=== PATIENT | female | born 1940 | race Caucasian/White ===

== ENCOUNTER 2018-02-20 08:17 | Inpatient (IN) ==
[~2018-02-20 08:17] MED LIST: Metoprolol Tartrate 25 MG Tablet PO SCH
[2018-02-20] MEDS ORDERED: Iohexol 350 MG/ML 50 ML Vial (for Cath Lab) IVCONTRAST ONE (08:18)
[2018-02-20 10:05] LABS: Baso % (Auto) 0.5 % (0.0-2.0); Eos # (Auto) 0.1 th/mm3 (0.0-0.4); Eos % (Auto) 1.3 % (0.0-4.0); Hematocrit 26.9 % (35.0-46.0); Hemoglobin 8.9 gm/dL (11.6-15.3); Lymph # (Auto) 1.5 th/mm3 (1.0-4.8); Mean Corpuscular HGB Conc 33.1 % (32.0-36.0); Mean Corpuscular Hemoglobin 28.2 pg (27.0-34.0); Mean Corpuscular Volume 85.2 fL (80.0-100.0); Mean Platelet Volume 9.1 fL (7.0-11.0); Mono # (Auto) 0.6 th/mm3 (0.0-0.9); Mono % (Auto) 8.7 % (0.0-8.0); Neut # (Auto) 4.8 th/mm3 (1.8-7.7); Neut % (Auto) 68.5 % (16.0-70.0); Platelet Count 243 th/mm3 (150-450); Red Blood Count 3.16 mil/mm3 (4.00-5.30); Red Cell Distribution Width 14.9 % (11.6-17.2)
[2018-02-20 10:15] LABS: Activated Partial Thrombo Time 23.9 sec (23.4-31.7); Prothrombin Time 10.3 sec (9.8-11.6)
[2018-02-20 10:20] LABS: Calcium 8.6 mg/dL (8.5-10.1); Carbon Dioxide 26.9 meq/L (21.0-32.0); Potassium 4.3 meq/L (3.5-5.1)
[2018-02-20] MEDS ORDERED: Heparin/NS PF Inj 1,000 ML ONE (10:42)
[2018-02-20] MEDS ORDERED: Lidocaine PF 1% Inj 30 ML Vial ONE (10:42)
[2018-02-20] MEDS ORDERED: fentaNYL Citrate Inj 100 MCG/2 ML Ampul ONE (10:43)
[2018-02-20] MEDS ORDERED: Sodium Chlor 0.9% Inj 250 ML IV.SIG ONE (11:21)
[2018-02-20] MEDS ORDERED: Atropine Inj 1 MG/ML Vial IV.PUSH PRN (11:21)
[2018-02-20] MEDS ORDERED: Lidocaine 1% Inj 50 ML Vial INFILTRATN PRN (11:21)
[2018-02-20] MEDS ORDERED: Bacitracin Oint 0.9 GM Packet TOPICAL ONE (11:21)
--- NOTE | 2018-02-20 11:35 | P.PCN ---
Date of procedure: 02/20/18 Pre-op diagnosis: Unstable angina Procedure: audograph operator: Baldomero Robert MD Procedures performed: 1. Fluoroscopy with interpretation 2. Left heart catheterization 3. Left ventriculography 4. Coronary angiography Methods: Risks, benefits, and alternatives were discussed with the patient. Patient understood and consented to the procedure. Patient was brought into the cardiac catheterization lab and placed on the catheterization table. Right groin was prepped and draped in sterile fashion. Right groin was anesthetized with 2% lidocaine. Right common femoral artery was cannulated and a 5 Pakistani 11 cm sheath was placed without difficulty. Left heart catheterization: A 5 Pakistani angled pigtail catheter was advanced across the aortic valve without difficulty. Intra-ventricular hemodynamics pressure 106/20 mmHg with a left ventricular end-diastolic pressure of 20 mmHg. Left ventriculography: Left ventriculography was performed in a right anterior oblique view using a 30 cc contrast injection and good opacification. Left ventricular ejection fraction visually estimated at 50%. There appeared to be anterior, anterolateral, apical, and distal inferoapical hypokinesis. No significant mitral regurgitation noted. Coronary angiography: 1. The left main coronary artery has a stent present. The stent has severe in- stent restenosis present. Estimated severity stenosis 90%. 2. The left anterior descending coronary artery has a stent present in the proximal extending into the mid segment which has severe in-stent restenosis of 90%. There is a diagonal branch which is moderate caliber size and has a stenosis of 90% in-stent. The remainder left anterior descending coronary artery and diagonal branches have minor luminal irregularities. 3. The left circumflex coronary artery gives rise a moderate sized ramus intermedius branch with a 60% stenosis proximally. The left circumflex coronary artery is a codominant vessel giving rise to a moderate-sized posterior descending branch which has only minor luminal irregularities. 4. The right coronary artery is also a codominant vessel giving rise to a posterior descending branch. The mid right coronary artery has a 90-95% calcific stenosis. The remainder the vessel has mild luminal irregularities. Conclusions: Severe left main and three-vessel [place] coronary artery disease with severe in- stent restenosis. Low normal left ventricular systolic function with regional LAD territory mild hypokinesis Normal to mildly elevated left-sided filling pressures Plan: At this point we will stop the diagnostic portion of the procedure. We will need to have a lengthy discussion with the patient and family. There is severe in-stent restenosis for the prior bare-metal stents placed in the left main, left anterior descending, and diagonal branches. A percutaneous revascularization again would be complex requiring left ventricular assist device support and multiple stents. 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 Had like to reexamine the case here with our cardiothoracic surgeons and review the CAT scan results. If there is a possibility for surgical revascularization off-pump, that may be in her best interest. If that is not a possibility, we will have to have a discussion of medical therapy/ hospice versus high risk percutaneous coronary intervention. At this point is going to reinitiate a heparin drip. I am going to discontinue her Brilinta. She would need a P2Y12 assay prior to proceeding with cardiothoracic surgery, if she was a candidate. During that time will hopefully protect her from stent thrombosis with the heparin drip.
--- NOTE | 2018-02-20 11:36 | CATHPROC ---
[facility] HIS Report Study Information Study Number Admission Scheduled Start Study Start [id number] Feb 20 2018 8:17AM 02/20/2018 Feb 20 2018 10:38AM [facility] Cardiac Catheterization Admit Source Facility Department Other [facility] Operator Physician and Clinical Staff Initial Baldomero Medina Concrete Smoother Joseph Ricardo,MEMO Recorder Angelica Donaldson,DESKTOP SUPPORT TECHNICIAN Scrub [place], Megan,DESKTOP SUPPORT TECHNICIAN TECH2 Procedures Performed Procedure Location (Site) Vessel Name Angiogram LV LV Ventricle Coronary Angiograms LCA Left Coronary Coronary Angiograms RCA Right Coronary L Heart Cath Wire insertion Fem Art (right) Femoral Art Equipment Time Insurance Office Manager Description Size Mfg Part Number Used/Scraped TRANSDUCER, TRUWAVE [id number] 10:50 [employer] * Used W/STOCKCOCK *[id number] *[id number] *[id number] 10:50 [employer] BLANKET,WARM AIR CCL * Used *[id number] 10:50 [employer] PACK, CCL CUSTOM * Used *[id number] 10:50 [employer] PACER PEN, SKIN DUAL W/ RULER * Used *[id number] PIG STRAIGHT DXTERITY 11:13 [employer] FR 5 [id number] Used CATHETER [id number] 10:50 [employer] WIRE, 3MMJ .035 180CM 180CM Used *[id number] 10:50 [employer] MANIFOLD, 4 PORT * Used *[id number] 10:50 [employer] OMNIPAQUE, 350 MG, 150ML 150ML [id number] Used [id number] 10:50 [employer] MEDICAL SHEATH, FR5 TERUMO (10CM) FR 5 Used *[id number] History: Allergies Allergy Reaction No Known Allergies History: Risk Factors Family History of Hypertension Dyslipidemia Previous OH Previous Heart Failure Premature CAD Yes Yes Yes No No Prior Valve Prior PCI Prior PCIDate Prior CABG Surgery No Yes 04/07/2017 No Cerebrovascular Peripheral Artery Chronic Lung On Dialysis Diabetes Diabetes Therapy Disease Disease Disease No Yes Yes No Yes Oral History: Stress Tests Stress or Imaging Studies Performed No History: OH/CV Data Previous Cath Date 11/05/2017 History: Other Current Smoker Method Quit No Cigarettes 27 Years Ago Comment 1/2 PACK PER DAY FOR 38 YEARS Labs Hgb (g/dl) Hct (%) WBC (l/cumm) Platelets (thousands) 11.60-17.00 35.00-51.00 4.00-11.00 150.00-450.00 8.9 26.9 7 243 Glucose (mg/dl) BUN (mg/dl) Creatinine (mg/dl) BUN:Creatinine (1:x) 74.00-106.00 7.00-18.00 0.50-1.30 10.00-20.00 118 16 0.9 17.8 Na (meq/l) K (meq/l) 136.00-145.00 3.50-5.10 142 4.3 CPK-MB (ng/ML) 0.50-3.60 Not Drawn Medication Medication Total Dose (Bolus/Oral) Medication Total Dosage/Unit 1% XYLOCAINE 20 mL FENTANYL 50 mcg VERSED 1 mg Medications (Bolus/Oral) Medication Time Given Dosage/Unit Administered By Reason 02/20/2018 10:57:17 VERSED 1 mg Joseph Ricardo AM 1 mg VERSED given in lab by Joseph Ricardo RN in Right Antecubital via Peripheral IV. Ordered by Baldomero Glaser. 02/20/2018 10:58:18 FENTANYL 50 mcg Joseph Ricardo AM 50 mcg FENTANYL given in lab by Joseph Ricardo RN in Right Antecubital via Peripheral IV. Ordered by Baldomero Robert. 02/20/2018 10:59:51 1% XYLOCAINE 20 mL Baldomero Robert AM 20 mL 1% XYLOCAINE given in lab by Baldomero Robert via Subcutaneous. Ordered by Baldomero Robert. Medication (Drip) Medication Time Given Dosage/Unit Concentration/Unit Diluent (ml) Solution 02/20/2018 10:46:01 IV Solutions 0 mL (IV) 500 NaCl .9 AM IV Solutions given in lab by Joseph Ricardo RN in Right Antecubital via Peripheral IV. Pump/Drip Ramon w = 20 ml/hr using NaCl .9. Ordered by Baldomero Robert. Initial Case Assessment Cardiovascular HR NIBP 79 146/73 Edema Present Skin color Skin None Normal Warm Dry Circulatory - Right Pulses Dorsalis Pedis Femoral d 3 Scale (0,1,2,3,4,d) Circulatory - Left Pulses Dorsalis Pedis Femoral d 2 Scale (0,1,2,3,4,d) Neurological State Oriented to time-place- Alert Moves all extremities person Respiration - General Respiration Rate SpO2 (%) (B/min) 12 99 Chronological Log Time Study Chronological Log 10:38:13 Patient arrived via Bed. 10:38:14 Patient Name, D.O.B, / Armband Verified By R.N. 10:38:15 Consent signed by the physician and the patient and verified by the [facility] Operator staff. 10:38:17 Pre-op and post- op instructions given; patient acknowledges understanding of instructions. 10:38:20 Verbal Stimulation=2 Physical Stimulation=2 Airway=2 Respiration=2 TOTAL=8. (0=absent, 1=li mited, 2=present) 10:42:58 Reference ECG taken Vitals capture started with the following parameters, Patient=Adult, Interval=5 min, Initial Pr gjiaby=429 mmHg, 10:45:51 Deflation Rate=5 mmHg, Cuff placed on Left Arm 10:45:55 Patient has been NPO for More than 6Hrs. 10:45:56 NO Skin Breakdown- 10:45:59 Patient Warmer Placed on the Table. 10:46:01 A # 20 IV was noted in the Antecubital (right). Grade = 0 IV Solutions given in lab by Joseph Ricardo RN in Right Antecubital via Peripheral IV. Pump/Dr ip Flow = 20 ml/hr using 10:46:01 NaCl .9. Ordered by Baldomero Robert. 10:46:02 History and physical on the chart or being dictated. 10:46:29 HR=79 bpm, AKKB=737/73 mmhg, SpO2=99.0 %, Resp=12 B/min, Pain=0, Frankie=10, Snow=2 Assessment: Initial Case, HR=79 BPM, HQLK=151/73 mmhg, Edema=None, Color=Normal, Skin = Warm, D ry Right Pulses: Jourdan Ped=d, Femoral=3 10:51:09 Left Pulses: Jourdan Ped=d, Femoral=2 Neurological: State=Alert, Ox3, BERRY Respiration: Resp=12 B/min, SpO2=99 % 10:51:30 HR=78 bpm, JZTX=941/68 mmhg, SpO2=99.0 %, Resp=13 B/min, Pain=0, Frankie=10, Snow=2 10:52:03 Bilateral groins prepped with 2% chlorhexidine, and draped after a 3 minute waiting time. 10:53:09 Pressure channel 1 zeroed. 10:56:29 HR=80 bpm, UCBI=083/70 mmhg, SpO2=98.0 %, Resp=12 B/min, Pain=0, Frankie=10, Snow=2 Time Out. Correct patient, correct procedure, correct physician, labs, allergies, and equipment verified with medical laboratory manager 10:57:13 team present. Fire risk assesment completed (see hard stop sheet for coding). Time Out Conc urred by MD and individual staff in procedure. 10:57:17 1 mg VERSED given in lab by Joseph Ricardo RN in Right Antecubital via Peripheral IV. Orde red by Baldomero Robert. 10:58:18 50 mcg FENTANYL given in lab by Joseph Ricardo RN in Right Antecubital via Peripheral IV. Ordered by Baldomero Robert. 10:58:19 Case Start 10:59:51 20 mL 1% XYLOCAINE given in lab by Baldomero Robert via Subcutaneous. Ordered by Kala Robert en. 10:59:59 Access site was Right Femoral Artery. 11:00:17 A SHEATH, FR5 TERUMO (10CM) FR 5 was advanced into the Fem Art (right) using the Percutaneo us technique. 11:00:27 A WIRE, 3MMJ .035 180CM 180CM was inserted via Fem Art (right). A JR 4.0 INFINITI CATHETER FR 5 was advanced over a wire. OMNIPAQUE, 350 MG, 150ML 150ML was us ed for 11:00:34 injections. 11:01:28 HR=77 bpm, ZVSO=520/59 mmhg, SpO2=90.0 %, Resp=20 B/min, Pain=0, Frankie=10, Snow=2 11:01:50 Wire removed Recorded Pressure: Ao, HR=73, Condition=Condition 1 11:02:27 (Aorta) Ao 100/40/64 Recorded Pressure: LV, HR=79, Condition=Condition 1 11:02:34 (Left Ventricle) LV 110/41/41 11:04:04 The RCA was injected and visualized at various angles. OMNIPAQUE, 350 MG, 150ML 150ML used . After removing the current catheter a JL 4.0 INFINITI CATHETER FR 5 was advanced over a WIRE, 3 MMJ .035 180CM 11:05:57 180CM. 11:06:07 The LCA was injected and visualized at various angles. OMNIPAQUE, 350 MG, 150ML 150ML use d. 11:06:27 HR=82 bpm, KCUC=957/57 mmhg, SpO2=94.0 %, Resp=19 B/min, Pain=0, Frankie=10, Snow=2 11::07 Catheter was removed ::06 A PIG STRAIGHT DXTERITY CATHETER FR 5 was advanced over a wire. contrast was used for inje ctions. 11:11:26 HR=80 bpm, FPIL=386/64 mmhg, SpO2=95.0 %, Resp=20 B/min, Pain=0, Frankie=10, Snow=2 11:14:18 The LV was injected at 10 cc/sec for a total of 30. OMNIPAQUE, 350 MG, 150ML 150ML used. Recorded Pressure: LV, HR=76, Condition=Condition 1 11:14:47 (Left Ventricle) LV 106/20/28 11:16:27 HR=79 bpm, NIBP=99/55 mmhg, SpO2=95.0 %, Resp=19 B/min, Pain=0, Frankie=10, Snow=2 11:17:00 Catheter was removed 11:17:34 Case End (Physician broke scrub) 11:17:50 Sheath removed; pressure applied to access site. 11:21:24 HR=79 bpm, RFAQ=328/57 mmhg, Resp=20 B/min, Pain=0, Frankie=10, Snow=2 11:26:25 HR=72 bpm, PIWN=109/56 mmhg, SpO2=98 %, Resp=19 B/min, Pain=0, Frankie=10, Snow=2 11:30:29 Sterile dressing applied to site 11:30:33 No case complications noted. 11:31:28 HR=71 bpm, RKOW=698/57 mmhg, SpO2=96.0 %, Resp=20 B/min, Pain=0, Frankie=10, Snow=2 11:32:47 Vitals capture stopped. 11:33:02 A Left Heart Cath was performed. 11:33:50 Patient moved to stretcher End Study - Contrast Media Used In Study Contrast Total Opened (mL) Total Used (mL) Total Wasted (mL) Omnipaque 45 45 0 End Study - Maximum Contrast Load Max Contrast Load (mL) 282.8 End Study - Radiation Exposure Fluoro Time (minutes) 3.3 End Study - Patient Disposition Complications Transferred To No [facility] Operator Holding
[2018-02-20] MEDS ORDERED: Dextrose 50% in Water 50 ML Vial IV.PUSH PRN ×2 (12:58→17:07)
[2018-02-20] MEDS ORDERED: Sodium Chloride 0.9% Irr Bot 500 ML, ceFAZolin Inj 500 MG IRRIGATION SCH ×2 (13:00)
[2018-02-20] MEDS ORDERED: Sodium Chlor 0.9% Inj 77.5 ML, Papaverine Inj 60 MG, Nitroglycerin Inj 100 MCG, dilTIAZ... IRRIGATION SCH ×3 (13:00)
[2018-02-20] MEDS ORDERED: Chlorhexidine 4% Topical 120 APPLIC/120 ML Bottle TOPICAL SCH (13:00)
[2018-02-20] MEDS ORDERED: ceFAZolin Inj 2,000 MG in Sodium Chlor 0.9% Inj 80 ML IV.SIG SCH (13:00)
[2018-02-20] MEDS ORDERED: ceFAZolin 2 GM IV IV.SIG SCH (14:00)
[2018-02-20] MEDS ORDERED: Insulin Regular (For Infusion) 100 UNIT in Sodium Chlor 0.9% Inj 99 ML IV.CONT PRN (14:00)
--- NOTE | 2018-02-20 14:56 | US ---
EXAM DATE: 02/20/2018 2:41 PM EST AGE/SEX: 77 years / Female INDICATIONS: Pre-op CABG. CLINICAL DATA: This is the patient's initial encounter. Patient reports that signs and symptoms have been present for 1 day and indicates a pain score of 0/10. MEDICAL/SURGICAL HISTORY: Cardiovascular disease. Diabetes. Hypercholesterolemia. Hypertensi on. PAD/ PVD. Uterine cancer. Coronary artery stent. COMPARISON: No prior exams available for comparison. TECHNIQUE: Venous ultrasound of both lower extremities was performed from the inguinal ligament to t he proximal calf. Real-time, color Doppler and spectral tracing, compression and augmentation techni ques were used. FINDINGS: Right Leg: Normal compression of the deep venous system from the inguinal region to the proximal shanice f. No echogenic clot is seen. Normal response of the venous system to augmentation and respiration. Left Leg: Normal compression of the deep venous system from the inguinal region to the proximal calf . No echogenic clot is seen. Normal response of the venous system to augmentation and respiration. CONCLUSION: 1. Negative for deep venous thrombosis Electronically signed by: Rickie Guerrier MD 02/20/2018 2:55 PM EST
--- NOTE | 2018-02-20 14:57 | US ---
EXAM DATE: 02/20/2018 2:44 PM EST AGE/SEX: 77 years / Female INDICATIONS: Pre-op CABG. CLINICAL DATA: This is the patient's initial encounter. Patient reports that signs and symptoms have been present for 1 day and indicates a pain score of 0/10. MEDICAL/SURGICAL HISTORY: Cardiovascular disease. Diabetes. Hypercholesterolemia. Hypertensi on. PAD/ PVD. Uterine cancer. Coronary artery stent. COMPARISON: [facility] [place] VENOUS DOPPLER LEG BI, 02/20/2018. . MEASUREMENTS: RIGHT THIGH: Proximal:__5 mm Mid:__ 3 mm Distal:__3 mm LEFT THIGH: Proximal:__6 mm Mid:__4 mm Distal:__3 mm RIGHT CALF: Proximal:__1 mm Mid:__Non-visualized Distal:__Non-visualized LEFT CALF: Proximal:__1 mm Mid:__Thrombosed Distal:__Thrombosed FINDINGS: The venous system of the lower extremities are patent by color Doppler imaging. Measurements of the leg veins (in mm) are listed above. CONCLUSION: 1. Venous mapping as described above. Thrombosis of calf vessels on the left Electronically signed by: Rickie Guerrier MD 02/20/2018 2:56 PM EST
--- NOTE | 2018-02-20 15:17 | US ---
EXAM DATE: 02/20/2018 2:36 PM EST AGE/SEX: 77 years / Female INDICATIONS: Pre-op CABG. CLINICAL DATA: This is the patient's initial encounter. Patient reports that signs and symptoms have been present for 1 day and indicates a pain score of 0/10. MEDICAL/SURGICAL HISTORY: Cerebrovascular disease. Diabetes. Hypercholesterolemia. Hypertens ion. PAD/PVD. Uterine cancer. Coronary artery stent. COMPARISON: . VELOCITY PARAMETERS: ICA/CCA Ratio: Right 5.5 , Left 3.3 ICA: Right 375 cm/sec, Left 266 cm/sec CCA: Right 69 cm/sec, Left 80 cm/sec ECA: Right 120 cm/sec, Left 141 cm/sec Vertebral: Right 90 cm/sec antegrade, Left 56 cm/sec antegrade FINDINGS: Right Carotid: Significantly elevated ratio and velocity in the right internal carotid with extensive atherosclerotic disease critical stenosis is suspected. Left Carotid: Elevation of the velocities and ratios in the left internal carotid high-grade stenosi s is suspected. The waveforms are within normal limits. CONCLUSION: 1. Right Internal Carotid Artery: High-grade to critical stenosis internal carotid origin 2. Left Internal Carotid Artery: High-grade stenosis internal carotid origin 3. CT angiography could be used further evaluate Electronically signed by: Rickie Guerrier MD 02/20/2018 3:16 PM EST
--- NOTE | 2018-02-20 15:48 | P.CONIM ---
History of Present Illness Consult date: 02/20/18 Requesting Physician: Baldomero Robert Reason for Consult: Medical Management Primary Care Provider: Kain Tinajero History of Present Illness: Mrs. Meredith is a pleasant 77 y/o female with CAD/hx of IN in 11/2017, HTN, PAD, hyperlipidemia, and diabetes mellitus. She was previously hospitalized at [facility] in 11/2017 for NSTEMI. At that time she underwent LHC on 11/10/[address] Robert resulting in successful orbital rotational atherectomy and balloon angioplasty with endovascular stenting with bare metal stents to the left main, mid LAD, and diagonal branches. 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 She was switched from Plavix to Brilinta and ASA during that admission. Pt was followed as an outpt by Dr. Robert and continued to have intermittent chest pain. She has been on Imdur 120mg daily without relief. [place] [facility] [place] with cardiac catheterization as she had noted EKG changes on 02/19/[address] Fenton outpt notes, which noted ST-T depression anterolaterally in V4-V6 when compared to previous EKG from 01/01/2018. Pt underwent LHC on 02/20/18 which revealed severe left main and three-vessel [place] coronary artery disease with severe in-stent restenosis, low normal left ventricular systolic function with regional LAD territory mild hypokinesis, and normal to mildly elevated left-sided filling pressures. Pt is being admitted for evaluation by Cardiothoracic surgery for consideration for CABG. Pt has been placed on Heparin gtt. She currently denies any chest pain, SOB, palpitations, dizziness, nausea/vomiting, or headaches. Past Medical Hx: CAD with hx of IN in 11/2017 HTN PAD Hyperlipidemia Diabetes mellitus Diabetic nephropathy Hx of cervical cancer PUD Anemia CKD, stage 3 2D echo (11/06/2017) --> EF 55-60%, Global left ventricular wall motion and contractility are WNL. Past Surgical Hx: LHC on 11/10/[address] Robert --> successful orbital rotational atherectomy and balloon angioplasty with endovascular stenting with bare metal stents to the left main, mid LAD, and diagonal branches. EGD on 11/08/[address] Álvaro --> non bleeding ulcer, gastritis, gastric erosions and esophagitis. Thromboendarterectomy Partial hysterectomy in 1981 Cataract surgery Tonsillectomy Family Hx: Brothers with hx of CAD Social Hx: Remote hx of tobacco use, smoked less than 1ppd x 40 years, quit in 1991 Denies any alcohol or illicit drug use Pt lives locally with her [facility] Medical History Medical History CAD (coronary artery disease) (Acute) Diabetes (Acute) Glaucoma (Acute) HLD (hyperlipidemia) (Acute) HTN (hypertension) (Acute) PAD (peripheral artery disease) (Acute) PVD (peripheral vascular disease) (Acute) Uterine cancer (Acute) Surgical History Surgical History Stented coronary artery (Acute) Social History Social History Substance History: No History of Abuse Smoking Status: Former smoker Tobacco Type: Cigarettes How Often Do You Have a Drink Containing Alcohol: Never Medications and Allergies Allergies Allergy/AdvReac Type Severity Reaction Status Date / Time No Known Allergies Allergy Mild Uncoded 08/30/09 10:27 Home Medications Medication Instructions Recorded Confirmed Type albuterol sulfate [Ventolin HFA] 2 puff INHALATION Q4-6H PRN 02/20/18 02/20/18 History aspirin [Aspirin Low Dose] 81 mg PO DAILY 02/20/18 02/20/18 History brimonidine 1 drp OPHTHALMIC (EYE) TID 02/20/18 02/20/18 History clonidine 1 patch TRANSDERMAL QWEEK 02/20/18 02/20/18 History dorzolamide 1 drp OPHTHALMIC (EYE) TID 02/20/18 02/20/18 History ferrous sulfate, dried [Slow 160 mg PO DAILY 02/20/18 02/20/18 History Release Iron] isosorbide mononitrate 120 mg PO DAILY 02/20/18 02/20/18 History lisinopril 20 mg PO DAILY 02/20/18 02/20/18 History loratadine [Claritin] 10 mg PO DAILY PRN 02/20/18 02/20/18 History metformin 500 mg PO BID 02/20/18 02/20/18 History metoprolol tartrate 50 mg PO BID 02/20/18 02/20/18 History nitroglycerin 0.4 mg SUBLINGUAL Q5-15M PRN 02/20/18 02/20/18 History pantoprazole 20 mg PO DAILY 02/20/18 02/20/18 History simvastatin 40 mg PO QPM 02/20/18 02/20/18 History timolol 1 drop EACH EYE DAILY 02/20/18 02/20/18 History Active Medications: Active Medications Atropine Sulfate (Atropine Inj) 0.5 mg IV.PUSH UNSCH PRN PRN Reason: VAGAL REPONSE Chlorhexidine Gluconate (Hibiclens 4% Topical) 1 applicatio TOPICAL PATIENT INTAKE REPRESENTATIVE MAIRANO Stop: 02/26/18 12:58 Sodium Chloride 77.5 ml/Papaverine HCl 60 mg/Nitroglycerin 100 mcg/Diltiazem HCl 100 mg 0 ml IRRIGATION PATIENT INTAKE REPRESENTATIVE MARIANO Stop: 02/26/18 12:58 Sodium Chloride 500 ml/ (Cefazolin Sodium 500 mg) 0 ml IRRIGATION PATIENT INTAKE REPRESENTATIVE [facility] Stop: 02/26/18 13:00 Dextrose (D50w Vial) 50 ml IV.PUSH UNSCH PRN PRN Reason: PER HYPOGLYCEMIA PROTOCOL Heparin Sodium/Dextrose (Heparin/D5w 25,000 U/250 Ml) 25,000 unit in 250 mls @ 0 mls/hr IV.CONT TITRATE PRN; Protocol PRN Reason: Per Protocol Insulin Human Regular 100 unit (/ Sodium Chloride) 100 mls @ 3 mls/hr IV.CONT TITRATE PRN; Protocol PRN Reason: See Protocol Cefazolin Sodium/Dextrose (Ancef 2 Gm Premix Inj) 2 gm in 50 mls @ 100 mls/hr IV.SIG PATIENT INTAKE REPRESENTATIVE [facility] Stop: 02/26/18 13:59 Lidocaine HCl (Xylocaine 1% Inj (50 Ml)) 10 ml INFILTRATN UNSCH PRN PRN Reason: SHEATH REMOVAL Stop: 02/21/18 11:20 Lorazepam (Ativan Inj) 0.5 mg IV.PUSH UNSCH PRN PRN Reason: ANXIETY Stop: 02/21/18 11:20 Metoprolol Tartrate (Lopressor) 12.5 mg PO PATIENT INTAKE REPRESENTATIVE [facility] Stop: 02/26/18 13:00 Oxycodone/Acetaminophen (Percocet 5/325 Mg) 1 tab PO Q4H PRN PRN Reason: PAIN SCALE 1 TO 4 Oxycodone/Acetaminophen (Percocet 5/325 Mg) 2 tab PO Q4H PRN PRN Reason: PAIN SCALE 5 TO 10 Sodium Chloride (Ns Flush) 2 ml IV.FLUSH BID MARIANO Sodium Chloride (Ns Flush) 2 ml IV.FLUSH PRN PRN PRN Reason: FLUSH AFTER USING IV ACCESS Physical Exam Vital signs: Last Vital Signs Temp 97.8 F 02/20/18 08:30 Pulse 72 02/20/18 08:30 Resp 15 02/20/18 08:30 BP 137/66 02/20/18 08:30 Pulse Ox 100 02/20/18 11:35 Narrative: GENERAL: NAD, AAOx3 SKIN: Warm and dry. HEENT: Atraumatic. Normocephalic. Pupils equal and round. No scleral icterus. No injection or drainage. No nasal bleeding or discharge. Mucous membranes pink and moist. Trachea midline. No JVD. CARDIO: Regular rate and rhythm. RESP: No accessory muscle use. Clear to auscultation. Breath sounds equal bilaterally. ABD: Abdomen soft, non-tender, nondistended. Hepatic and splenic margins not palpable. EXT: Extremities without clubbing, cyanosis, or edema. No obvious deformities. NEURO: Awake and alert. No obvious cranial nerve deficits. Motor grossly within normal limits. Five out of 5 muscle strength in the arms and legs. Normal speech. PSYCH: Appropriate mood and affect; insight and judgment normal. Results Labs CBC & Chem 7: 02/20/18 09:55 02/20/18 09:55 Assessment and Plan Assessment (1) CAD (coronary artery disease): Code(s): I25.10 - Atherosclerotic heart disease of [place] coronary artery without angina pectoris Status: Chronic (2) Hyperlipidemia: Code(s): E78.5 - Hyperlipidemia, unspecified Status: Chronic (3) HTN (hypertension): Code(s): I10 - Essential (primary) hypertension Status: Chronic (4) Diabetes mellitus: Code(s): E11.9 - Type 2 diabetes mellitus without complications Status: Chronic Plan CAD with in-stent restenosis Chest pain with EKG changes - Pt is a 77 y/o female with CAD/hx of IN in 11/2017, HTN, PAD, hyperlipidemia, and diabetes mellitus. She was previously hospitalized at [facility] in 11/2017 for NSTEMI. At that time she underwent LHC on 11/10/[address] Robert resulting in successful orbital rotational atherectomy and balloon angioplasty with endovascular stenting with bare metal stents to the left main, mid LAD, and diagonal branches. 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 She was switched from Plavix to Brilinta and ASA during that admission. Pt was followed as an outpt by Dr. Robert and continued to have intermittent chest pain. She has been on Imdur 120mg daily without relief. - [place] [facility] [place]evaluation with cardiac catheterization as she had noted EKG changes on 02/19/[address] Fenton outpt notes, which noted ST-T depression anterolaterally in V4-V6 when compared to previous EKG from 01/01/2018. - Pt underwent LHC on 02/20/18 which revealed severe left main and three-vessel [place] coronary artery disease with severe in-stent restenosis, low normal left ventricular systolic function with regional LAD territory mild hypokinesis, and normal to mildly elevated left-sided filling pressures. - Pt is being admitted for evaluation by Cardiothoracic surgery for consideration for CABG. - Pt has been placed on Heparin gtt. - Resume home doses of Imdur, Metoprolol, Simvastatin, Lisinopril, and Clonidine patch. - Pt has been evaluated by Cardiothoracic surgery and pending pre-operative workup is tentatively planned for CABG next week. HTN - Cont. home meds - Monitor Diabetes Mellitus, Hgb A1C 5.0 on 02/09/18 - Hold Metformin 500mg BID - NovoLog SSI - Accu checks Hyperlipidemia - Cont. home meds
--- NOTE | 2018-02-20 16:16 | P.PNCV ---
- Note Subjective/Hospital Course: pt seen and evaluated, full consult to follow sts data discussed with pt RIS[facility]ORES Procedure: Isolated CAB CALCULATE Risk of Mortality: 4.478% Renal Failure: 2.659% Permanent Stroke: 1.476% Prolonged Ventilation: 13.305% DSW Infection: 0.163% Reoperation: 4.788% Morbidity or Mortality: 19.894% Short Length of Stay: 20.500% Long Length of Stay: 9.830% Objective: Vital Signs - 24 hr 02/20/18 08:30 02/20/18 11:35 Temperature 97.8 F Pulse Rate 72 Respiratory Rate 15 Blood Pressure 137/66 Pulse Oximetry 94 L 100 Labs: Laboratory Results - last 12 hr 02/20/18 02/20/18 02/20/18 09:55 09:55 09:55 WBC 7.0 RBC 3.16 L Hgb 8.9 L Hct 26.9 L MCV 85.2 MCH 28.2 MCHC 33.1 RDW 14.9 Plt Count 243 MPV 9.1 Neut % (Auto) 68.5 Lymph % (Auto) 21.0 [place] % (Auto) 8.7 H Eos % (Auto) 1.3 Baso % (Auto) 0.5 Neut # (Auto) 4.8 Lymph # (Auto) 1.5 [place] # (Auto) 0.6 Eos # (Auto) 0.1 Baso # (Auto) 0.0 WBC Differential . Differential Comment Auto diff final PT 10.3 INR 1.0 APTT 23.9 Sodium 142 Potassium 4.3 Chloride 108 H Carbon Dioxide 26.9 Anion Gap 7 BUN 16 Creatinine 0.96 Estimated GFR 56 L Random Glucose 118 H Calcium 8.6 Result Diagrams: 02/20/18 09:55 02/20/18 09:55
[2018-02-20] MEDS: Heparin Drip 25,000 UNIT/250 ML BAG IV.CONT PRN (16:44)
[2018-02-20 16:46] LABS: Bilirubin,Urine Negative (Negative); Clarity,Urine Clear (Clear); Color,Urine Yellow (Yellw/Straw); Glucose,Urine (UA) Negative (Negative); Leukocyte Esterase,Urine Trace (Negative); Mucus,Urine Few /lpf (Occasional); Nitrite,Urine Negative (Negative); Specific Gravity,Urine 1.031 (1.002-1.035); Squamous Epithelial Cell,Urine 1 /hpf (0-5)
[2018-02-20] MEDS ORDERED: Loratadine 10 MG Tablet PO PRN (16:56)
--- NOTE | 2018-02-20 16:56 | MB ---
cc: Suri Dos Santos DATE: 02/20/2018 HISTORY OF PRESENT ILLNESS: A 77-year-old patient of Dr. Baldomero Robert; also Kain Tinajero, Primary Care; who was electively admitted for a cardiac catheterization complaining of intermittent chest pain, midsternal heaviness radiating across her chest, mainly occurs at night. She has a significant history of coronary artery disease. She has been maximized on medication to include Imdur extended release 120 daily, Brilinta and aspirin; also has chronic claudication of her lower extremities, mainly the left leg. She was recently hospitalized for a non-STEMI in November 2017, where she underwent heart catheterization, placement of an Impella device. She had an orbital rotational atherectomy of the left main coronary artery, also a PCI endovascular stenting with bare metal stents the left main, mid left, anterior descending and diagonal branches. Despite maximizing medications the patient has had continued angina; underwent catheterization today, which showed an ejection fraction of 50%, left main disease of 90% proximal LAD, 90%, the mid distal LAD 30%. The diagonal was 90%, the circumflex was 20%, the RCA 90% and the ramus 75%. We were consulted to evaluate for coronary artery bypass grafting. PAST MEDICAL HISTORY: Includes peripheral arterial disease, hypertension, coronary artery disease, hyperlipidemia, chronic anemia, chronic kidney disease stage III, diabetes mellitus with neuropathy, hypertension, hyperlipidemia, lumbar radiculopathy. PAST SURGICAL HISTORY: 1. Includes recent bare-metal stent placement and November 2017, bilateral cataract surgery. She has had an atherectomy of the left leg for SFA occlusion; EGD where they found nonbleeding ulcer some gastritis, history of hysterectomy, thromboendarterectomy, tonsillectomy. ALLERGIES: THE PATIENT HAS NO KNOWN ALLERGIES. HOME MEDICATIONS: Include: 1. Simvastatin. 2. Metoprolol. 3. Lisinopril. 4. Clonidine. 5. Protonix. 6. Metformin. 7. Claritin. 8. Imdur. 9. Ventolin inhaler. 10. Nitro p.r.n. 11. Ferrous sulfate. 12. Aspirin. 13. Timolol eyedrops. 14. Dorzolamide 15. Brilinta. FAMILY HISTORY: Noncontributory. SOCIAL HISTORY: No alcohol; patient is with children, prior history of tobacco abuse. REVIEW OF SYSTEMS: GENERAL: No night sweats, fever, heat and cold intolerance. SKIN: No psoriasis, itching or hives. HEENT: No blurred vision, hearing loss. RESPIRATORY: Positive for shortness of breath. CARDIOVASCULAR: As above in the HPI. GASTROINTESTINAL: No diarrhea or vomiting. GENITOURINARY: No burning, frequency, urgency. CENTRAL NERVOUS SYSTEM: No history of TIA, CVA or seizure disorder. ENDOCRINOLOGY: Positive for diabetes. PHYSICAL EXAMINATION: VITAL SIGNS: Blood pressure 130/60, heart rate is 72, temperature max 97.8, O2 saturation 100 on room air. GENERAL: Awake, alert stated age, in no acute distress. Daughters are at the bedside and the . HEENT: Head is normocephalic, atraumatic. She does have a carotid bruit on the left, also on the right. HEART: Heart sounds S1, S2. She has got a grade 2/6 systolic murmur best heard in the right upper sternal border. LUNGS: Diminished in the bases, otherwise clear to auscultation. ABDOMEN: Soft, nontender. No masses or organomegaly. EXTREMITIES: Reveal no cyanosis, clubbing, or edema. LABORATORY DATA: Recent lab work shows hemoglobin 9.1, hematocrit of 29. White cell count of 6.5, platelet count of 283. Sodium 139, potassium 4.3, BUN of 16, creatinine 0.97. RADIOLOGICAL EXAMS: 1. Right internal carotid has high-grade critical stenosis in the internal carotid origin. The left has a high-grade stenosis in the internal carotid origin. 2. CTA is currently pending. IMPRESSION: This is a 77-year-old female with multiple comorbidities with an STS risk score 4.478. Cardiac films have been evaluated by Dr. Arabella Avila; evaluation for coronary artery bypass graft x4. At this time, we will schedule 02/25/2018. In the meantime, she is to obtain the CTA of the neck in regard to her carotid artery stenosis. She is also to be off the Brilinta for 5 days prior to surgery. Continue home medications. We will need to recheck her hemoglobin with her chronic history of anemia. I have discussed this also with Dr. Robert. ELIO Petty MD JRT/argenis , 04:27 PM , 04:39 PM
[2018-02-20] MEDS: Nitroglycerin Drip Premix 50 MG/250 ML BOTTLE IV.CONT PRN (18:30)
[2018-02-20] MEDS: Dorzolamide 2% Opth Drops 10 ML Bottle EACH EYE SCH (18:47)
[2018-02-20] MEDS: Brimonidine 0.2% Opth Drops 5 ML Bottle EACH EYE SCH (18:47)
[2018-02-20] MEDS ORDERED: Nitroglycerin Drip Premix 50 MG/250 ML BOTTLE ONE (19:30)
[2018-02-20] MEDS: Metoprolol Tartrate 50 MG Tablet PO SCH (20:53)
[2018-02-20] MEDS: Insulin NovoLOG Aspart Correctional Sugar Inj SQ SCH (21:20)
[2018-02-20] MEDS: Lisinopril 10 MG Tablet PO SCH (21:25)
[2018-02-21 00:44] LABS: Baso # (Auto) 0.1 th/mm3 (0.0-0.2); Baso % (Auto) 0.7 % (0.0-2.0); Eos # (Auto) 0.1 th/mm3 (0.0-0.4); Eos % (Auto) 1.3 % (0.0-4.0); Hematocrit 27.1 % (35.0-46.0); Hemoglobin 8.7 gm/dL (11.6-15.3); Lymph # (Auto) 1.8 th/mm3 (1.0-4.8); Lymph % (Auto) 24.9 % (9.0-44.0); Mean Corpuscular HGB Conc 32.1 % (32.0-36.0); Mean Corpuscular Hemoglobin 27.2 pg (27.0-34.0); Mean Corpuscular Volume 84.8 fL (80.0-100.0); Mean Platelet Volume 9.2 fL (7.0-11.0); Mono # (Auto) 0.6 th/mm3 (0.0-0.9); Mono % (Auto) 8.6 % (0.0-8.0); Neut # (Auto) 4.5 th/mm3 (1.8-7.7); Neut % (Auto) 64.5 % (16.0-70.0); Platelet Count 242 th/mm3 (150-450); Red Blood Count 3.19 mil/mm3 (4.00-5.30); Red Cell Distribution Width 15.1 % (11.6-17.2); White Blood Count 7.1 th/mm3 (4.0-11.0)
[2018-02-21] MEDS: Insulin NovoLOG Aspart Correctional Sugar Inj SQ SCH ×4 (07:43→20:25)
--- NOTE | 2018-02-21 08:41 | P.PNCA ---
Subjective Interval history: Family at bedside. The patient had heavy left-sided chest pain radiating to the left arm last night, 8/10 in severity, started on nitro gtt. which she states helps a lot and chest discomfort now down to about 4/10. Medications and Allergies Active Medications: Active Medications Atropine Sulfate (Atropine Inj) 0.5 mg IV.PUSH UNSCH PRN PRN Reason: VAGAL REPONSE Brimonidine Tartrate (Alphagan 0.2% Opth Drops) 1 drops EACH EYE TID [facility] Last Admin: 02/20/18 18:47 Dose: 1 drops Chlorhexidine Gluconate (Hibiclens 4% Topical) 1 applicatio TOPICAL [employer]LY[employer] [facility] Stop: 02/26/18 12:58 Clonidine HCl (Catapress-Tts 0.2 Mg Patch.7d) 1 patch T-DERMAL WEEKLY [facility] Last Admin: 02/20/18 18:48 Dose: 1 patch Sodium Chloride 77.5 ml/Papaverine HCl 60 mg/Nitroglycerin 100 mcg/Diltiazem HCl 100 mg 0 ml IRRIGATION [employer] [facility] Stop: 02/26/18 12:58 Sodium Chloride 500 ml/ (Cefazolin Sodium 500 mg) 0 ml IRRIGATION [employer]LY[employer] [facility] Stop: 02/26/18 13:00 Dextrose (D50w Vial) 50 ml IV.PUSH UNSCH PRN PRN Reason: PER HYPOGLYCEMIA PROTOCOL Dorzolamide HCl (Trusopt 2% Opth Drops) 1 drop EACH EYE TID [facility] Last Admin: 02/20/18 18:47 Dose: 1 drop Glucagon (Glucagon Inj) 1 mg OTHER PRN PRN PRN Reason: for Hypoglycemia Protocol Heparin Sodium/Dextrose (Heparin/D5w 25,000 U/250 Ml) 25,000 unit in 250 mls @ 0 mls/hr IV.CONT TITRATE PRN; Protocol PRN Reason: Per Protocol Last Titration: 02/20/18 19:00 Dose: 700 units/hr, 7 mls/hr Cefazolin Sodium/Dextrose (Ancef 2 Gm Premix Inj) 2 gm in 50 mls @ 100 mls/hr IV.SIG [employer] [facility] Stop: 02/26/18 13:59 Nitroglycerin/Dextrose (Nitroglycerin Drip Premix) 50 mg in 250 mls @ 0 mls/hr IV.CONT TITRATE PRN; Protocol PRN Reason: Per Protocol Last Admin: 02/20/18 18:30 Dose: 10 mcg/min, 3 mls/hr Insulin Aspart (Novolog Insulin Correctional Sugar Inj) 0 unit SQ ACHS [facility]; Protocol Last Admin: 02/21/18 07:43 Dose: Not Given Isosorbide Mononitrate (Imdur) 120 mg PO DAILY [facility] Lidocaine HCl (Xylocaine 1% Inj (50 Ml)) 10 ml INFILTRATN UNSCH PRN PRN Reason: SHEATH REMOVAL Stop: 02/21/18 11:20 Lisinopril (Prinivil) 10 mg PO BID [facility] Last Admin: 02/20/18 21:25 Dose: Not Given Loratadine (Claritin) 10 mg PO DAILY PRN PRN Reason: ALLERGY SYMPTOMS Lorazepam (Ativan Inj) 0.5 mg IV.PUSH UNSCH PRN PRN Reason: ANXIETY Stop: 02/21/18 11:20 Metoprolol Tartrate (Lopressor) 12.5 mg PO [employer] [facility] Stop: 02/26/18 13:00 Metoprolol Tartrate (Lopressor) 50 mg PO BID [facility] Last Admin: 02/20/18 20:53 Dose: 50 mg Oxycodone/Acetaminophen (Percocet 5/325 Mg) 1 tab PO Q4H PRN PRN Reason: PAIN SCALE 1 TO 4 Oxycodone/Acetaminophen (Percocet 5/325 Mg) 2 tab PO Q4H PRN PRN Reason: PAIN SCALE 5 TO 10 Last Admin: 02/20/18 20:54 Dose: 2 tab Pantoprazole Sodium (Protonix) 20 mg PO DAILY [facility] Patch Removal (Remove Old Patch) 1 each T-DERMAL WEEKLY [facility] Pravastatin Sodium (Pravachol) 80 mg PO DAILY@1800 [facility] Last Admin: 02/20/18 18:47 Dose: 80 mg Sodium Chloride (Ns Flush) 2 ml IV.FLUSH BID [facility] Last Admin: 02/20/18 21:25 Dose: Not Given Sodium Chloride (Ns Flush) 2 ml IV.FLUSH PRN PRN PRN Reason: FLUSH AFTER USING IV ACCESS Timolol Maleate (Timoptic 0.5% Drops) 1 drops EACH EYE DAILY [facility] Allergies Allergy/AdvReac Type Severity Reaction Status Date / Time No Known Allergies Allergy Mild Uncoded 08/30/09 10:27 Home Medications Medication Instructions Recorded Confirmed Type albuterol sulfate [Ventolin HFA] 2 puff INHALATION Q4-6H PRN 02/20/18 02/20/18 History aspirin [Aspirin Low Dose] 81 mg PO DAILY 02/20/18 02/20/18 History brimonidine 1 drp OPHTHALMIC (EYE) TID 02/20/18 02/20/18 History clonidine 1 patch TRANSDERMAL QWEEK 02/20/18 02/20/18 History dorzolamide 1 drp OPHTHALMIC (EYE) TID 02/20/18 02/20/18 History ferrous sulfate, dried [Slow 160 mg PO DAILY 02/20/18 02/20/18 History Release Iron] isosorbide mononitrate 120 mg PO DAILY 02/20/18 02/20/18 History lisinopril 20 mg PO DAILY 02/20/18 02/20/18 History loratadine [Claritin] 10 mg PO DAILY PRN 02/20/18 02/20/18 History metformin 500 mg PO BID 02/20/18 02/20/18 History metoprolol tartrate 50 mg PO BID 02/20/18 02/20/18 History nitroglycerin 0.4 mg SUBLINGUAL Q5-15M PRN 02/20/18 02/20/18 History pantoprazole 20 mg PO DAILY 02/20/18 02/20/18 History simvastatin 40 mg PO QPM 02/20/18 02/20/18 History timolol 1 drop EACH EYE DAILY 02/20/18 02/20/18 History Physical Exam Vital signs: Vital Signs 02/20/18 11:35 02/20/18 18:00 02/20/18 19:55 Temperature 97.7 F 98 F Pulse Rate 93 H 98 H Respiratory Rate 18 18 Blood Pressure 167/91 H 150/76 H Pulse Oximetry 100 98 99 02/20/18 20:00 02/20/18 21:00 02/20/18 23:15 Temperature 98 F Pulse Rate 98 H 95 H 72 Respiratory Rate 18 Blood Pressure 150/76 H Pulse Oximetry 99 02/20/18 23:55 02/21/18 00:15 02/21/18 01:00 Temperature 98.3 F Pulse Rate 61 61 66 Respiratory Rate 18 Blood Pressure 102/55 L Pulse Oximetry 98 02/21/18 02:00 02/21/18 03:00 02/21/18 04:00 Temperature 98.1 F Pulse Rate 65 62 62 Respiratory Rate 18 Blood Pressure 105/56 L Pulse Oximetry 97 02/21/18 05:00 02/21/18 06:00 02/21/18 07:00 Temperature 97.6 F Pulse Rate 70 77 82 Respiratory Rate 18 Blood Pressure 141/72 H Pulse Oximetry 100 Intake & Output 02/20/18 02/21/18 02/21/18 18:59 06:59 18:59 Intake Total 480 / 480 Balance 480 / 480 Weight 112 lb 3.445 oz 110 lb 7.225 oz Intake: Oral 480 / 480 Other: # Voids 2 Date of Last Bowel Movement 02/19/18 # Bowel Movements 0 Weight On Admission 112 lb 3.445 oz Narrative: GENERAL: Well-developed well-nourished. In no acute distress. NECK: No carotid bruits. No JVD. CARDIOVASCULAR: Regular rate and rhythm. No murmur appreciated. RESPIRATORY: No accessory muscle use. Clear to auscultation. Breath sounds equal bilaterally. MUSCULOSKELETAL: No clubbing or cyanosis. No edema. NEUROLOGICAL: Awake and alert. Normal speech. Results 02/21/18 00:37 02/20/18 09:55 Coagulation 02/20/18 02/20/18 02/21/18 Range/Units 09:55 18:20 00:37 PT 10.3 (9.8-11.6) sec APTT 23.9 26.4 32.7 H D (23.4-31.7) sec CBC 02/20/18 02/21/18 Range/Units 09:55 00:37 WBC 7.0 7.1 (4.0-11.0) th/mm3 RBC 3.16 L 3.19 L (4.00-5.30) mil/mm3 Hgb 8.9 L 8.7 L (11.6-15.3) gm/dL Hct 26.9 L 27.1 L (35.0-46.0) % Plt Count 243 242 (150-450) th/mm3 Neut # (Auto) 4.8 4.5 (1.8-7.7) th/mm3 Lymph # (Auto) 1.5 1.8 (1.0-4.8) th/mm3 [place] # (Auto) 0.6 0.6 (0.0-0.9) th/mm3 Eos # (Auto) 0.1 0.1 (0.0-0.4) th/mm3 Baso # (Auto) 0.0 0.1 (0.0-0.2) th/mm3 Comprehensive Metabolic Panel 02/20/18 Range/Units 09:55 Sodium 142 (136-145) meq/L Potassium 4.3 (3.5-5.1) meq/L Chloride 108 H (98-107) meq/L Carbon Dioxide 26.9 (21.0-32.0) meq/L BUN 16 (7-18) mg/dL Creatinine 0.96 (0.50-1.00) mg/dL Calcium 8.6 (8.5-10.1) mg/dL Intake and Output 02/20/18 02/21/18 02/21/18 22:59 06:59 14:59 Intake Total 480 / 480 Balance 480 / 480 Intake: Oral 480 / 480 Other: # Voids 2 Date of Last Bowel Movement 02/19/18 # Bowel Movements 0 Weight 110 lb 7.225 oz - Imaging and Cardiology Imaging: Impressions Carotid Doppler Study 02/20/18 12:58 CONCLUSION: 1. Right Internal Carotid Artery: High-grade to critical stenosis internal carotid origin 2. Left Internal Carotid Artery: High-grade stenosis internal carotid origin 3. CT angiography could be used further evaluate Lower Extremity Ultrasound 02/20/18 12:58 CONCLUSION: 1. Venous mapping as described above. Thrombosis of calf vessels on the left Venous Doppler Study 02/20/18 12:58 CONCLUSION: 1. Negative for deep venous thrombosis Assessment and Plan - Plan 77 y/o female with CAD/hx of [place] in 11/2017, HTN, PAD, hyperlipidemia, and diabetes mellitus. She was previously hospitalized at [facility] in 11/2017 for NSTEMI. At that time she underwent LHC on 11/10/[address] Robert resulting in successful orbital rotational atherectomy and balloon angioplasty with endovascular stenting with bare metal stents to the left main, mid LAD, and diagonal branches. She was seen by cardiothoracic surgery at that time but was felt to be a poor surgical candidate for CABG secondary to carotid disease and porcelain aorta. She continued to have chest discomfort as outpatient. Assessment: CAD with repeat LHC on 02/20/18 which revealed severe left main and three- vessel [place] coronary artery disease with severe in-stent restenosis, low normal left ventricular systolic function with regional LAD territory mild hypokinesis, and normal to mildly elevated left-sided filling pressures. Carotid stenosis Plan: CT surgery consulted with tentative plans for CABG on 02/25, although may need to reconsider for earlier surgery date if continued angina. Resume aspirin daily Continue heparin gtt. Continue beta-hoda as tolerated Nitroglycerin gtt. as needed CTA of the carotids Discussed Condition With: Patient, Dr. Robert
[2018-02-21] MEDS: Isosorbide Mononitrate 60 MG ER 24HR Tablet (Imdur) PO SCH (08:49)
[2018-02-21] MEDS: Brimonidine 0.2% Opth Drops 5 ML Bottle EACH EYE SCH ×3 (08:49→18:02)
[2018-02-21] MEDS: Dorzolamide 2% Opth Drops 10 ML Bottle EACH EYE SCH ×3 (08:49→18:02)
[2018-02-21] MEDS: Metoprolol Tartrate 50 MG Tablet PO SCH ×2 (08:50→20:24)
[2018-02-21] MEDS: Pantoprazole Sodium 20 MG DR Tablet PO SCH (08:50)
[2018-02-21] MEDS: Lisinopril 10 MG Tablet PO SCH ×2 (08:50→20:24)
--- NOTE | 2018-02-21 11:28 | P.PNIM ---
Subjective Interval history: pt with cp overnight. minimal exertion. better on ntg gtt Physical Exam Vital signs: Last Vital Signs Temp 97.6 F 02/21/18 08:00 Pulse 68 02/21/18 10:00 Resp 18 02/21/18 08:00 BP 141/72 H 02/21/18 08:00 Pulse Ox 100 02/21/18 08:00 Narrative: heart reg lng cta abd /snt ext no edema Results Labs CBC & Chem 7: 02/21/18 00:37 02/20/18 09:55 Assessment and Plan Plan CAD with in-stent restenosis Chest pain with EKG changes - Pt is a 77 y/o female with CAD/hx of [place] in 11/2017, HTN, PAD, hyperlipidemia, and diabetes mellitus. She was previously hospitalized at [facility] in 11/2017 for NSTEMI. At that time she underwent LHC on 11/10/[address] Robert resulting in successful orbital rotational atherectomy and balloon angioplasty with endovascular stenting with bare metal stents to the left main, mid LAD, and diagonal branches. 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 She was switched from Plavix to Brilinta and ASA during that admission. Pt was followed as an outpt by Dr. Robert and continued to have intermittent chest pain. She has been on Imdur 120mg daily without relief. - Pt was brought to [facility] to undergo re-evaluation with cardiac catheterization as she had noted EKG changes on 02/19/[address] Fenton outpt notes, which noted ST-T depression anterolaterally in V4-V6 when compared to previous EKG from 01/01/2018. - Pt underwent LHC on 02/20/18 which revealed severe left main and three-vessel [place] coronary artery disease with severe in-stent restenosis, low normal left ventricular systolic function with regional LAD territory mild hypokinesis, and normal to mildly elevated left-sided filling pressures. - Pt has been placed on Heparin gtt and nitro gtt - Resume home doses of Imdur, Metoprolol, Simvastatin, Lisinopril, and Clonidine patch. Planned cabg x 4 on fri Incentive spirometer. to chair as tolerated HTN - Cont. home meds - Monitor Diabetes Mellitus, Hgb A1C 5.0 on 02/09/18 - Hold Metformin 500mg BID - NovoLog SSI - Accu checks Hyperlipidemia - Cont. home meds
[2018-02-21] MEDS ORDERED: Heparin 10,000 UNITS/10 ML Vial (for IV use) IV.PUSH PRN (11:36)
[2018-02-21] MEDS: Timolol 0.5% Drops 5 ML Bottle EACH EYE SCH (12:15)
[2018-02-21] MEDS: Heparin 10,000 UNITS/10 ML Vial (for IV use) IV.PUSH PRN (12:15)
--- NOTE | 2018-02-21 14:51 | ECG ---
Date Performed: 02/20/2018 Time Performed: 18:28:56 PTAGE: 77 years EKG: Sinus tachycardia. Poor intial anterior forces in V1and V2 Nonspecific ST-T changes with ST depression anterolaterally NO PREVIOUS TRACING DOCTOR: Shankar Bermudez Interpretating Date/Time 02/21/2018 14:51:14
--- NOTE | 2018-02-21 16:16 | XR ---
EXAM DATE: 02/21/2018 4:06 PM EST AGE/SEX: 77 years / Female INDICATIONS: Evaluate for pneumonia, pneumothorax, or communicable disease. Pre-operative for cardia c bypass graft. CLINICAL DATA: This is the patient's initial encounter. Patient reports that signs and symptoms have been present for 1 day and indicates a pain score of 0/10. MEDICAL/SURGICAL HISTORY: . Cardiovascular disease. Diabetes. Hypercholesterolemia. Hypertensio n. PAD/ PVD. Uterine cancer. Coronary artery stent. . COMPARISON: No prior exams available for comparison. FINDINGS: PA and lateral views of the chest demonstrate the lungs to be symmetrically aerated without evidence of mass, infiltrate or effusion. The cardiomediastinal contours are unremarkable. Coronary artery maggi nt. Osseous structures are intact. CONCLUSION: No acute cardiopulmonary disease. Electronically signed by: Keo Tan MD 02/21/2018 4:14 PM EST
[2018-02-21] MEDS: Heparin Drip 25,000 UNIT/250 ML BAG IV.CONT PRN (20:17)
[2018-02-22 04:13] LABS: Hematocrit 29.5 % (35.0-46.0); Hemoglobin 9.4 gm/dL (11.6-15.3); Mean Corpuscular HGB Conc 31.8 % (32.0-36.0); Mean Corpuscular Hemoglobin 26.9 pg (27.0-34.0); Mean Corpuscular Volume 84.7 fL (80.0-100.0); Mean Platelet Volume 9.4 fL (7.0-11.0); Platelet Count 221 th/mm3 (150-450); Red Blood Count 3.48 mil/mm3 (4.00-5.30); Red Cell Distribution Width 15.3 % (11.6-17.2); White Blood Count 6.3 th/mm3 (4.0-11.0)
[2018-02-22] MEDS: Insulin NovoLOG Aspart Correctional Sugar Inj SQ SCH ×4 (08:56→21:21)
[2018-02-22] MEDS: Metoprolol Tartrate 50 MG Tablet PO SCH ×2 (08:56→21:21)
[2018-02-22] MEDS: Pantoprazole Sodium 20 MG DR Tablet PO SCH (08:56)
[2018-02-22] MEDS: Isosorbide Mononitrate 60 MG ER 24HR Tablet (Imdur) PO SCH (08:57)
[2018-02-22] MEDS: Lisinopril 10 MG Tablet PO SCH ×2 (08:57→21:21)
--- NOTE | 2018-02-22 09:25 | P.PNIM ---
Subjective Interval history: pain improves with ntg no new complaints Physical Exam Vital signs: Last Vital Signs Temp 98.4 F 02/22/18 07:00 Pulse 61 02/22/18 08:00 Resp 16 02/22/18 07:00 BP 100/50 L 02/22/18 07:00 Pulse Ox 97 02/22/18 08:21 Narrative: heart reg lng cta abd /snt ext no edema Results Labs CBC & Chem 7: 02/22/18 03:31 02/20/18 09:55 Assessment and Plan Plan CAD with in-stent restenosis Chest pain with EKG changes - Pt is a 77 y/o female with CAD/hx of [place] in 11/2017, HTN, PAD, hyperlipidemia, and diabetes mellitus. She was previously hospitalized at [facility] in 11/2017 for NSTEMI. At that time she underwent LHC on 11/10/[address] Robert resulting in successful orbital rotational atherectomy and balloon angioplasty with endovascular stenting with bare metal stents to the left main, mid LAD, and diagonal branches. 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 She was switched from Plavix to Brilinta and ASA during that admission. Pt was followed as an outpt by Dr. Robert and continued to have intermittent chest pain. She has been on Imdur 120mg daily without relief. - Pt was brought to [facility] [place] to undergo re-evaluation with cardiac catheterization as she had noted EKG changes on 02/19/[address] Fenton outpt notes, which noted ST-T depression anterolaterally in V4-V6 when compared to previous EKG from 01/01/2018. - Pt underwent LHC on 02/20/18 which revealed severe left main and three-vessel [place] coronary artery disease with severe in-stent restenosis, low normal left ventricular systolic function with regional LAD territory mild hypokinesis, and normal to mildly elevated left-sided filling pressures. - Pt has been placed on Heparin gtt and nitro gtt - Resumed home doses of Imdur, Metoprolol, Simvastatin, Lisinopril, and Clonidine patch. Planned cabg x 4 on fri Incentive spirometer. to chair as tolerated HTN - Cont. home meds - Monitor Diabetes Mellitus, Hgb A1C 5.0 on 02/09/18 - Hold Metformin 500mg BID - NovoLog SSI - Accu checks Hyperlipidemia - Cont. home meds Progress Note: Quality VTE Deep Vein Thrombosis/Pulmonary Embolism Present on Admission: No
[2018-02-22] MEDS: Dorzolamide 2% Opth Drops 10 ML Bottle EACH EYE SCH ×3 (09:42→17:39)
[2018-02-22] MEDS: Timolol 0.5% Drops 5 ML Bottle EACH EYE SCH (09:42)
[2018-02-22] MEDS: Brimonidine 0.2% Opth Drops 5 ML Bottle EACH EYE SCH ×3 (09:42→17:38)
[2018-02-22] MEDS: Heparin 10,000 UNITS/10 ML Vial (for IV use) IV.PUSH PRN (13:24)
--- NOTE | 2018-02-22 14:53 | P.DIET ---
Nutritional Evaluation Type of nutrition evaluation: initial Nutrition consult regarding: Diet Evaluation Nutrition screening: Weight Loss > 10 lbs Objective - Diagnosis R07.9 (Chest Pain) - Objective Body Mass Index: 21.5 % IBW: 108 (IBW = 105lb) Body Weight Used for Calculations: Actual Energy Needs - Lower Range (kCal/kg): 25 Energy Needs - Upper Range (kCal/kg): 30 Lower Limit kCal/kg (kCals): 1,288 Upper Limit kCal/kg (kCals): 1,545 Lower Limit Protein Factor (Grams per Kg): 1.1 Upper Limit Protein Factor (Grams per Kg): 1.3 Lower Protein Needs (Protein): 57 Upper Protein Needs (Protein): 67 Dietitian Reviewed in Medical Record: Current diet, Curent medications, Intake & Output, Labs, Medical history Diet Order: Cardiac diet Oral Diet Intake Amount: Good 75-90% Speech Therapy Recommendations: No Objective Comments: PMH: CAD, DM, HLD, HTN, PAD, PVD, uterine cancer Meds: novolog insulin, lopressor Labs: POC glucose 195, 128, 203 Assessment Assessment: Pt currently at nutritional risk r/t reported unplanned wt loss. Pt has a good appetite, consuming 75% of most meals and tolerating well. Wts noted, CBW = 51.5kg. RD to recommend Ensure Enlive BID for PO supplement. Monitor PO and supplement intake. Labs reviewed, dietitian following. Recommendations: 1. RD to recommend Ensure Enlive BID for PO supplement 2. Monitor PO and supplement intake 3. Dietitian following Dietitian to Monitor: Lab values, Supplement acceptance, Intake & Output, Diet tolerance, PO Intake, Medical course
[2018-02-22] MEDS: Nitroglycerin Drip Premix 50 MG/250 ML BOTTLE IV.CONT PRN (21:46)
[2018-02-23 02:30] LABS: Hematocrit 23.7 % (35.0-46.0); Hemoglobin 7.6 gm/dL (11.6-15.3); Mean Corpuscular HGB Conc 32.1 % (32.0-36.0); Mean Corpuscular Hemoglobin 27.2 pg (27.0-34.0); Mean Corpuscular Volume 84.6 fL (80.0-100.0); Mean Platelet Volume 9.3 fL (7.0-11.0); Platelet Count 190 th/mm3 (150-450); Red Cell Distribution Width 15.2 % (11.6-17.2)
[2018-02-23] MEDS ORDERED: Morphine Sulfate Inj 2 MG/ML Vial IV.PUSH PRN (07:40)
[2018-02-23] MEDS: Isosorbide Mononitrate 60 MG ER 24HR Tablet (Imdur) PO SCH (08:25)
[2018-02-23] MEDS: Brimonidine 0.2% Opth Drops 5 ML Bottle EACH EYE SCH ×3 (08:26→17:19)
[2018-02-23] MEDS: Pantoprazole Sodium 20 MG DR Tablet PO SCH (08:26)
[2018-02-23] MEDS: Lisinopril 10 MG Tablet PO SCH (08:26)
[2018-02-23] MEDS: Metoprolol Tartrate 50 MG Tablet PO SCH ×2 (08:26→20:03)
[2018-02-23] MEDS: Timolol 0.5% Drops 5 ML Bottle EACH EYE SCH (08:26)
[2018-02-23] MEDS: Dorzolamide 2% Opth Drops 10 ML Bottle EACH EYE SCH ×3 (08:26→17:20)
--- NOTE | 2018-02-23 08:27 | P.PNCA ---
Subjective Interval history: Patient still with anginal chest pain radiating to her left shoulder and upper back. No abdominal, groin, leg pains. No edema or significant dyspnea. She is currently on heparin and nitroglycerine gtts and getting morphine for pain. Vitals are stable. Hgb has dropped since yesterday 9.4-->7.6 and no signs of bleeding. Medications and Allergies Active Medications: Active Medications Aspirin (Ecotrin) 81 mg PO DAILY [facility] Last Admin: 02/22/18 08:57 Dose: 81 mg Atropine Sulfate (Atropine Inj) 0.5 mg IV.PUSH UNSCH PRN PRN Reason: VAGAL REPONSE Brimonidine Tartrate (Alphagan 0.2% Opth Drops) 1 drops EACH EYE TID [facility] Last Admin: 02/22/18 17:38 Dose: 1 drops Chlorhexidine Gluconate (Hibiclens 4% Topical) 1 applicatio TOPICAL GOLF COURSE STARTER [facility] Stop: 02/26/18 12:58 Clonidine HCl (Catapress-Tts 0.2 Mg Patch.7d) 1 patch T-DERMAL WEEKLY [facility] Last Admin: 02/20/18 18:48 Dose: 1 patch Sodium Chloride 77.5 ml/Papaverine HCl 60 mg/Nitroglycerin 100 mcg/Diltiazem HCl 100 mg 0 ml IRRIGATION GOLF COURSE STARTER [facility] Stop: 02/26/18 12:58 Sodium Chloride 500 ml/ (Cefazolin Sodium 500 mg) 0 ml IRRIGATION GOLF COURSE STARTER [facility] Stop: 02/26/18 13:00 Dextrose (D50w Vial) 50 ml IV.PUSH UNSCH PRN PRN Reason: PER HYPOGLYCEMIA PROTOCOL Dorzolamide HCl (Trusopt 2% Opth Drops) 1 drop EACH EYE TID [facility] Last Admin: 02/22/18 17:39 Dose: 1 drop Glucagon (Glucagon Inj) 1 mg OTHER PRN PRN PRN Reason: for Hypoglycemia Protocol Heparin Sodium (Porcine) (Heparin Inj) 2,500 units IV.PUSH UNSCH PRN PRN Reason: aPPT 25-39 sec Last Admin: 02/22/18 13:24 Dose: 2,500 units Heparin Sodium (Porcine) (Heparin Inj) 5,000 units IV.PUSH UNSCH PRN PRN Reason: aPPT < 25 sec Heparin Sodium/Dextrose (Heparin/D5w 25,000 U/250 Ml) 25,000 unit in 250 mls @ 0 mls/hr IV.CONT TITRATE PRN; Protocol PRN Reason: Per Protocol Last Titration: 02/22/18 13:24 Dose: 700 units/hr, 7 mls/hr Cefazolin Sodium/Dextrose (Ancef 2 Gm Premix Inj) 2 gm in 50 mls @ 100 mls/hr IV.SIG GOLF COURSE STARTER [facility] Stop: 02/26/18 13:59 Nitroglycerin/Dextrose (Nitroglycerin Drip Premix) 50 mg in 250 mls @ 0 mls/hr IV.CONT TITRATE PRN; Protocol PRN Reason: Per Protocol Last Titration: 02/23/18 06:31 Dose: 75 mcg/min, 22.5 mls/hr Insulin Aspart (Novolog Insulin Correctional Sugar Inj) 0 unit SQ ACHS [facility]; Protocol Last Admin: 02/22/18 21:21 Dose: Not Given Isosorbide Mononitrate (Imdur) 120 mg PO DAILY [facility] Last Admin: 02/22/18 08:57 Dose: 120 mg Lisinopril (Prinivil) 10 mg PO BID [facility] Last Admin: 02/22/18 21:21 Dose: 10 mg Loratadine (Claritin) 10 mg PO DAILY PRN PRN Reason: ALLERGY SYMPTOMS Metoprolol Tartrate (Lopressor) 12.5 mg PO GOLF COURSE [facility] Stop: 02/26/18 13:00 Metoprolol Tartrate (Lopressor) 50 mg PO BID [facility] Last Admin: 02/22/18 21:21 Dose: 50 mg Morphine Sulfate (Morphine Inj) 1 mg IV.PUSH Q1H PRN PRN Reason: CHEST PAIN Last Admin: 02/23/18 08:13 Dose: 1 mg Oxycodone/Acetaminophen (Percocet 5/325 Mg) 1 tab PO Q4H PRN PRN Reason: PAIN SCALE 1 TO 4 Oxycodone/Acetaminophen (Percocet 5/325 Mg) 2 tab PO Q4H PRN PRN Reason: PAIN SCALE 5 TO 10 Last Admin: 02/23/18 03:52 Dose: 2 tab Pantoprazole Sodium (Protonix) 20 mg PO DAILY [facility] Last Admin: 02/22/18 08:56 Dose: 20 mg Patch Removal (Remove Old Patch) 1 each T-DERMAL WEEKLY [facility] Pravastatin Sodium (Pravachol) 80 mg PO DAILY@1800 [facility] Last Admin: 02/22/18 17:38 Dose: 80 mg Sodium Chloride (Ns Flush) 2 ml IV.FLUSH BID [facility] Last Admin: 02/22/18 21:21 Dose: Not Given Sodium Chloride (Ns Flush) 2 ml IV.FLUSH PRN PRN PRN Reason: FLUSH AFTER USING IV ACCESS Timolol Maleate (Timoptic 0.5% Drops) 1 drops EACH EYE DAILY [facility] Last Admin: 02/22/18 09:42 Dose: 1 drops Allergies Allergy/AdvReac Type Severity Reaction Status Date / Time No Known Allergies Allergy Verified 02/21/18 10:53 Home Medications Medication Instructions Recorded Confirmed Type albuterol sulfate [Ventolin HFA] 2 puff INHALATION Q4-6H PRN 02/20/18 02/20/18 History aspirin [Aspirin Low Dose] 81 mg PO DAILY 02/20/18 02/20/18 History brimonidine 1 drp OPHTHALMIC (EYE) TID 02/20/18 02/20/18 History clonidine 1 patch TRANSDERMAL QWEEK 02/20/18 02/20/18 History dorzolamide 1 drp OPHTHALMIC (EYE) TID 02/20/18 02/20/18 History ferrous sulfate, dried [Slow 160 mg PO DAILY 02/20/18 02/20/18 History Release Iron] isosorbide mononitrate 120 mg PO DAILY 02/20/18 02/20/18 History lisinopril 20 mg PO DAILY 02/20/18 02/20/18 History loratadine [Claritin] 10 mg PO DAILY PRN 02/20/18 02/20/18 History metformin 500 mg PO BID 02/20/18 02/20/18 History metoprolol tartrate 50 mg PO BID 02/20/18 02/20/18 History nitroglycerin 0.4 mg SUBLINGUAL Q5-15M PRN 02/20/18 02/20/18 History pantoprazole 20 mg PO DAILY 02/20/18 02/20/18 History simvastatin 40 mg PO QPM 02/20/18 02/20/18 History timolol 1 drop EACH EYE DAILY 02/20/18 02/20/18 History Physical Exam Vital signs: Vital Signs 02/22/18 08:21 02/22/18 09:00 02/22/18 10:00 Temperature Pulse Rate 64 63 Respiratory Rate Blood Pressure Pulse Oximetry 97 02/22/18 11:00 02/22/18 12:00 02/22/18 13:00 Temperature 98.6 F Pulse Rate 61 63 63 Respiratory Rate 18 Blood Pressure 139/63 Pulse Oximetry 98 02/22/18 14:00 02/22/18 15:00 02/22/18 16:00 Temperature 98.5 F Pulse Rate 77 78 82 Respiratory Rate 18 Blood Pressure 104/56 L Pulse Oximetry 98 02/22/18 17:00 02/22/18 18:00 02/22/18 19:00 Temperature 99.1 F Pulse Rate 98 H 88 96 H Respiratory Rate 16 Blood Pressure 111/55 L Pulse Oximetry 96 02/22/18 20:00 02/22/18 21:00 02/22/18 22:00 Temperature Pulse Rate 92 H 104 H 88 Respiratory Rate Blood Pressure Pulse Oximetry 02/22/18 23:00 02/23/18 00:00 02/23/18 01:00 Temperature 99.4 F Pulse Rate 63 82 62 Respiratory Rate 14 Blood Pressure 104/53 L Pulse Oximetry 96 02/23/18 02:00 02/23/18 03:00 02/23/18 04:00 Temperature 97.8 F Pulse Rate 66 65 84 Respiratory Rate 16 Blood Pressure 102/53 L Pulse Oximetry 99 02/23/18 05:00 02/23/18 06:00 02/23/18 07:00 Temperature Pulse Rate 68 108 H 90 Respiratory Rate Blood Pressure Pulse Oximetry Intake & Output 02/22/18 02/23/18 02/23/18 18:59 06:59 18:59 Intake Total 975 / 975 710 / 710 Output Total 575 / 575 450 / 450 Balance 400 / 400 260 / 260 Weight 51 kg Intake: IV 230 / 230 Nitroglycerin Drip Premix 50 mg 230 / 230 In 250 ml @ Per Protocol IV. CONT TITRATE PRN Rx#:[id number] Oral 975 / 975 480 / 480 Output: Urine 575 / 575 450 / 450 Other: Date of Last Bowel Movement 02/21/18 02/21/18 # Bowel Movements 0 Narrative: GENERAL: Well-developed well-nourished. In no acute distress. NECK: No carotid bruits. No JVD. CARDIOVASCULAR: Regular rate and rhythm. No murmur appreciated. RESPIRATORY: No accessory muscle use. Clear to auscultation. Breath sounds equal bilaterally. MUSCULOSKELETAL: No clubbing or cyanosis. No edema. NEUROLOGICAL: Awake and alert. Normal speech. Results 02/23/18 01:45 02/20/18 09:55 Coagulation 02/21/18 02/21/18 02/21/18 Range/Units 08:56 18:08 23:51 APTT 37.8 H 53.9 H D 69.6 H D (23.4-31.7) sec 02/22/18 02/22/18 02/22/18 Range/Units 03:31 05:31 12:06 APTT 91.0 H* D 76.7 H 35.0 H D (23.4-31.7) sec 02/22/18 02/23/18 Range/Units 19:22 01:45 APTT 47.4 H D 39.8 H (23.4-31.7) sec CBC 02/22/18 02/23/18 Range/Units 03:31 01:45 WBC 6.3 5.0 (4.0-11.0) th/mm3 RBC 3.48 L 2.80 L (4.00-5.30) mil/mm3 Hgb 9.4 L 7.6 L (11.6-15.3) gm/dL Hct 29.5 L 23.7 L (35.0-46.0) % Plt Count 221 190 (150-450) th/mm3 Intake and Output 02/22/18 02/23/18 02/23/18 22:59 06:59 14:59 Intake Total 1205 / 1205 480 / 480 Output Total 575 / 575 450 / 450 Balance 630 / 630 30 / 30 Intake: IV 230 / 230 Nitroglycerin Drip Premix 50 mg 230 / 230 In 250 ml @ Per Protocol IV. CONT TITRATE PRN Rx#:[id number] Oral 975 / 975 480 / 480 Output: Urine 575 / 575 450 / 450 Other: Date of Last Bowel Movement 02/21/18 02/21/18 # Bowel Movements 0 Weight 51 kg - Imaging and Cardiology Imaging: Impressions Chest X-Ray 02/21/18 12:58 CONCLUSION: No acute cardiopulmonary disease. Assessment and Plan - Plan 77 y/o female with CAD/hx of [place] in 11/2017, HTN, PAD, hyperlipidemia, and diabetes mellitus. She was previously hospitalized at [facility] in 11/2017 for NSTEMI. At that time she underwent LHC on 11/10/[address] Robert resulting in successful orbital rotational atherectomy and balloon angioplasty with endovascular stenting with bare metal stents to the left main, mid LAD, and diagonal branches. She was seen by cardiothoracic surgery at that time but was felt to be a poor surgical candidate for CABG secondary to carotid disease and porcelain aorta. She continues to have chest discomfort as inpatient. Assessment: CAD with repeat LHC on 02/20/18 which revealed severe left main and three- vessel tribal coronary artery disease with severe in-stent restenosis, low normal left ventricular systolic function with regional LAD territory mild hypokinesis, and normal to mildly elevated left-sided filling pressures. Carotid stenosis Plan: CT surgery consulted with tentative plans for CABG on 02/25, holding for now as she was on Brilinta, although may need to reconsider for earlier surgery date if continued angina. Continue aspirin daily Continue heparin gtt. Continue beta-hoda as tolerated Nitroglycerin gtt Provide 2 units of RBC transfusion Discussed current anginal with Dr Avila who will see patient again today.
[2018-02-23] MEDS: Insulin NovoLOG Aspart Correctional Sugar Inj SQ SCH ×4 (08:34→20:04)
[2018-02-23] MEDS: Heparin Drip 25,000 UNIT/250 ML BAG IV.CONT PRN (10:21)
[2018-02-23 10:30] LABS: Calcium 8.2 mg/dL (8.5-10.1); Carbon Dioxide 28.3 meq/L (21.0-32.0); Potassium 4.2 meq/L (3.5-5.1)
--- NOTE | 2018-02-23 11:30 | P.PNCV ---
- Note Subjective/Hospital Course: 77-year-old patient of Dr. Baldomero Robert; also Kain Tinajero, Primary Care; who was electively admitted for a cardiac catheterization complaining of intermittent chest pain, midsternal heaviness radiating across her chest, mainly occurs at night. She has a significant history of coronary artery disease. She has been maximized on medication to include Imdur extended release 120 daily, Brilinta and aspirin; also has chronic claudication of her lower extremities, mainly the left leg. She was recently hospitalized for a non -STEMI in November 2017, where she underwent heart catheterization, placement of an Impella device. She had an orbital rotational atherectomy of the left main coronary artery, also a PCI endovascular stenting with bare metal stents the left main, mid left, anterior descending and diagonal branches. Despite maximizing medications the patient has had continued angina; underwent catheterization today, which showed an ejection fraction of 50%, left main disease of 90% proximal LAD, 90%, the mid distal LAD 30%. The diagonal was 90%, the circumflex was 20%, the RCA 90% and the ramus 75%. We were consulted to evaluate for coronary artery bypass grafting. PAST MEDICAL HISTORY: Includes peripheral arterial disease, hypertension, coronary artery disease, hyperlipidemia, chronic anemia, chronic kidney disease stage III, diabetes mellitus with neuropathy, hypertension, hyperlipidemia, lumbar radiculopathy. PAST SURGICAL HISTORY: Includes recent bare-metal stent placement and November 2017, bilateral cataract surgery. She has had an atherectomy of the left leg for SFA occlusion; EGD where they found nonbleeding ulcer some gastritis, 02/23 pt developed chest pain last pm, was started on NTG gtt, pain is now resolved CTA neck pending this am carotid US : 1. Right Internal Carotid Artery: High-grade to critical stenosis internal carotid origin , 2. Left Internal Carotid Artery: High-grade stenosis internal carotid origin venous mapping : minimal conduits lower ext , upper thigh only scheduled for surgery on Friday Objective: Vital Signs - 24 hr 02/22/18 12:00 02/22/18 13:00 02/22/18 14:00 Temperature Pulse Rate 63 63 77 Respiratory Rate Blood Pressure Pulse Oximetry 02/22/18 15:00 02/22/18 16:00 02/22/18 17:00 Temperature 98.5 F Pulse Rate 78 82 98 H Respiratory Rate 18 Blood Pressure 104/56 L Pulse Oximetry 98 02/22/18 18:00 02/22/18 19:00 02/22/18 20:00 Temperature 99.1 F Pulse Rate 88 96 H 92 H Respiratory Rate 16 Blood Pressure 111/55 L Pulse Oximetry 96 02/22/18 21:00 02/22/18 22:00 02/22/18 23:00 Temperature 99.4 F Pulse Rate 104 H 88 63 Respiratory Rate 14 Blood Pressure 104/53 L Pulse Oximetry 96 02/23/18 00:00 02/23/18 01:00 02/23/18 02:00 Temperature Pulse Rate 82 62 66 Respiratory Rate Blood Pressure Pulse Oximetry 02/23/18 03:00 02/23/18 04:00 02/23/18 05:00 Temperature 97.8 F Pulse Rate 65 84 68 Respiratory Rate 16 Blood Pressure 102/53 L Pulse Oximetry 99 02/23/18 06:00 02/23/18 07:00 Temperature 97.7 F Pulse Rate 108 H 99 H Respiratory Rate 18 Blood Pressure 149/69 H Pulse Oximetry 98 GENERAL: SKIN: Warm and dry. HEAD: Normocephalic. EYES: No scleral icterus. No injection or drainage. NECK: Supple, trachea midline. No JVD or lymphadenopathy. CARDIOVASCULAR: Regular rate and rhythm without murmurs, gallops, or rubs. RESPIRATORY: Breath sounds equal bilaterally. No accessory muscle use. GASTROINTESTINAL: Abdomen soft, non-tender, nondistended. MUSCULOSKELETAL: No cyanosis, or edema. BACK: Nontender without obvious deformity. No CVA tenderness. Labs: Laboratory Results - last 12 hr 02/23/18 02/23/18 02/23/18 01:45 01:45 08:07 WBC 5.0 RBC 2.80 L Hgb 7.6 L Hct 23.7 L MCV 84.6 MCH 27.2 MCHC 32.1 RDW 15.2 Plt Count 190 MPV 9.3 APTT 39.8 H 37.0 H Plt Funct P2Y12 Units Sodium Potassium Chloride Carbon Dioxide Anion Gap BUN Creatinine Estimated GFR POC Glucose Random Glucose Calcium 02/23/18 02/23/18 02/23/18 08:07 08:33 08:42 WBC RBC Hgb Hct MCV MCH MCHC RDW Plt Count MPV APTT Plt Funct P2Y12 Units 278 Sodium 139 Potassium 4.2 Chloride 103 Carbon Dioxide 28.3 Anion Gap 8 BUN 19 H Creatinine 0.91 Estimated GFR 60 L POC Glucose 117 H Random Glucose 111 H Calcium 8.2 L Result Diagrams: 02/23/18 01:45 02/23/18 08:42 Telemetry: NSR Neuro/ Psych: CV: CAD/ muli vessel disease on NtG , ASA, statin , BB / hold SHRADDHA for surgery for CTA neck today Resp: on Nasal cannula / o2 to keep sat > 92% GI: gi motility meds : Endo: Renal: creatinine stable Heme: hx of normocytic anemia for 2 units PRBC with diuresis ID: FEN: MSK: Access: PIV Prophylaxis: protonix
[2018-02-23] MEDS: Docusate Sodium 100 MG Capsule PO SCH ×2 (13:19→20:03)
--- NOTE | 2018-02-23 17:13 | ECG ---
Date Performed: 02/23/2018 Time Performed: 06:52:58 PTAGE: 77 years EKG: Sinus rhythm . Inferior/lateral ST-T changes Abnormal ECG Since the PREVIOUS TRACING , no significant change noted DOCTOR: Naresh Johansen Interpretating Date/Time 02/23/2018 17:12:35
--- NOTE | 2018-02-23 17:15 | ECG ---
Date Performed: 02/23/2018 Time Performed: 06:23:00 PTAGE: 77 years EKG: Sinus tachycardia. Poor R wave progression - probable normal variant Inferior/lateral ST-T changes Abnormal ECG Since the PREVIOUS TRACING , no significant change noted DOCTOR: Naresh Johansen Interpretating Date/Time 02/23/2018 17:13:29
--- NOTE | 2018-02-23 18:01 | P.PNIM ---
Subjective Interval history: pt had more pain overnight. ntg titrated. Physical Exam Vital signs: Last Vital Signs Temp 100.3 F H 02/23/18 17:48 Pulse 88 02/23/18 17:48 Resp 18 02/23/18 17:48 BP 148/67 H 02/23/18 17:48 Pulse Ox 98 02/23/18 17:48 Narrative: heart reg lng cta abd /snt ext no edema Results Labs CBC & Chem 7: 02/23/18 01:45 02/23/18 08:42 Assessment and Plan Assessment (1) PAD (peripheral artery disease): Code(s): I73.9 - Peripheral vascular disease, unspecified Status: Acute (2) Carotid stenosis, bilateral: Code(s): I65.23 - Occlusion and stenosis of bilateral carotid arteries Status: Acute (3) CAD (coronary artery disease): Code(s): I25.10 - Atherosclerotic heart disease of [place] coronary artery without angina pectoris Status: Chronic (4) Diabetes mellitus: Code(s): E11.9 - Type 2 diabetes mellitus without complications Status: Chronic (5) HTN (hypertension): Code(s): I10 - Essential (primary) hypertension Status: Chronic (6) Hyperlipidemia: Code(s): E78.5 - Hyperlipidemia, unspecified Status: Chronic (7) Normocytic anemia: Code(s): D64.9 - Anemia, unspecified Status: Acute Plan CAD with in-stent restenosis Chest pain with EKG changes - Pt is a 77 y/o female with CAD/hx of [place] in 11/2017, HTN, PAD, hyperlipidemia, and diabetes mellitus. She was previously hospitalized at [facility] in 11/2017 for NSTEMI. At that time she underwent LHC on 11/10/[address] Robert resulting in successful orbital rotational atherectomy and balloon angioplasty with endovascular stenting with bare metal stents to the left main, mid LAD, and diagonal branches. 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 She was switched from Plavix to Brilinta and ASA during that admission. Pt was followed as an outpt by Dr. Robert and continued to have intermittent chest pain. She has been on Imdur 120mg daily without relief. - [place] [facility] [place] re-evaluation with cardiac catheterization as she had noted EKG changes on 02/19/[address] Fenton outpt notes, which noted ST-T depression anterolaterally in V4-V6 when compared to previous EKG from 01/01/2018. - Pt underwent LHC on 02/20/18 which revealed severe left main and three-vessel [place] coronary artery disease with severe in-stent restenosis, low normal left ventricular systolic function with regional LAD territory mild hypokinesis, and normal to mildly elevated left-sided filling pressures. - Pt has been placed on Heparin gtt and nitro gtt - Resumed home doses of Imdur, Metoprolol, Simvastatin, Lisinopril, and Clonidine patch. Planned cabg x 4 on fri Incentive spirometer. 2 units prbc today on 02/23 for hgb 7.6 with ongoing cp. HTN - Cont. home meds - Monitor Diabetes Mellitus, Hgb A1C 5.0 on 02/09/18 - Hold Metformin 500mg BID - NovoLog SSI - Accu checks Hyperlipidemia - Cont. home meds Progress Note: Quality VTE Deep Vein Thrombosis/Pulmonary Embolism Present on Admission: No _ (1) CAD (coronary artery disease) Qualifiers: Coronary Disease-Associated Artery/Lesion type: [place] vs. transplanted heart: Associated angina: (2) Diabetes mellitus Qualifiers: Diabetes mellitus type: Diabetes mellitus senior care insulin use: Diabetes mellitus complication status: Diabetes mellitus complication detail: Diabetic retinopathy severity: Proliferative retinopathy type: Diabetes mellitus macular edema: Laterality: Chronic kidney disease stage: (3) HTN (hypertension) Qualifiers: Hypertension type: (4) Hyperlipidemia Qualifiers: Hyperlipidemia type:
--- NOTE | 2018-02-23 22:10 | CT ---
EXAM DATE: 02/23/2018 10:00 PM EST AGE/SEX: 77 years / Female INDICATIONS: Occlusion. CLINICAL DATA: This is the patient's initial encounter. Patient reports that signs and symptoms have been present for 1 day and indicates a pain score of 0/10. MEDICAL/SURGICAL HISTORY: Diabetes. Hypertension. Glaucoma Coronary artery stent. RADIATION DOSE: 9.44 CTDI (mGy) COMPARISON: No prior exams available for comparison. TECHNIQUE: Volumetric scanning was performed using a multirow detector CT scanner during bolus infus ion of 75 ml Visipaque 320 (iodixanol) nonionic water-soluble contrast as a single exam dose. The data was postprocessed with a variety of visualization algorithms including full-volume maximum inten sity projection, multiplanar sliding thin-slab reformation, curved-planar reformation, and surface-re ndering techniques. Using automated exposure control and adjustment of the mA and/or kV according to patient size, radiation dose was kept as low as reasonably achievable to obtain optimal diagnostic q uality images. DICOM format image data is available electronically for review and comparison. FINDINGS: Aortic Arch: There is a three-vessel origin of the great vessels from the aorta. No evidence of ost ial narrowing Right Carotid: The common carotid artery is intact. There is a focal stenosis at the proximal inter nal carotid artery with the lumen narrowed by approximately 60%. The external carotid artery is int act. Left Carotid: The common carotid artery is intact. There is a focal stenosis of the proximal technology intern al carotid artery with the lumen narrowed by approximately 50%. The external carotid artery is inta ct. Vertebrals: The vertebral arteries have a symmetric diameter. No stenotic lesions are seen. Percent stenosis is calculated using the diameter of the stenotic region over the diameter of the nor mal distal internal carotid artery. CONCLUSION: Focal stenoses at the proximal internal carotid arteries bilaterally being worse on the right. It shay ears the right stenosis is approximately 60% and the left stenosis of approximately 50%. Electronically signed by: Danny Ruiz MD 02/23/2018 10:08 PM EST
[2018-02-24 02:23] LABS: Baso % (Auto) 0.5 % (0.0-2.0); Eos # (Auto) 0.2 th/mm3 (0.0-0.4); Eos % (Auto) 3.1 % (0.0-4.0); Hematocrit 36.5 % (35.0-46.0); Hemoglobin 12.2 gm/dL (11.6-15.3); Lymph # (Auto) 1.4 th/mm3 (1.0-4.8); Lymph % (Auto) 23.1 % (9.0-44.0); Mean Corpuscular HGB Conc 33.4 % (32.0-36.0); Mean Corpuscular Hemoglobin 28.4 pg (27.0-34.0); Mean Platelet Volume 9.1 fL (7.0-11.0); Mono # (Auto) 0.6 th/mm3 (0.0-0.9); Mono % (Auto) 9.4 % (0.0-8.0); Neut % (Auto) 63.9 % (16.0-70.0); Platelet Count 180 th/mm3 (150-450); Red Blood Count 4.29 mil/mm3 (4.00-5.30); Red Cell Distribution Width 15.5 % (11.6-17.2); White Blood Count 6.2 th/mm3 (4.0-11.0)
[2018-02-24 02:36] LABS: Activated Partial Thrombo Time 40.9 sec (23.4-31.7)
[2018-02-24 02:43] LABS: Alanine Aminotransferase 14 U/L (10-53); Albumin 3.2 g/dL (3.4-5.0); Anion Gap 8 meq/L (5-15); Aspartate Aminotransferase 16 U/L (15-37); Blood Urea Nitrogen 18 mg/dL (7-18); Calcium 8.9 mg/dL (8.5-10.1); Carbon Dioxide 31.8 meq/L (21.0-32.0); Chloride 99 meq/L (98-107); Glomerular Filtration Rate 54 mL/min (>89); Glucose,Random 123 mg/dL (74-106); Potassium 3.5 meq/L (3.5-5.1); Sodium 139 meq/L (136-145)
[2018-02-24 02:46] LABS: Alkaline Phosphatase 78 U/L (45-117); Total Protein 7.3 g/dL (6.4-8.2)
--- NOTE | 2018-02-24 07:40 | P.PNCA ---
Subjective Interval history: Family at bedside. No complaints today. Patient reports no chest pain yesterday or overnight. She received 2 units PRBCs with improvement in hemoglobin. Denies any bleeding signs or symptoms. Telemetry no significant arrhythmia overnight. Medications and Allergies Allergies Allergy/AdvReac Type Severity Reaction Status Date / Time No Known Allergies Allergy Verified 02/21/18 10:53 Home Medications Medication Instructions Recorded Confirmed Type albuterol sulfate [Ventolin HFA] 2 puff INHALATION Q4-6H PRN 02/20/18 02/20/18 History aspirin [Aspirin Low Dose] 81 mg PO DAILY 02/20/18 02/20/18 History brimonidine 1 drp OPHTHALMIC (EYE) TID 02/20/18 02/20/18 History clonidine 1 patch TRANSDERMAL QWEEK 02/20/18 02/20/18 History dorzolamide 1 drp OPHTHALMIC (EYE) TID 02/20/18 02/20/18 History ferrous sulfate, dried [Slow 160 mg PO DAILY 02/20/18 02/20/18 History Release Iron] isosorbide mononitrate 120 mg PO DAILY 02/20/18 02/20/18 History lisinopril 20 mg PO DAILY 02/20/18 02/20/18 History loratadine [Claritin] 10 mg PO DAILY PRN 02/20/18 02/20/18 History metformin 500 mg PO BID 02/20/18 02/20/18 History metoprolol tartrate 50 mg PO BID 02/20/18 02/20/18 History nitroglycerin 0.4 mg SUBLINGUAL Q5-15M PRN 02/20/18 02/20/18 History pantoprazole 20 mg PO DAILY 02/20/18 02/20/18 History simvastatin 40 mg PO QPM 02/20/18 02/20/18 History timolol 1 drop EACH EYE DAILY 02/20/18 02/20/18 History Active Medications: Active Medications Al Hydroxide/Mg Hydroxide (Milk Of Magnkatia Liq) 30 ml PO DAILY PRN PRN Reason: CONSTIPATION Aspirin (Ecotrin) 81 mg PO DAILY [facility] Last Admin: 02/23/18 08:25 Dose: 81 mg Atropine Sulfate (Atropine Inj) 0.5 mg IV.PUSH UNSCH PRN PRN Reason: VAGAL REPONSE Brimonidine Tartrate (Alphagan 0.2% Opth Drops) 1 drops EACH EYE TID [facility] Last Admin: 02/23/18 17:19 Dose: 1 drops Chlorhexidine Gluconate (Hibiclens 4% Topical) 1 applicatio [employer]ICAL [employer]IST [facility] Stop: 02/26/18 12:58 Clonidine HCl (Catapress-Tts 0.2 Mg Patch.7d) 1 patch T-DERMAL WEEKLY [facility] Last Admin: 02/20/18 18:48 Dose: 1 patch Sodium Chloride 77.5 ml/Papaverine HCl 60 mg/Nitroglycerin 100 mcg/Diltiazem HCl 100 mg 0 ml IRRIGATION [employer]IST [facility] Stop: 02/26/18 12:58 Sodium Chloride 500 ml/ (Cefazolin Sodium 500 mg) 0 ml IRRIGATION [employer]IST [facility] Stop: 02/26/18 13:00 Dextrose (D50w Vial) 50 ml IV.PUSH UNSCH PRN PRN Reason: PER HYPOGLYCEMIA PROTOCOL Docusate Sodium (Colace) 100 mg PO BID [facility] Last Admin: 02/23/18 20:03 Dose: 100 mg Dorzolamide HCl (Trusopt 2% Opth Drops) 1 drop EACH EYE TID [facility] Last Admin: 02/23/18 17:20 Dose: 1 drop Glucagon (Glucagon Inj) 1 mg OTHER PRN PRN PRN Reason: for Hypoglycemia Protocol Heparin Sodium (Porcine) (Heparin Inj) 2,500 units IV.PUSH UNSCH PRN PRN Reason: aPPT 25-39 sec Last Admin: 02/22/18 13:24 Dose: 2,500 units Heparin Sodium (Porcine) (Heparin Inj) 5,000 units IV.PUSH UNSCH PRN PRN Reason: aPPT < 25 sec Heparin Sodium/Dextrose (Heparin/D5w 25,000 U/250 Ml) 25,000 unit in 250 mls @ 0 mls/hr IV.CONT TITRATE PRN; Protocol PRN Reason: Per Protocol Last Admin: 02/23/18 10:21 Dose: 800 units/hr, 8 mls/hr Cefazolin Sodium/Dextrose (Ancef 2 Gm Premix Inj) 2 gm in 50 mls @ 100 mls/hr IV.SIG [facility] [employer] [facility] Stop: 02/26/18 13:59 Nitroglycerin/Dextrose (Nitroglycerin Drip Premix) 50 mg in 250 mls @ 0 mls/hr IV.CONT TITRATE PRN; Protocol PRN Reason: Per Protocol Last Titration: 02/23/18 06:31 Dose: 75 mcg/min, 22.5 mls/hr Insulin Aspart (Novolog Insulin Correctional Sugar Inj) 0 unit SQ [facility]; Protocol Last Admin: 02/23/18 20:04 Dose: Not Given Isosorbide Mononitrate (Imdur) 120 mg PO DAILY [facility] Last Admin: 02/23/18 08:25 Dose: 120 mg Lisinopril (Prinivil) 10 mg PO BID [facility] Last Admin: 02/23/18 08:26 Dose: 10 mg Loratadine (Claritin) 10 mg PO DAILY PRN PRN Reason: ALLERGY SYMPTOMS Metoprolol Tartrate (Lopressor) 12.5 mg PO [employer] [employer] [facility] Stop: 02/26/18 13:00 Metoprolol Tartrate (Lopressor) 50 mg PO BID [facility] Last Admin: 02/23/18 20:03 Dose: 50 mg Morphine Sulfate (Morphine Inj) 1 mg IV.PUSH Q1H PRN PRN Reason: CHEST PAIN Last Admin: 02/23/18 08:13 Dose: 1 mg Oxycodone/Acetaminophen (Percocet 5/325 Mg) 1 tab PO Q4H PRN PRN Reason: PAIN SCALE 1 TO 4 Oxycodone/Acetaminophen (Percocet 5/325 Mg) 2 tab PO Q4H PRN PRN Reason: PAIN SCALE 5 TO 10 Last Admin: 02/23/18 03:52 Dose: 2 tab Pantoprazole Sodium (Protonix) 20 mg PO DAILY [facility] Last Admin: 02/23/18 08:26 Dose: 20 mg Patch Removal (Remove Old Patch) 1 each T-DERMAL WEEKLY [facility] Pravastatin Sodium (Pravachol) 80 mg PO DAILY@1800 [facility] Last Admin: 02/23/18 20:03 Dose: 80 mg Sodium Chloride (Ns Flush) 2 ml IV.FLUSH BID [facility] Last Admin: 02/23/18 20:04 Dose: 2 ml Sodium Chloride (Ns Flush) 2 ml IV.FLUSH PRN PRN PRN Reason: FLUSH AFTER USING IV ACCESS Timolol Maleate (Timoptic 0.5% Drops) 1 drops EACH EYE DAILY [facility] Last Admin: 02/23/18 08:26 Dose: 1 drops Physical Exam Vital signs: Vital Signs 02/23/18 08:00 02/23/18 09:00 02/23/18 10:00 Temperature Pulse Rate 96 H 74 78 Respiratory Rate Blood Pressure Pulse Oximetry 02/23/18 11:00 02/23/18 12:00 02/23/18 13:00 Temperature 97.7 F Pulse Rate 67 66 72 Respiratory Rate 18 Blood Pressure 87/57 L Pulse Oximetry 96 02/23/18 14:00 02/23/18 15:00 02/23/18 15:03 Temperature 98.9 F 99.8 F H Pulse Rate 84 85 91 H Respiratory Rate 18 18 Blood Pressure 131/63 121/61 Pulse Oximetry 98 96 02/23/18 15:16 02/23/18 16:00 02/23/18 17:00 Temperature 98.9 F Pulse Rate 83 80 84 Respiratory Rate 18 Blood Pressure 131/63 Pulse Oximetry 98 02/23/18 17:48 02/23/18 18:00 02/23/18 19:00 Temperature 100.3 F H 99.0 F Pulse Rate 88 82 87 Respiratory Rate 18 16 Blood Pressure 148/67 H 155/74 H Pulse Oximetry 98 95 02/23/18 20:00 02/23/18 21:00 02/23/18 22:00 Temperature Pulse Rate 96 H 92 H 72 Respiratory Rate Blood Pressure Pulse Oximetry 02/23/18 23:00 02/24/18 00:00 02/24/18 01:00 Temperature 98.9 F Pulse Rate 71 70 68 Respiratory Rate 14 Blood Pressure 134/62 Pulse Oximetry 100 02/24/18 02:00 02/24/18 03:00 02/24/18 04:00 Temperature 98.1 F Pulse Rate 70 75 76 Respiratory Rate 18 Blood Pressure 116/81 Pulse Oximetry 99 02/24/18 05:00 02/24/18 06:00 Temperature Pulse Rate 72 81 Respiratory Rate Blood Pressure Pulse Oximetry Intake & Output 02/23/18 02/24/18 02/24/18 18:59 06:59 18:59 Intake Total 400 / 400 240 / 240 Output Total 1200 / 1200 Balance 400 / 400 -960 / -960 Weight 109 lb 2.061 oz Intake: Oral 240 / 240 Intake (Blood Product) Amt 400 / 400 Rbc As-3 Leukoreduced Unit 400 / 400 [id number] Rbc As-3 Leukoreduced Unit 0 / 0 [id number] Output: Urine 1200 / 1200 Other: Date of Last Bowel Movement 02/21/18 Narrative: GENERAL: Well-developed well-nourished. In no acute distress. NECK: No carotid bruits. No JVD. CARDIOVASCULAR: Regular rate and rhythm. No murmur appreciated. RESPIRATORY: No accessory muscle use. Clear to auscultation. Breath sounds equal bilaterally. MUSCULOSKELETAL: No clubbing or cyanosis. No edema. NEUROLOGICAL: Awake and alert. Normal speech. Results 02/24/18 02:12 02/24/18 02:12 Cardiac Enzymes 02/24/18 Range/Units 02:12 AST 16 (15-37) U/L Coagulation 02/22/18 02/22/18 02/23/18 Range/Units 12:06 19:22 01:45 PT (9.8-11.6) sec APTT 35.0 H D 47.4 H D 39.8 H (23.4-31.7) sec 02/23/18 02/23/18 02/24/18 Range/Units 08:07 19:56 02:12 PT 10.0 (9.8-11.6) sec APTT 37.0 H 40.4 H 40.9 H (23.4-31.7) sec CBC 02/23/18 02/24/18 Range/Units 01:45 02:12 WBC 5.0 6.2 (4.0-11.0) th/mm3 RBC 2.80 L 4.29 (4.00-5.30) mil/mm3 Hgb 7.6 L 12.2 D (11.6-15.3) gm/dL Hct 23.7 L 36.5 (35.0-46.0) % Plt Count 190 180 (150-450) th/mm3 Neut # (Auto) 4.0 (1.8-7.7) th/mm3 Lymph # (Auto) 1.4 (1.0-4.8) th/mm3 [place] # (Auto) 0.6 (0.0-0.9) th/mm3 Eos # (Auto) 0.2 (0.0-0.4) th/mm3 Baso # (Auto) 0.0 (0.0-0.2) th/mm3 Comprehensive Metabolic Panel 02/23/18 02/24/18 Range/Units 08:42 02:12 Sodium 139 139 (136-145) meq/L Potassium 4.2 3.5 (3.5-5.1) meq/L Chloride 103 99 (98-107) meq/L Carbon Dioxide 28.3 31.8 (21.0-32.0) meq/L BUN 19 H 18 (7-18) mg/dL Creatinine 0.91 0.99 (0.50-1.00) mg/dL Calcium 8.2 L 8.9 (8.5-10.1) mg/dL AST 16 (15-37) U/L ALT 14 (10-53) U/L Alkaline Phosphatase 78 (45-117) U/L Total Protein 7.3 (6.4-8.2) g/dL Albumin 3.2 L (3.4-5.0) g/dL Intake and Output 02/23/18 02/24/18 02/24/18 22:59 06:59 14:59 Intake Total 400 / 400 240 / 240 Output Total 1200 / 1200 Balance 400 / 400 -960 / -960 Intake: Oral 240 / 240 Intake (Blood Product) Amt 400 / 400 Rbc As-3 Leukoreduced Unit 400 / 400 [id number] Rbc As-3 Leukoreduced Unit 0 / 0 [id number] Output: Urine 1200 / 1200 Other: Date of Last Bowel Movement 02/21/18 Weight 109 lb 2.061 oz - Imaging and Cardiology Imaging: Impressions Neck CTA 02/23/18 00:00 CONCLUSION: Focal stenoses at the proximal internal carotid arteries bilaterally being worse on the right. It appears the right stenosis is approximately 60% and the left stenosis of approximately 50%. Assessment and Plan - Plan 77 y/o female with CAD/hx of [place] in 11/2017, HTN, PAD, hyperlipidemia, and diabetes mellitus. She was previously hospitalized at [facility] in 11/2017 for NSTEMI. At that time she underwent LHC on 11/10/[address] Robert resulting in successful orbital rotational atherectomy and balloon angioplasty with endovascular stenting with bare metal stents to the left main, mid LAD, and diagonal branches. She was seen by cardiothoracic surgery at that time but was felt to be a poor surgical candidate for CABG secondary to carotid disease and porcelain aorta. She continues to have chest discomfort as inpatient. Assessment: CAD with repeat LHC on 02/20/18 which revealed severe left main and three- vessel [place] coronary artery disease with severe in-stent restenosis, low normal left ventricular systolic function with regional LAD territory mild hypokinesis, and normal to mildly elevated left-sided filling pressures. Carotid stenosis - severe by carotid ultrasound mild to moderate by CTA 02/23 Normocytic anemia - hemoglobin improved to normal range after transfusion 2 units PRBCs 02/23, raise in Hgb suspicious for lab error. Will repeat CBC. Plan: CT surgery consulted with plans for CABG on 02/25, make npo after midnight please. holding for now as she was on Brilinta Continue aspirin daily Continue heparin gtt Continue beta-hoda as tolerated Nitroglycerin gtt Discussed Condition With: Patient, Dr. Tinajero - Attending Attestation patient seen and examined. agree with above
[2018-02-24] MEDS ORDERED: Potassium Chloride 10 MEQ ER Capsule PO ONE (08:48)
[2018-02-24] MEDS: Docusate Sodium 100 MG Capsule PO SCH ×2 (09:04→21:32)
[2018-02-24] MEDS: Dorzolamide 2% Opth Drops 10 ML Bottle EACH EYE SCH ×3 (09:04→17:20)
[2018-02-24] MEDS: Metoprolol Tartrate 50 MG Tablet PO SCH ×2 (09:04→21:31)
[2018-02-24] MEDS: Brimonidine 0.2% Opth Drops 5 ML Bottle EACH EYE SCH ×3 (09:04→17:20)
[2018-02-24] MEDS: Timolol 0.5% Drops 5 ML Bottle EACH EYE SCH (09:04)
[2018-02-24] MEDS: Pantoprazole Sodium 20 MG DR Tablet PO SCH (09:04)
[2018-02-24] MEDS: Insulin NovoLOG Aspart Correctional Sugar Inj SQ SCH ×4 (09:25→21:36)
[2018-02-24 09:34] LABS: Hemoglobin A1c 5.1 % (4.3-6.0)
[2018-02-24 10:20] LABS: Hematocrit 38.5 % (35.0-46.0); Hemoglobin 12.7 gm/dL (11.6-15.3); Mean Corpuscular Hemoglobin 28.4 pg (27.0-34.0); Mean Corpuscular Volume 86.2 fL (80.0-100.0); Mean Platelet Volume 9.4 fL (7.0-11.0); Platelet Count 178 th/mm3 (150-450); Red Blood Count 4.47 mil/mm3 (4.00-5.30); Red Cell Distribution Width 15.6 % (11.6-17.2); White Blood Count 5.7 th/mm3 (4.0-11.0)
--- NOTE | 2018-02-24 14:26 | P.PNCV ---
- Note Subjective/Hospital Course: 77-year-old patient of Dr. Baldomero Robert; also Kain Tinajero, Primary Care; who was electively admitted for a cardiac catheterization complaining of intermittent chest pain, midsternal heaviness radiating across her chest, mainly occurs at night. She has a significant history of coronary artery disease. She has been maximized on medication to include Imdur extended release 120 daily, Brilinta and aspirin; also has chronic claudication of her lower extremities, mainly the left leg. She was recently hospitalized for a non -STEMI in November 2017, where she underwent heart catheterization, placement of an Impella device. She had an orbital rotational atherectomy of the left main coronary artery, also a PCI endovascular stenting with bare metal stents the left main, mid left, anterior descending and diagonal branches. Despite maximizing medications the patient has had continued angina; underwent catheterization today, which showed an ejection fraction of 50%, left main disease of 90% proximal LAD, 90%, the mid distal LAD 30%. The diagonal was 90%, the circumflex was 20%, the RCA 90% and the ramus 75%. We were consulted to evaluate for coronary artery bypass grafting. PAST MEDICAL HISTORY: Includes peripheral arterial disease, hypertension, coronary artery disease, hyperlipidemia, chronic anemia, chronic kidney disease stage III, diabetes mellitus with neuropathy, hypertension, hyperlipidemia, lumbar radiculopathy. PAST SURGICAL HISTORY: Includes recent bare-metal stent placement and November 2017, bilateral cataract surgery. She has had an atherectomy of the left leg for SFA occlusion; EGD where they found nonbleeding ulcer some gastritis, 02/23 pt developed chest pain last pm, was started on NTG gtt, pain is now resolved CTA neck pending this am carotid US : 1. Right Internal Carotid Artery: High-grade to critical stenosis internal carotid origin , 2. Left Internal Carotid Artery: High-grade stenosis internal carotid origin venous mapping : minimal conduits lower ext , upper thigh only scheduled for surgery on Saturday 02/24 CTA neck resulted : right ICA 60% , left ICA 50% will need out pt f/u with vascular surgery currently pain free , on NTG and Heparin gtt for surgery in am Objective: Vital Signs - 24 hr 02/23/18 15:00 02/23/18 15:03 02/23/18 15:16 Temperature 98.9 F 99.8 F H 98.9 F Pulse Rate 85 91 H 83 Respiratory Rate 18 18 18 Blood Pressure 131/63 121/61 131/63 Pulse Oximetry 98 96 98 02/23/18 16:00 02/23/18 17:00 02/23/18 17:48 Temperature 100.3 F H Pulse Rate 80 84 88 Respiratory Rate 18 Blood Pressure 148/67 H Pulse Oximetry 98 02/23/18 18:00 02/23/18 19:00 02/23/18 20:00 Temperature 99.0 F Pulse Rate 82 87 96 H Respiratory Rate 16 Blood Pressure 155/74 H Pulse Oximetry 95 02/23/18 21:00 02/23/18 22:00 02/23/18 23:00 Temperature 98.9 F Pulse Rate 92 H 72 71 Respiratory Rate 14 Blood Pressure 134/62 Pulse Oximetry 100 02/24/18 00:00 02/24/18 01:00 02/24/18 02:00 Temperature Pulse Rate 70 68 70 Respiratory Rate Blood Pressure Pulse Oximetry 02/24/18 03:00 02/24/18 04:00 02/24/18 05:00 Temperature 98.1 F Pulse Rate 75 76 72 Respiratory Rate 18 Blood Pressure 116/81 Pulse Oximetry 99 02/24/18 06:00 02/24/18 07:00 02/24/18 08:00 Temperature 98.1 F Pulse Rate 81 82 84 Respiratory Rate 18 Blood Pressure 148/67 H Pulse Oximetry 98 02/24/18 09:00 02/24/18 10:00 02/24/18 11:00 Temperature 98.2 F Pulse Rate 82 70 62 Respiratory Rate 18 Blood Pressure 108/58 L Pulse Oximetry 99 GENERAL: SKIN: Warm and dry. HEAD: Normocephalic. EYES: No scleral icterus. No injection or drainage. NECK: Supple, trachea midline. No JVD or lymphadenopathy. CARDIOVASCULAR: Regular rate and rhythm without murmurs, gallops, or rubs. RESPIRATORY: Breath sounds equal bilaterally. No accessory muscle use. GASTROINTESTINAL: Abdomen soft, non-tender, nondistended. MUSCULOSKELETAL: No cyanosis, or edema. BACK: Nontender without obvious deformity. No CVA tenderness. Labs: Laboratory Results - last 12 hr 02/23/18 02/24/18 02/24/18 11:24 02:12 02:12 WBC 6.2 RBC 4.29 Hgb 12.2 D Hct 36.5 MCV 85.0 MCH 28.4 MCHC 33.4 RDW 15.5 Plt Count 180 MPV 9.1 Neut % (Auto) 63.9 Lymph % (Auto) 23.1 [place] % (Auto) 9.4 H Eos % (Auto) 3.1 Baso % (Auto) 0.5 Neut # (Auto) 4.0 Lymph # (Auto) 1.4 [place] # (Auto) 0.6 Eos # (Auto) 0.2 Baso # (Auto) 0.0 WBC Differential . Differential Comment Auto diff final PT 10.0 INR 1.0 APTT 40.9 H Sodium Potassium Chloride Carbon Dioxide Anion Gap BUN Creatinine Estimated GFR POC Glucose Random Glucose Hemoglobin A1c Calcium Total Bilirubin AST ALT Alkaline Phosphatase Total Protein Albumin MTS Gel Crossmatch See Detail 02/24/18 02/24/18 02/24/18 02:12 02:12 09:21 WBC RBC Hgb Hct MCV MCH MCHC RDW Plt Count MPV Neut % (Auto) Lymph % (Auto) [place] % (Auto) Eos % (Auto) Baso % (Auto) Neut # (Auto) Lymph # (Auto) [place] # (Auto) Eos # (Auto) Baso # (Auto) WBC Differential Differential Comment PT INR APTT Sodium 139 Potassium 3.5 Chloride 99 Carbon Dioxide 31.8 Anion Gap 8 BUN 18 Creatinine 0.99 Estimated GFR 54 L POC Glucose 233 H Random Glucose 123 H Hemoglobin A1c 5.1 Calcium 8.9 Total Bilirubin 1.4 H AST 16 ALT 14 Alkaline Phosphatase 78 Total Protein 7.3 Albumin 3.2 L MTS Gel Crossmatch 02/24/18 02/24/18 02/24/18 09:23 09:23 12:18 WBC 5.7 RBC 4.47 Hgb 12.7 Hct 38.5 MCV 86.2 MCH 28.4 MCHC 33.0 RDW 15.6 Plt Count 178 MPV 9.4 Neut % (Auto) Lymph % (Auto) [place] % (Auto) Eos % (Auto) Baso % (Auto) Neut # (Auto) Lymph # (Auto) [place] # (Auto) Eos # (Auto) Baso # (Auto) WBC Differential Differential Comment PT INR APTT 35.4 H Sodium Potassium Chloride Carbon Dioxide Anion Gap BUN Creatinine Estimated GFR POC Glucose 75 Random Glucose Hemoglobin A1c Calcium Total Bilirubin AST ALT Alkaline Phosphatase Total Protein Albumin MTS Gel Crossmatch Result Diagrams: 02/24/18 09:23 02/24/18 02:12 Telemetry: NSR - Plan (1) PAD (peripheral artery disease) Plan: ASA (2) Carotid stenosis, bilateral Plan: CTA neck resulted : right ICA 60% , left ICA 50% will need outpt f/u with vascular surgery (3) CAD (coronary artery disease) Plan: ASA, BB , statin , Heparin gtt (4) Diabetes mellitus Plan: insulin sliding scale HGB A1C 5.1 resume metformin post surgery (6) Hyperlipidemia Plan: on statin
[2018-02-24] MEDS: Heparin 10,000 UNITS/10 ML Vial (for IV use) IV.PUSH PRN (16:59)
[2018-02-24] MEDS: Heparin Drip 25,000 UNIT/250 ML BAG IV.CONT PRN (17:20)
--- NOTE | 2018-02-24 17:58 | P.PNIM ---
Subjective Interval history: pain controlled. daughter at bedside Physical Exam Vital signs: Last Vital Signs Temp 98.7 F 02/24/18 15:00 Pulse 68 02/24/18 16:00 Resp 18 02/24/18 15:00 BP 130/60 02/24/18 15:00 Pulse Ox 97 02/24/18 15:00 Narrative: heart reg lng cta abd /snt ext no edema Results Labs CBC & Chem 7: 02/24/18 09:23 02/24/18 02:12 Assessment and Plan Plan CAD with in-stent restenosis Chest pain with EKG changes - Pt is a 77 y/o female with CAD/hx of [place] in 11/2017, HTN, PAD, hyperlipidemia, and diabetes mellitus. She was previously hospitalized at [facility] in 11/2017 for NSTEMI. At that time she underwent LHC on 11/10/[address] Robert resulting in successful orbital rotational atherectomy and balloon angioplasty with endovascular stenting with bare metal stents to the left main, mid LAD, and diagonal branches. 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 She was switched from Plavix to Brilinta and ASA during that admission. Pt was followed as an outpt by Dr. Robert and continued to have intermittent chest pain. She has been on Imdur 120mg daily without relief. - Pt was brought to [facility] [place] to undergo re-evaluation with cardiac catheterization as she had noted EKG changes on 02/19/[address] Fenton outpt notes, which noted ST-T depression anterolaterally in V4-V6 when compared to previous EKG from 01/01/2018. - Pt underwent LHC on 02/20/18 which revealed severe left main and three-vessel [place] coronary artery disease with severe in-stent restenosis, low normal left ventricular systolic function with regional LAD territory mild hypokinesis, and normal to mildly elevated left-sided filling pressures. - Pt has been placed on Heparin gtt and nitro gtt - Resumed home doses of Imdur, Metoprolol, Simvastatin, Lisinopril, and Clonidine patch. Planned cabg x 4 on fri Incentive spirometer. 2 units prbc on 02/23 for hgb 7.6 with ongoing cp. plan for OR tomorrow. HTN - Cont. home meds - Monitor Diabetes Mellitus, Hgb A1C 5.0 on 02/09/18 - Hold Metformin 500mg BID - NovoLog SSI - Accu checks Hyperlipidemia - Cont. home meds Progress Note: Quality VTE Deep Vein Thrombosis/Pulmonary Embolism Present on Admission: No
[2018-02-25] MEDS: Nitroglycerin Drip Premix 50 MG/250 ML BOTTLE IV.CONT PRN (00:21)
[2018-02-25] MEDS ORDERED: Chlorhexidine Gluconate 2% 1 Pack (2 Cloths) TOPICAL ONE (04:30)
[2018-02-25] MEDS ORDERED: Sodium Chlor 0.9% Inj 500 ML IV.SIG SCH (05:00)
[2018-02-25] MEDS: Metoprolol Tartrate 50 MG Tablet PO SCH ×3 (06:17→22:05)
[2018-02-25] MEDS ORDERED: MethylPREDNISolone Sod Succinate Inj 125 MG/2 ML Vial ONE (06:31)
[2018-02-25] MEDS ORDERED: Heparin - SQ 10,000 UNITS/ML Vial ONE ×3 (06:31→06:33)
[2018-02-25] MEDS ORDERED: ceFAZolin 2 GM Premix Inj 2 GM/50 ML PIGGYBACK IV.SIG ONE (06:32)
[2018-02-25] MEDS ORDERED: Insulin Regular (For Infusion) 100 UNIT in Sodium Chlor 0.9% Inj 99 ML IV.CONT PRN ×2 (07:07→13:03)
--- NOTE | 2018-02-25 11:25 | P.PNIM ---
Subjective Interval history: no events overnight. Physical Exam Vital signs: Last Vital Signs Temp 98.6 F 02/25/18 05:00 Pulse 64 02/25/18 06:00 Resp 18 02/25/18 05:00 BP 133/63 02/25/18 05:00 Pulse Ox 100 02/25/18 05:00 Narrative: heart reg lng cta abd /snt ext no edema Results Labs CBC & Chem 7: 02/24/18 09:23 02/24/18 02:12 Assessment and Plan Plan CAD with in-stent restenosis Chest pain with EKG changes - Pt is a 77 y/o female with CAD/hx of [place] in 11/2017, HTN, PAD, hyperlipidemia, and diabetes mellitus. She was previously hospitalized at [facility] in 11/2017 for NSTEMI. At that time she underwent LHC on 11/10/[address] Robert resulting in successful orbital rotational atherectomy and balloon angioplasty with endovascular stenting with bare metal stents to the left main, mid LAD, and diagonal branches. 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 She was switched from Plavix to Brilinta and ASA during that admission. Pt was followed as an outpt by Dr. Robert and continued to have intermittent chest pain. She has been on Imdur 120mg daily without relief. - Pt was brought to [facility] [place] [facility] to undergo re-evaluation with cardiac catheterization as she had noted EKG changes on 02/19/[address] Fenton outpt notes, which noted ST-T depression anterolaterally in V4-V6 when compared to previous EKG from 01/01/2018. - Pt underwent LHC on 02/20/18 which revealed severe left main and three-vessel [place] coronary artery disease with severe in-stent restenosis, low normal left ventricular systolic function with regional LAD territory mild hypokinesis, and normal to mildly elevated left-sided filling pressures. - Pt has been placed on Heparin gtt and nitro gtt - Resumed home doses of Imdur, Metoprolol, Simvastatin, Lisinopril, and Clonidine patch. Planned cabg x 4 on fri Incentive spirometer. 2 units prbc on 02/23 for hgb 7.6 with ongoing cp. plan for OR today. HTN - Cont. home meds - Monitor Diabetes Mellitus, Hgb A1C 5.0 on 02/09/18 - Hold Metformin 500mg BID - NovoLog SSI - Accu checks Hyperlipidemia - Cont. home meds Progress Note: Quality VTE Deep Vein Thrombosis/Pulmonary Embolism Present on Admission: No
[2018-02-25] MEDS ORDERED: ceFAZolin 1 GM Premix Inj 1 GM/50 ML FROZ.PIGGY IV.SIG ONE (11:48)
[2018-02-25] MEDS ORDERED: Calcium Chloride Inj 1 GM in Sodium Chlor 0.9% Inj 100 ML IV.SIG PRN (13:03)
[2018-02-25] MEDS ORDERED: Albumin Human 5% Inj 250 ML IV.SIG PRN (13:03)
[2018-02-25] MEDS ORDERED: Magnesium Sulfate Inj 2 GM in Sodium Chlor 0.9% Inj 96 ML IV.SIG PRN ×4 (13:03)
[2018-02-25] MEDS ORDERED: Potassium Chlor 20 mEq Premix 20 MEQ/100 ML PIGGYBACK IV.SIG PRN ×3 (13:03)
[2018-02-25] MEDS ORDERED: Post-op Orders (for Pharmacy) OTHER STA (13:03)
[2018-02-25] MEDS ORDERED: Dexmedetomidine Inj 200 MCG in Sodium Chlor 0.9% Inj 48 ML IV.CONT PRN (13:03)
[2018-02-25] MEDS ORDERED: Calcium Chloride Inj 1 GM/10 ML Syringe IV.PUSH PRN (13:03)
[2018-02-25] MEDS ORDERED: Dextrose 50% in Water 50 ML Vial IV.PUSH PRN (13:03)
[2018-02-25] MEDS ORDERED: RESP: Racemic Epinephrine 2.25% 0.5 ML Neb NEB SCH (13:03)
[2018-02-25] MEDS ORDERED: Potassium Chlor 40 mEq Premix 40 MEQ/100 ML PIGGYBACK ONE (13:19)
[2018-02-25] MEDS ORDERED: Heparin 10,000 UNITS/10 ML Vial (for IV use) ONE (13:19)
[2018-02-25] MEDS ORDERED: Albumin Human 25% Inj 50 ML IV.SIG ONE (13:20)
--- NOTE | 2018-02-25 13:20 | P.OP ---
- Preoperative Diagnosis (1) Unstable angina (2) CAD (coronary artery disease) Preoperative Diagnosis: porcelain aorta Postoperative Diagnosis: same, porcelain aorta Date of procedure: 02/25/18 Procedure: Pump-assisted CABG x 4 EDUARDO to LAd - good SVG to PDA - good SVG to RI - good SVG to D1 - good EVH (bilateral) TYRELL Anesthesia: DAVID Surgeon: Arabella Avila MD Family Sociologist: Jessi Byrd Pathology: other (left internal mammary lymph node) Operation and Findings: The risks, benefits, complications, treatment options, and expected outcomes were discussed with the patient. The possibilities of reaction to medication, pulmonary aspiration, perforation of viscus, bleeding, recurrent infection, the need for additional procedures, failure to diagnose a condition, and creating a complication requiring transfusion or operation were discussed with the patient. The patient concurred with the proposed plan, giving informed consent. The site of surgery properly noted/marked. The patient was taken to Operating Room, identified as Fern Meredith and the procedure verified as CABG, EVH, TYRELL. A Time Out was held and the above information confirmed. Standard monitoring lines and Masters catheter were placed. General anesthesia was induced. The patient was prepped and draped in a sterile fashion. A median sternotomy was performed and electrocautery was used to obtain hemostasis. The left internal mammary artery was procured as a pedicle from the 7th rib to the 1st rib in the usual manner. Simultaneously left and right greater saphenous vein was procured from the both legs using a minimally invasive endoscopic technique. The vein was prepared for anastomosis and the leg wound was irrigated and closed in 2 layers. The pericardium was opened and a pericardial sling was created using interrupted 0 silk sutures. The patient was heparinized for cardiopulmonary bypass and the distal mammary pedicle was instrumented for anastomosis. The patient has a known porcelain aorta, and a spot free of palpable disease was selected for aortic cannulation. The patient was placed in steep Trendelenburg's position for any aortic manipulation. The heart was instrumented for cardiopulmonary bypass in the usual manner. The patient was placed on cardiopulmonary bypass. A [place] stabilization device was used for each distal anastomosis and a Heartstring device was used for 2 proximal anastomoses. After adequate arrest, the distal right coronary circulation was investigated and the PDA was opened with a [place] blade and found to be a 1.5 millimeter good target. Saphenous vein was approximated to the PDA artery using a running 7 0 Prolene suture. The graft was measured for length and orientation and the proximal anastomosis was constructed to the ascending aorta using a running 5 0 Prolene suture after creating an aortotomy with a Heartstring device. The ramus intermedius artery was then opened with a [place] blade and found to be a 1.5 millimeter good target. Saphenous vein was approximated to the RI artery using a running 7 0 Prolene suture. The graft was measured for length and orientation and the proximal anastomosis was constructed to the ascending aorta using a running 5 0 Prolene suture after creating an aortotomy with a Heartstring device. The 1st diagonal artery was then opened with a [place] blade and found to be a 1.5 millimeter good target. Saphenous vein was approximated to the OM1 artery using a running 7 0 Prolene suture. The graft was measured for length and orientation and was suspended from the pericardium. The distal LAD was opened with a [place] blade and found to be a 1.5 millimeter good target. The left internal mammary artery was approximated to the LAD using a running 7 0 Prolene suture. The pedicle was attached to the epicardium using interrupted 5 0 silk suture. The patient was systemically rewarmed. The proximal anastomosis to the D1 graft was accomplished using a running 7 0 Prolene suture in an end to side manner to the RI vein graft. All proximal and distal anastomoses were examined for hemostasis. The patient was weaned from cardiopulmonary bypass. Protamine was given. There was no adverse reaction. Decannulation was carried out without incident. Wound was checked for hemostasis which was obtained using electrocautery. A 36 Vietnamese mediastinal and 32 Vietnamese left pleural chest tubes were placed and secured to the skin with 0 silk suture. The sternum was closed with stainless steel wire. The fascia was closed with 1. PDS. The subcutaneous tissue was closed using a running 2-0 Vicryl suture. The skin was closed with 4-0 Monocryl. Sterile dressings were placed. At the end of the operation, all sponge, instruments, and needle counts were correct. The patient was transferred to the CVICU in stable condition. Findings: porcelain aorta, cardiomegaly, mild MR, mild , Preserved EF. CPB: 117 min Drains: mediastinal x 1 pleural x 1 Specimens: Left internal mammary node Complications: none
[2018-02-25] MEDS ORDERED: Calcium Chloride Inj 1 GM/10 ML Syringe ONE (13:21)
[2018-02-25] MEDS ORDERED: fentaNYL Citrate Inj 250 MCG/5 ML Ampul ONE (13:42)
--- NOTE | 2018-02-25 13:54 | XR ---
EXAM DATE: 02/25/2018 1:51 PM EST AGE/SEX: 77 years / Female INDICATIONS: Post op cabg. CLINICAL DATA: This is the patient's initial encounter. Patient reports that signs and symptoms have been present for 1 day and indicates a pain score of Nonresponsive. MEDICAL/SURGICAL HISTORY: Hypertension. Hypercholesterolemia. Carcinoma, uterine. diabetes, PAD, PVD, Coronary artery stent. [place] [facility] [place]. . FINDINGS: Endotracheal tube is present with tip several centimeters above the gladis. Nasogastric tube descends into the stomach. Left chest tube and midline thoracostomy tube are present. Right neck sheath and c entral catheter are present. Central line tip extends into the mid right atrium. There is mild centra l vascular congestion and slight atelectasis in the left lung base. Cardiac contours are satisfactory . Sternotomy wires are present. CONCLUSION: Central line tip is a bit deep. Otherwise satisfactory postop appearance Electronically signed by: Danny Pruitt MD 02/25/2018 1:53 PM EST
[2018-02-25] MEDS: Amiodarone 200 MG Tablet PO SCH ×2 (14:29→21:42)
[2018-02-25] MEDS: Brimonidine 0.2% Opth Drops 5 ML Bottle EACH EYE SCH ×2 (14:32→17:16)
[2018-02-25] MEDS: Docusate Sodium 100 MG Capsule PO SCH ×2 (14:33→21:41)
[2018-02-25] MEDS: Pantoprazole Sodium 20 MG DR Tablet PO SCH (14:35)
[2018-02-25] MEDS: Timolol 0.5% Drops 5 ML Bottle EACH EYE SCH (14:36)
[2018-02-25] MEDS: Dorzolamide 2% Opth Drops 10 ML Bottle EACH EYE SCH ×2 (14:37→17:15)
[2018-02-25] MEDS ORDERED: Clevidipine Inj 25 MG/50 ML VIAL IV.CONT PRN (17:43)
[2018-02-25] MEDS: fentaNYL Citrate Inj 100 MCG/2 ML Ampul IV.PUSH PRN ×2 (17:58→21:42)
[2018-02-25] MEDS: ceFAZolin 1 GM Premix Inj 1 GM/50 ML IV.SIG SCH (21:41)
[2018-02-26] MEDS: fentaNYL Citrate Inj 100 MCG/2 ML Ampul IV.PUSH PRN ×3 (02:20→08:12)
[2018-02-26] MEDS: Metoprolol Inj 5 MG/5 ML Vial IV.PUSH PRN ×2 (02:23→23:34)
[2018-02-26 04:56] LABS: Hematocrit 33.4 % (35.0-46.0); Hemoglobin 11.4 gm/dL (11.6-15.3); Mean Corpuscular Volume 85.3 fL (80.0-100.0); Mean Platelet Volume 9.6 fL (7.0-11.0); Platelet Count 164 th/mm3 (150-450); Red Blood Count 3.92 mil/mm3 (4.00-5.30); Red Cell Distribution Width 15.6 % (11.6-17.2); White Blood Count 10.2 th/mm3 (4.0-11.0)
[2018-02-26] MEDS: ceFAZolin 1 GM Premix Inj 1 GM/50 ML IV.SIG SCH ×3 (05:17→20:46)
[2018-02-26 05:28] LABS: Calcium 8.3 mg/dL (8.5-10.1); Magnesium 2.2 mg/dL (1.5-2.5)
[2018-02-26 05:29] LABS: Potassium 5.1 meq/L (3.5-5.1)
--- NOTE | 2018-02-26 05:59 | XR ---
EXAM DATE: 02/26/2018 5:34 AM EST AGE/SEX: 77 years / Female INDICATIONS: Post CABG. CLINICAL DATA: This is the patient's subsequent encounter. Patient reports that signs and symptoms h ave been present for 2 days and indicates a pain score of Nonresponsive. MEDICAL/SURGICAL HISTORY: . Hypertension. Hypercholesterolemia. Carcinoma, uterine. diabetes. . Coronary artery stent. CABG. [place] [facility] [place]. . FINDINGS: Single AP view of the chest. Endotracheal tube and nasogastric tube no longer seen. Right IJ central venous catheter and left-sided chest tube remain in place along with mediastinal drain. Lung volumes have decreased. Increased bilateral lower lung zone pulmonary parenchymal opacity. CONCLUSION: 1. Endotracheal tube and nasogastric tube no longer seen. 2. Decrease in lung volumes. 3. Increase in bilateral lower lung zone opacity. Electronically signed by: Sy Verma MD 02/26/2018 5:58 AM EST
[2018-02-26] MEDS: Amiodarone 200 MG Tablet PO SCH ×3 (06:18→21:00)
[2018-02-26] MEDS: Timolol 0.5% Drops 5 ML Bottle EACH EYE SCH (08:13)
[2018-02-26] MEDS: Docusate Sodium 100 MG Capsule PO SCH ×2 (08:14→20:48)
[2018-02-26] MEDS: Brimonidine 0.2% Opth Drops 5 ML Bottle EACH EYE SCH ×4 (08:16→18:29)
[2018-02-26] MEDS: Dorzolamide 2% Opth Drops 10 ML Bottle EACH EYE SCH ×4 (08:16→18:29)
[2018-02-26] MEDS ORDERED: Dextrose 50% in Water 50 ML Vial IV.PUSH PRN (09:01)
[2018-02-26] MEDS ORDERED: Bisacodyl 10 MG Supp RECTAL PRN (09:01)
--- NOTE | 2018-02-26 09:12 | P.PNCV ---
- Note Subjective/Hospital Course: 77-year-old patient of Dr. Baldomero Robert; also Kain Tinajero, Primary Care; who was electively admitted for a cardiac catheterization complaining of intermittent chest pain, midsternal heaviness radiating across her chest, mainly occurs at night. She has a significant history of coronary artery disease. She has been maximized on medication to include Imdur extended release 120 daily, Brilinta and aspirin; also has chronic claudication of her lower extremities, mainly the left leg. She was recently hospitalized for a non -STEMI in November 2017, where she underwent heart catheterization, placement of an Impella device. She had an orbital rotational atherectomy of the left main coronary artery, also a PCI endovascular stenting with bare metal stents the left main, mid left, anterior descending and diagonal branches. Despite maximizing medications the patient has had continued angina; underwent catheterization today, which showed an ejection fraction of 50%, left main disease of 90% proximal LAD, 90%, the mid distal LAD 30%. The diagonal was 90%, the circumflex was 20%, the RCA 90% and the ramus 75%. We were consulted to evaluate for coronary artery bypass grafting. PAST MEDICAL HISTORY: Includes peripheral arterial disease, hypertension, coronary artery disease, hyperlipidemia, chronic anemia, chronic kidney disease stage III, diabetes mellitus with neuropathy, hypertension, hyperlipidemia, lumbar radiculopathy. PAST SURGICAL HISTORY: Includes recent bare-metal stent placement and November 2017, bilateral cataract surgery. She has had an atherectomy of the left leg for SFA occlusion; EGD where they found nonbleeding ulcer some gastritis, 02/23 pt developed chest pain last pm, was started on NTG gtt, pain is now resolved CTA neck pending this am carotid US : 1. Right Internal Carotid Artery: High-grade to critical stenosis internal carotid origin , 2. 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: same, porcelain aorta Date of procedure: 02/25/18 Procedure: Pump-assisted CABG x 4 EDUARDO to LAd - good SVG to PDA - good SVG to RI - good SVG to D1 - good EVH (bilateral) 2500cc crystalloid , 500cc cell saver, 1500cc EBL extubated after surgery 02/26 up in chair, c/o of pain chest tube no air leak sinus tach / BP elevated start BB , gentle diuresis ASA, statin , amiodarone Objective: Vital Signs - 24 hr 02/25/18 13:27 02/25/18 13:30 02/25/18 13:40 Temperature 97.4 F L 97.4 F L Pulse Rate 75 Respiratory Rate 10 L 10 L Blood Pressure 125/68 Pulse Oximetry 99 99 02/25/18 15:00 02/25/18 15:27 02/25/18 16:43 Temperature 98.0 F Pulse Rate 65 Respiratory Rate 10 L 18 Blood Pressure 110/62 Pulse Oximetry 97 97 94 L 02/25/18 17:25 02/25/18 19:00 02/25/18 19:30 Temperature 98.7 F Pulse Rate Respiratory Rate Blood Pressure Pulse Oximetry 92 L 95 02/25/18 20:00 02/25/18 22:23 02/26/18 00:00 Temperature 98.6 F 98.8 F Pulse Rate 93 H 108 H 120 H Respiratory Rate 16 20 18 Blood Pressure 138/70 141/76 H Pulse Oximetry 92 L 94 L 02/26/18 03:34 02/26/18 04:00 Temperature 99.1 F Pulse Rate 103 H 92 H Respiratory Rate 18 16 Blood Pressure 127/72 Pulse Oximetry 95 96 GENERAL: A&O x 3 SKIN: Warm and dry. prevena dressing to chest , shraddha wrap both upper thigh HEAD: Normocephalic. EYES: No scleral icterus. No injection or drainage. NECK: Supple, trachea midline. No JVD or lymphadenopathy. CARDIOVASCULAR: Regular rate and rhythm without murmurs, gallops, or rubs. slightly tachycardic , general edema RESPIRATORY: Breath sounds equal bilaterally. No accessory muscle use. diminished in bases, chest tube to wall suction / drained 120cc/ 12 hrs GASTROINTESTINAL: Abdomen soft, non-tender, nondistended. MUSCULOSKELETAL: No cyanosis, or edema. BACK: Nontender without obvious deformity. No CVA tenderness. Labs: Laboratory Results - last 12 hr 1102/25/18 02/25/18 Unknown 21:52 23:05 WBC RBC Hgb Hct MCV MCH MCHC RDW Plt Count MPV Sodium Potassium Chloride Carbon Dioxide Anion Gap BUN Creatinine Estimated GFR POC Glucose 152 H 150 H Random Glucose Calcium Magnesium MTS Gel Crossmatch See Detail 02/26/18 02/26/18 02/26/18 00:43 02:27 04:40 WBC 10.2 RBC 3.92 L Hgb 11.4 L Hct 33.4 L MCV 85.3 MCH 29.0 MCHC 34.0 RDW 15.6 Plt Count 164 MPV 9.6 Sodium Potassium Chloride Carbon Dioxide Anion Gap BUN Creatinine Estimated GFR POC Glucose 73 119 H Random Glucose Calcium Magnesium MTS Gel Crossmatch 02/26/18 02/26/18 02/26/18 04:40 04:45 06:29 WBC RBC Hgb Hct MCV MCH MCHC RDW Plt Count MPV Sodium 141 Potassium 5.1 Chloride 108 H Carbon Dioxide 25.0 Anion Gap 8 BUN 19 H Creatinine 1.06 H Estimated GFR 50 L POC Glucose 89 149 H Random Glucose 90 Calcium 8.3 L Magnesium 2.2 MTS Gel Crossmatch 02/26/18 08:02 WBC RBC Hgb Hct MCV MCH MCHC RDW Plt Count MPV Sodium Potassium Chloride Carbon Dioxide Anion Gap BUN Creatinine Estimated GFR POC Glucose 122 H Random Glucose Calcium Magnesium MTS Gel Crossmatch Result Diagrams: 02/26/18 04:40 02/26/18 04:40 - Plan (1) PAD (peripheral artery disease) Plan: ASA (2) Carotid stenosis, bilateral Plan: CTA neck resulted : right ICA 60% , left ICA 50% will need outpt f/u with vascular surgery (3) CAD (coronary artery disease) Plan: ASA, BB , statin , Heparin gtt (4) Diabetes mellitus Plan: insulin sliding scale HGB A1C 5.1 resume metformin post surgery (6) Hyperlipidemia Plan: on statin (8) S/P CABG x 4 Plan: ASA, statin , BB amiodarone gentle diuresis OOB PT on SHRADDHA at home was on Brilinta at home
[2018-02-26] MEDS: Metoprolol Tartrate 25 MG Tablet PO SCH ×2 (09:24→20:48)
[2018-02-26] MEDS: Insulin NovoLOG Aspart Correctional Sugar Inj SQ SCH ×6 (10:17→21:02)
[2018-02-26] MEDS: Metoprolol Tartrate 50 MG Tablet PO SCH (10:25)
--- NOTE | 2018-02-26 15:22 | P.PNIM ---
Subjective Interval history: in chair. doing ok Physical Exam Vital signs: Last Vital Signs Temp 98.2 F 02/26/18 14:22 Pulse 82 02/26/18 14:22 Resp 16 02/26/18 14:22 BP 123/63 02/26/18 14:22 Pulse Ox 100 02/26/18 14:22 Narrative: chest tube art line lung cta heart reg Results Labs CBC & Chem 7: 02/26/18 04:40 02/26/18 04:40 Assessment and Plan Assessment (1) PAD (peripheral artery disease): Code(s): I73.9 - Peripheral vascular disease, unspecified Status: Acute (2) Carotid stenosis, bilateral: Code(s): I65.23 - Occlusion and stenosis of bilateral carotid arteries Status: Acute (3) CAD (coronary artery disease): Code(s): I25.10 - Atherosclerotic heart disease of [place] coronary artery without angina pectoris Status: Chronic (4) Diabetes mellitus: Code(s): E11.9 - Type 2 diabetes mellitus without complications Status: Chronic (5) HTN (hypertension): Code(s): I10 - Essential (primary) hypertension Status: Chronic (6) Hyperlipidemia: Code(s): E78.5 - Hyperlipidemia, unspecified Status: Chronic (7) Normocytic anemia: Code(s): D64.9 - Anemia, unspecified Status: Acute (8) S/P CABG x 4: Code(s): Z95.1 - Presence of aortocoronary bypass graft Status: Acute Plan CAD with in-stent restenosis Chest pain with EKG changes - Pt is a 77 y/o female with CAD/hx of [place] in 11/2017, HTN, PAD, hyperlipidemia, and diabetes mellitus. She was previously hospitalized at [facility] in 11/2017 for NSTEMI. At that time she underwent LHC on 11/10/[address] Robert resulting in successful orbital rotational atherectomy and balloon angioplasty with endovascular stenting with bare metal stents to the left main, mid LAD, and diagonal branches. 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 She was switched from Plavix to Brilinta and ASA during that admission. Pt was followed as an outpt by Dr. Robert and continued to have intermittent chest pain. She has been on Imdur 120mg daily without relief. - Pt was [place] [facility] [place] re-evaluation with cardiac catheterization as she had noted EKG changes on 02/19/[address] Fenton outpt notes, which noted ST-T depression anterolaterally in V4-V6 when compared to previous EKG from 01/01/2018. - Pt underwent LHC on 02/20/18 which revealed severe left main and three-vessel [place] coronary artery disease with severe in-stent restenosis, low normal left ventricular systolic function with regional LAD territory mild hypokinesis, and normal to mildly elevated left-sided filling pressures. - Pt has been placed on Heparin gtt and nitro gtt - Resumed home doses of Imdur, Metoprolol, Simvastatin, Lisinopril, and Clonidine patch. Planned cabg x 4 on fri Incentive spirometer. 2 units prbc on 02/23 for hgb 7.6 with ongoing cp. s/p 4v Cabg 02/25 will see prn. pt followed by cardiology and CTS. HTN - Cont. home meds - Monitor Diabetes Mellitus, Hgb A1C 5.0 on 02/09/18 - Hold Metformin 500mg BID - pt on insuling gtt at 6u/hr currently. per CTS protocol. Hyperlipidemia - Cont. home meds Progress Note: Quality VTE Deep Vein Thrombosis/Pulmonary Embolism Present on Admission: No _ (1) CAD (coronary artery disease) Qualifiers: Coronary Disease-Associated Artery/Lesion type: [place] vs. transplanted heart: Associated angina: (2) Diabetes mellitus Qualifiers: Diabetes mellitus type: Diabetes mellitus correction insulin use: Diabetes mellitus complication status: Diabetes mellitus complication detail: Diabetic retinopathy severity: Proliferative retinopathy type: Diabetes mellitus macular edema: Laterality: Chronic kidney disease stage: (3) HTN (hypertension) Qualifiers: Hypertension type: (4) Hyperlipidemia Qualifiers: Hyperlipidemia type:
--- NOTE | 2018-02-26 22:40 | ECG ---
Date Performed: 02/26/2018 Time Performed: 04:19:24 PTAGE: 77 years EKG: Sinus rhythm Possible anterior infarct - age undetermined Low QRS voltages in precordial leads Abnormal ECG PREVIOUS TRACING : 02/23/2018 06.52 Compared to previous tracing, low voltage is new DOCTOR: John Tinajero Interpretating Date/Time 02/26/2018 22:40:08
[2018-02-27] MEDS: Insulin NovoLOG Aspart Correctional Sugar Inj SQ SCH ×5 (01:32→21:04)
[2018-02-27] MEDS: ceFAZolin 1 GM Premix Inj 1 GM/50 ML IV.SIG SCH (05:28)
[2018-02-27] MEDS: Amiodarone 200 MG Tablet PO SCH ×3 (05:28→21:03)
[2018-02-27 06:14] LABS: Baso % (Auto) 0.2 % (0.0-2.0); Eos % (Auto) 0.1 % (0.0-4.0); Hematocrit 31.7 % (35.0-46.0); Hemoglobin 10.2 gm/dL (11.6-15.3); Lymph # (Auto) 1.7 th/mm3 (1.0-4.8); Lymph % (Auto) 14.1 % (9.0-44.0); Mean Corpuscular HGB Conc 32.2 % (32.0-36.0); Mean Corpuscular Hemoglobin 28.2 pg (27.0-34.0); Mean Corpuscular Volume 87.6 fL (80.0-100.0); Mean Platelet Volume 9.8 fL (7.0-11.0); Mono # (Auto) 1.5 th/mm3 (0.0-0.9); Mono % (Auto) 12.3 % (0.0-8.0); Neut # (Auto) 8.9 th/mm3 (1.8-7.7); Neut % (Auto) 73.3 % (16.0-70.0); Platelet Count 182 th/mm3 (150-450); Red Blood Count 3.62 mil/mm3 (4.00-5.30); Red Cell Distribution Width 15.6 % (11.6-17.2); White Blood Count 12.2 th/mm3 (4.0-11.0)
[2018-02-27 06:27] LABS: Calcium 8.5 mg/dL (8.5-10.1); Carbon Dioxide 29.2 meq/L (21.0-32.0); Magnesium 2.1 mg/dL (1.5-2.5); Potassium 4.4 meq/L (3.5-5.1)
[2018-02-27] MEDS: Docusate Sodium 100 MG Capsule PO SCH ×2 (08:40→21:03)
[2018-02-27] MEDS: Dorzolamide 2% Opth Drops 10 ML Bottle EACH EYE SCH ×3 (08:40→18:57)
[2018-02-27] MEDS: Brimonidine 0.2% Opth Drops 5 ML Bottle EACH EYE SCH ×3 (08:40→18:57)
[2018-02-27] MEDS: Timolol 0.5% Drops 5 ML Bottle EACH EYE SCH (08:40)
[2018-02-27] MEDS: Metoprolol Tartrate 25 MG Tablet PO SCH ×2 (08:41→21:03)
[2018-02-27] MEDS: Multivitamin/Minerals Therapeutic Tablet PO SCH (08:41)
[2018-02-27] MEDS: Polyethylene Glycol 3350 17 GM Packet PO SCH (08:42)
--- NOTE | 2018-02-27 09:09 | P.DIET ---
Nutritional Evaluation Screening comments: MDC for diet education s/p CABG on 02/25/18. Patient Navigator to provide education. RD is following pt monitoring po intake and is available for any questions.
--- NOTE | 2018-02-27 11:57 | P.PNCV ---
- Note CVT: Post Op Day #: 2 Subjective/Hospital Course: 77-year-old patient of Dr. Baldomero Robert; also Kain Tinajero, Primary Care; who was electively admitted for a cardiac catheterization complaining of intermittent chest pain, midsternal heaviness radiating across her chest, mainly occurs at night. She has a significant history of coronary artery disease. She has been maximized on medication to include Imdur extended release 120 daily, Brilinta and aspirin; also has chronic claudication of her lower extremities, mainly the left leg. She was recently hospitalized for a non -STEMI in November 2017, where she underwent heart catheterization, placement of an Impella device. She had an orbital rotational atherectomy of the left main coronary artery, also a PCI endovascular stenting with bare metal stents the left main, mid left, anterior descending and diagonal branches. Despite maximizing medications the patient has had continued angina; underwent catheterization today, which showed an ejection fraction of 50%, left main disease of 90% proximal LAD, 90%, the mid distal LAD 30%. The diagonal was 90%, the circumflex was 20%, the RCA 90% and the ramus 75%. We were consulted to evaluate for coronary artery bypass grafting. PAST MEDICAL HISTORY: Includes peripheral arterial disease, hypertension, coronary artery disease, hyperlipidemia, chronic anemia, chronic kidney disease stage III, diabetes mellitus with neuropathy, hypertension, hyperlipidemia, lumbar radiculopathy. PAST SURGICAL HISTORY: Includes recent bare-metal stent placement and November 2017, bilateral cataract surgery. She has had an atherectomy of the left leg for SFA occlusion; EGD where they found nonbleeding ulcer some gastritis, 02/23 pt developed chest pain last pm, was started on NTG gtt, pain is now resolved CTA neck pending this am carotid US : 1. Right Internal Carotid Artery: High-grade to critical stenosis internal carotid origin , 2. 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: same, porcelain aorta Date of procedure: 02/25/18 Procedure: Pump-assisted CABG x 4 EDUARDO to LAd - good SVG to PDA - good SVG to RI - good SVG to D1 - good EVH (bilateral) 2500cc crystalloid , 500cc cell saver, 1500cc EBL extubated after surgery 02/26 up in chair, c/o of pain chest tube no air leak sinus tach / BP elevated start BB , gentle diuresis ASA, statin , amiodarone 02/17/18 c/o incisional pain Objective: Vital Signs - 24 hr 02/26/18 13:00 02/26/18 14:00 02/26/18 14:13 Temperature Pulse Rate 80 86 82 Respiratory Rate 16 Blood Pressure Pulse Oximetry 02/26/18 14:22 02/26/18 15:00 02/26/18 15:32 Temperature 98.2 F Pulse Rate 82 82 107 H Respiratory Rate 16 20 Blood Pressure 123/63 Pulse Oximetry 100 02/26/18 17:52 02/26/18 19:00 02/26/18 20:00 Temperature 98.2 F Pulse Rate 94 H 122 H 120 H Respiratory Rate 22 Blood Pressure 153/70 H Pulse Oximetry 95 02/26/18 21:00 02/26/18 21:07 02/26/18 21:56 Temperature Pulse Rate 111 H 116 H Respiratory Rate 20 18 Blood Pressure Pulse Oximetry 98 02/26/18 22:00 02/26/18 23:00 02/27/18 00:00 Temperature 98.7 F Pulse Rate 112 H 126 H 94 H Respiratory Rate 22 Blood Pressure 139/74 Pulse Oximetry 95 02/27/18 01:00 02/27/18 02:00 02/27/18 02:27 Temperature Pulse Rate 100 H 88 Respiratory Rate 18 Blood Pressure Pulse Oximetry 02/27/18 03:00 02/27/18 04:00 02/27/18 05:00 Temperature 97.9 F Pulse Rate 98 H 89 94 H Respiratory Rate 20 Blood Pressure 125/65 Pulse Oximetry 98 02/27/18 06:00 02/27/18 06:07 02/27/18 07:00 Temperature 98.8 F Pulse Rate 87 94 H Respiratory Rate 18 20 Blood Pressure 122/57 L Pulse Oximetry 97 02/27/18 08:00 02/27/18 08:08 02/27/18 09:00 Temperature Pulse Rate 90 96 H 104 H Respiratory Rate 18 Blood Pressure Pulse Oximetry 97 02/27/18 10:00 Temperature Pulse Rate 80 Respiratory Rate Blood Pressure Pulse Oximetry Labs: Laboratory Results - last 12 hr 02/27/18 02/27/18 02/27/18 01:05 05:35 05:35 WBC 12.2 H RBC 3.62 L Hgb 10.2 L Hct 31.7 L MCV 87.6 MCH 28.2 MCHC 32.2 RDW 15.6 Plt Count 182 MPV 9.8 Neut % (Auto) 73.3 H Lymph % (Auto) 14.1 [place] % (Auto) 12.3 H Eos % (Auto) 0.1 Baso % (Auto) 0.2 Neut # (Auto) 8.9 H Lymph # (Auto) 1.7 [place] # (Auto) 1.5 H Eos # (Auto) 0.0 Baso # (Auto) 0.0 WBC Differential . Differential Comment Auto diff final Sodium 137 Potassium 4.4 Chloride 101 Carbon Dioxide 29.2 Anion Gap 7 BUN 18 Creatinine 1.03 H Estimated GFR 52 L POC Glucose 135 H Random Glucose 141 H Calcium 8.5 Magnesium 2.1 02/27/18 02/27/18 05:35 11:49 WBC RBC Hgb Hct MCV MCH MCHC RDW Plt Count MPV Neut % (Auto) Lymph % (Auto) [place] % (Auto) Eos % (Auto) Baso % (Auto) Neut # (Auto) Lymph # (Auto) [place] # (Auto) Eos # (Auto) Baso # (Auto) WBC Differential Differential Comment Sodium Potassium Chloride Carbon Dioxide Anion Gap BUN Creatinine Estimated GFR POC Glucose 139 H 167 H Random Glucose Calcium Magnesium Result Diagrams: 02/27/18 05:35 02/27/18 05:35 Imaging: Carotid Doppler Study 02/20/18 12:58 CONCLUSION: 1. Right Internal Carotid Artery: High-grade to critical stenosis internal carotid origin 2. Left Internal Carotid Artery: High-grade stenosis internal carotid origin 3. CT angiography could be used further evaluate Lower Extremity Ultrasound 02/20/18 12:58 CONCLUSION: 1. Venous mapping as described above. Thrombosis of calf vessels on the left Venous Doppler Study 02/20/18 12:58 CONCLUSION: 1. Negative for deep venous thrombosis Neck CTA 02/23/18 00:00 CONCLUSION: Focal stenoses at the proximal internal carotid arteries bilaterally being worse on the right. It appears the right stenosis is approximately 60% and the left stenosis of approximately 50%. Chest X-Ray 02/26/18 05:00 CONCLUSION: 1. Endotracheal tube and nasogastric tube no longer seen. 2. Decrease in lung volumes. 3. Increase in bilateral lower lung zone opacity. Cardiovascular: RRR Telemetry: NSR Pulmonary: Decreased BS bilat GI/: NABS, NT Incision: dry and intact CT: 60ml/12hrs - Plan (1) PAD (peripheral artery disease) Plan: ASA (2) Carotid stenosis, bilateral Plan: CTA neck resulted : right ICA 60% , left ICA 50% will need outpt f/u with vascular surgery (3) CAD (coronary artery disease) Plan: ASA, BB , statin , Heparin gtt (4) Diabetes mellitus Plan: insulin sliding scale HGB A1C 5.1 resume metformin post surgery (6) Hyperlipidemia Plan: on statin (8) S/P CABG x 4 Plan: ASA, statin , BB amiodarone gentle diuresis OOB PT on SHRADDHA at home was on Brilinta at home Remove chest tubes Plavix Encourage ambulation, up to chair.
[2018-02-27] MEDS: Metoprolol Inj 5 MG/5 ML Vial IV.PUSH PRN (23:49)
[2018-02-28] MEDS ORDERED: Sod Phosphate/Sod Biphosphate (Adult) Enema 133 ML Bottle RECTAL PRN (06:00)
[2018-02-28] MEDS: Amiodarone 200 MG Tablet PO SCH (06:05)
[2018-02-28] MEDS: Multivitamin/Minerals Therapeutic Tablet PO SCH (08:54)
[2018-02-28] MEDS: Insulin NovoLOG Aspart Correctional Sugar Inj SQ SCH ×4 (08:54→20:42)
[2018-02-28] MEDS: Metoprolol Tartrate 25 MG Tablet PO SCH ×2 (08:54→20:41)
[2018-02-28] MEDS: Polyethylene Glycol 3350 17 GM Packet PO SCH (08:54)
[2018-02-28] MEDS: Docusate Sodium 100 MG Capsule PO SCH ×2 (08:54→20:41)
[2018-02-28] MEDS: Dorzolamide 2% Opth Drops 10 ML Bottle EACH EYE SCH ×3 (08:55→17:16)
[2018-02-28] MEDS: Brimonidine 0.2% Opth Drops 5 ML Bottle EACH EYE SCH ×3 (08:55→17:15)
[2018-02-28] MEDS: Timolol 0.5% Drops 5 ML Bottle EACH EYE SCH (08:57)
--- NOTE | 2018-02-28 09:30 | P.PNCV ---
- Note CVT: Post Op Day #: 3 Subjective/Hospital Course: 77-year-old patient of Dr. Baldomero Robert; also Kain Tinajero, Primary Care; who was electively admitted for a cardiac catheterization complaining of intermittent chest pain, midsternal heaviness radiating across her chest, mainly occurs at night. She has a significant history of coronary artery disease. She has been maximized on medication to include Imdur extended release 120 daily, Brilinta and aspirin; also has chronic claudication of her lower extremities, mainly the left leg. She was recently hospitalized for a non -STEMI in November 2017, where she underwent heart catheterization, placement of an Impella device. She had an orbital rotational atherectomy of the left main coronary artery, also a PCI endovascular stenting with bare metal stents the left main, mid left, anterior descending and diagonal branches. Despite maximizing medications the patient has had continued angina; underwent catheterization today, which showed an ejection fraction of 50%, left main disease of 90% proximal LAD, 90%, the mid distal LAD 30%. The diagonal was 90%, the circumflex was 20%, the RCA 90% and the ramus 75%. We were consulted to evaluate for coronary artery bypass grafting. PAST MEDICAL HISTORY: Includes peripheral arterial disease, hypertension, coronary artery disease, hyperlipidemia, chronic anemia, chronic kidney disease stage III, diabetes mellitus with neuropathy, hypertension, hyperlipidemia, lumbar radiculopathy. PAST SURGICAL HISTORY: Includes recent bare-metal stent placement and November 2017, bilateral cataract surgery. She has had an atherectomy of the left leg for SFA occlusion; EGD where they found nonbleeding ulcer some gastritis, 02/23 pt developed chest pain last pm, was started on NTG gtt, pain is now resolved CTA neck pending this am carotid US : 1. Right Internal Carotid Artery: High-grade to critical stenosis internal carotid origin , 2. 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 I was made aware of this issue this morning at ~830. Objective: Vital Signs - 24 hr 02/27/18 10:00 02/27/18 11:00 02/27/18 12:00 Temperature 98.6 F Pulse Rate 80 83 89 Respiratory Rate 20 Blood Pressure 108/57 L Pulse Oximetry 96 02/27/18 13:00 02/27/18 13:03 02/27/18 14:00 Temperature Pulse Rate 94 H 90 95 H Respiratory Rate 18 Blood Pressure Pulse Oximetry 02/27/18 15:00 02/27/18 16:00 02/27/18 17:00 Temperature 98.1 F Pulse Rate 100 H 88 92 H Respiratory Rate 20 Blood Pressure 130/61 Pulse Oximetry 93 L 02/27/18 18:00 02/27/18 19:00 02/27/18 19:58 Temperature 97.6 F Pulse Rate 96 H 88 Respiratory Rate 18 Blood Pressure 170/81 H Pulse Oximetry 98 98 02/27/18 20:00 02/27/18 21:00 02/27/18 22:00 Temperature Pulse Rate 84 80 83 Respiratory Rate Blood Pressure Pulse Oximetry 98 02/27/18 23:00 02/27/18 23:56 02/28/18 00:00 Temperature 98.0 F Pulse Rate 91 H 72 Respiratory Rate 18 Blood Pressure 160/73 H 143/67 H Pulse Oximetry 98 02/28/18 01:00 02/28/18 02:00 02/28/18 03:00 Temperature 97.5 F L Pulse Rate 70 72 72 Respiratory Rate 18 Blood Pressure 146/74 H Pulse Oximetry 97 02/28/18 03:48 02/28/18 04:00 02/28/18 05:00 Temperature Pulse Rate 78 80 Respiratory Rate Blood Pressure Pulse Oximetry 95 11/24/18 06:00 02/28/18 07:00 02/28/18 08:00 Temperature Pulse Rate 78 76 Respiratory Rate Blood Pressure Pulse Oximetry 95 Labs: Laboratory Results - last 12 hr 02/28/18 08:04 POC Glucose 137 H Result Diagrams: 02/28/18 09:01 02/28/18 09:01 EKG: No significant changes since prior study Imaging: Carotid Doppler Study 02/20/18 12:58 CONCLUSION: 1. Right Internal Carotid Artery: High-grade to critical stenosis internal carotid origin 2. Left Internal Carotid Artery: High-grade stenosis internal carotid origin 3. CT angiography could be used further evaluate Lower Extremity Ultrasound 02/20/18 12:58 CONCLUSION: 1. Venous mapping as described above. Thrombosis of calf vessels on the left Venous Doppler Study 02/20/18 12:58 CONCLUSION: 1. Negative for deep venous thrombosis Neck CTA 02/23/18 00:00 CONCLUSION: Focal stenoses at the proximal internal carotid arteries bilaterally being worse on the right. It appears the right stenosis is approximately 60% and the left stenosis of approximately 50%. Chest X-Ray 02/26/18 05:00 CONCLUSION: 1. Endotracheal tube and nasogastric tube no longer seen. 2. Decrease in lung volumes. 3. Increase in bilateral lower lung zone opacity. Carotid Doppler Study 02/20/18 12:58 CONCLUSION: 1. Right Internal Carotid Artery: High-grade to critical stenosis internal carotid origin 2. Left Internal Carotid Artery: High-grade stenosis internal carotid origin 3. CT angiography could be used further evaluate Lower Extremity Ultrasound 02/20/18 12:58 CONCLUSION: 1. Venous mapping as described above. Thrombosis of calf vessels on the left Venous Doppler Study 02/20/18 12:58 CONCLUSION: 1. Negative for deep venous thrombosis Neck CTA 02/23/18 00:00 CONCLUSION: Focal stenoses at the proximal internal carotid arteries bilaterally being worse on the right. It appears the right stenosis is approximately 60% and the left stenosis of approximately 50%. Chest X-Ray 02/28/18 09:31 CONCLUSION: Mild bilateral pleural effusions. Improving aeration. There is minimal residual density at the bases. Cardiovascular: RRR Pulmonary: decreased BS bilaterally GI/: NABS, NT Incision: dry and intact - Plan (1) PAD (peripheral artery disease) Plan: ASA (2) Carotid stenosis, bilateral Plan: CTA neck resulted : right ICA 60% , left ICA 50% will need outpt f/u with vascular surgery (3) CAD (coronary artery disease) Plan: ASA, BB , statin , Heparin gtt (4) Diabetes mellitus Plan: insulin sliding scale HGB A1C 5.1 resume metformin post surgery (6) Hyperlipidemia Plan: on statin (8) S/P CABG x 4 Plan: ASA, statin , BB amiodarone gentle diuresis OOB PT on SHRADDHA at home was on Brilinta at home Reviewed all labs and CXR as well as ECG. D/C'd pain meds and amiodarone. Diurese Will continue to monitor for improvement. No evidence of any acute major cardiac or metabolic issues. CBC, CMP in AM (3) CAD (coronary artery disease) Qualifiers: Coronary Disease-Associated Artery/Lesion type: [place] artery [place] vs. transplanted heart: [place] heart Associated angina: with unstable angina Qualified Code(s): I25.110 - Atherosclerotic heart disease of [place] coronary artery with unstable angina pectoris
[2018-02-28 09:31] LABS: Baso # (Auto) 0.1 th/mm3 (0.0-0.2); Baso % (Auto) 0.4 % (0.0-2.0); Eos % (Auto) 0.1 % (0.0-4.0); Hematocrit 31.8 % (35.0-46.0); Hemoglobin 10.2 gm/dL (11.6-15.3); Lymph % (Auto) 7.4 % (9.0-44.0); Mean Corpuscular HGB Conc 32.2 % (32.0-36.0); Mean Corpuscular Hemoglobin 28.4 pg (27.0-34.0); Mean Corpuscular Volume 88.4 fL (80.0-100.0); Mean Platelet Volume 9.9 fL (7.0-11.0); Mono # (Auto) 1.1 th/mm3 (0.0-0.9); Mono % (Auto) 8.3 % (0.0-8.0); Neut # (Auto) 11.3 th/mm3 (1.8-7.7); Neut % (Auto) 83.8 % (16.0-70.0); Platelet Count 160 th/mm3 (150-450); White Blood Count 13.5 th/mm3 (4.0-11.0)
[2018-02-28 09:51] LABS: Calcium 8.6 mg/dL (8.5-10.1); Carbon Dioxide 26.8 meq/L (21.0-32.0); Potassium 4.6 meq/L (3.5-5.1)
--- NOTE | 2018-02-28 10:04 | XR ---
EXAM DATE: 02/28/2018 9:58 AM EST AGE/SEX: 77 years / Female INDICATIONS: Cardiac disease. CLINICAL DATA: This is the patient's subsequent encounter. Patient reports that signs and symptoms h ave been present for 1 day and indicates a pain score of 0/10. MEDICAL/SURGICAL HISTORY: . Hypertension. Hypercholesterolemia. Carcinoma, uterine. diabetes. . Coronary artery stent. CABG. . COMPARISON: . FINDINGS: There is a central line in place from the right internal jugular approach with the tip overlying the right atrium. The patient is status post sternotomy. The heart size is enlarged. There is increased d ensity at the bases bilaterally with blunting of the costophrenic angles. The mid and upper lungs are clear. The previously seen left chest tube and mediastinal drains have been removed. A pneumothorax is not seen. CONCLUSION: Mild bilateral pleural effusions. Improving aeration. There is minimal residual density at the bases. Electronically signed by: Danny Ruiz MD 02/28/2018 10:02 AM EST
--- NOTE | 2018-02-28 14:03 | ECG ---
Date Performed: 02/28/2018 Time Performed: 09:33:02 PTAGE: 77 years EKG: Sinus rhythm Poor R wave progression - probable normal variant Lateral T wave changes are nonspecific Borderline ECG PREVIOUS TRACING : 02/26/2018 04.19 Since the previous tracing, no significant change noted DOCTOR: Shine Gordillo Interpretating Date/Time 02/28/2018 14:01:45
[2018-03-01 04:09] LABS: Hematocrit 26.6 % (35.0-46.0); Hemoglobin 8.8 gm/dL (11.6-15.3); Mean Corpuscular Hemoglobin 28.8 pg (27.0-34.0); Mean Corpuscular Volume 87.3 fL (80.0-100.0); Mean Platelet Volume 9.5 fL (7.0-11.0); Platelet Count 164 th/mm3 (150-450); Red Blood Count 3.04 mil/mm3 (4.00-5.30); Red Cell Distribution Width 15.6 % (11.6-17.2); White Blood Count 9.4 th/mm3 (4.0-11.0)
--- NOTE | 2018-03-01 04:28 | XR ---
EXAM DATE: 03/01/2018 4:24 AM EST AGE/SEX: 77 years / Female INDICATIONS: Shortness of breath, possible pneumothorax. CLINICAL DATA: This is the patient's subsequent encounter. Patient reports that signs and symptoms h ave been present for 1 week and indicates a pain score of 5/10. MEDICAL/SURGICAL HISTORY: Hypertension. Hypercholesterolemia. Carcinoma, uterine. Diabetes. Coronary artery stent. CABG. COMPARISON: [facility] [place], CHEST 1V SINGLE AP, 02/28/2018. . FINDINGS: Right central line tip in right atrium. Previous sternotomy with cardiomegaly. Small effusions. Bilat eral mostly basilar airspace disease. CONCLUSION: Cardiomegaly with basilar airspace disease and pleural effusions similar to February 24. No pneumotho rax. Electronically signed by: Kvng Loredo MD 03/01/2018 4:27 AM EST
[2018-03-01 04:39] LABS: Alanine Aminotransferase 23 U/L (10-53); Albumin 2.3 g/dL (3.4-5.0); Alkaline Phosphatase 85 U/L (45-117); Anion Gap 5 meq/L (5-15); Aspartate Aminotransferase 26 U/L (15-37); Blood Urea Nitrogen 23 mg/dL (7-18); Carbon Dioxide 32.9 meq/L (21.0-32.0); Chloride 99 meq/L (98-107); Glomerular Filtration Rate 76 mL/min (>89); Glucose,Random 102 mg/dL (74-106); Potassium 3.7 meq/L (3.5-5.1); Sodium 137 meq/L (136-145); Total Protein 5.6 g/dL (6.4-8.2)
[2018-03-01] MEDS: Insulin NovoLOG Aspart Correctional Sugar Inj SQ SCH ×4 (09:00→20:55)
[2018-03-01] MEDS: Docusate Sodium 100 MG Capsule PO SCH ×2 (09:01→20:56)
[2018-03-01] MEDS: Metoprolol Tartrate 25 MG Tablet PO SCH ×2 (09:03→20:55)
[2018-03-01] MEDS: Polyethylene Glycol 3350 17 GM Packet PO SCH (09:04)
[2018-03-01] MEDS: Dorzolamide 2% Opth Drops 10 ML Bottle EACH EYE SCH ×3 (09:06→17:59)
[2018-03-01] MEDS: Brimonidine 0.2% Opth Drops 5 ML Bottle EACH EYE SCH ×3 (09:06→17:59)
[2018-03-01] MEDS: Timolol 0.5% Drops 5 ML Bottle EACH EYE SCH (09:06)
[2018-03-01] MEDS: Multivitamin/Minerals Therapeutic Tablet PO SCH (09:06)
--- NOTE | 2018-03-01 10:50 | P.PNCV ---
- Note CVT: Post Op Day #: 4 Subjective/Hospital Course: 77-year-old patient of Dr. Baldomero Robert; also Kani Tinajero, Primary Care; who was electively admitted for a cardiac catheterization complaining of intermittent chest pain, midsternal heaviness radiating across her chest, mainly occurs at night. She has a significant history of coronary artery disease. She has been maximized on medication to include Imdur extended release 120 daily, Brilinta and aspirin; also has chronic claudication of her lower extremities, mainly the left leg. She was recently hospitalized for a non -STEMI in November 2017, where she underwent heart catheterization, placement of an Impella device. She had an orbital rotational atherectomy of the left main coronary artery, also a PCI endovascular stenting with bare metal stents the left main, mid left, anterior descending and diagonal branches. Despite maximizing medications the patient has had continued angina; underwent catheterization today, which showed an ejection fraction of 50%, left main disease of 90% proximal LAD, 90%, the mid distal LAD 30%. The diagonal was 90%, the circumflex was 20%, the RCA 90% and the ramus 75%. We were consulted to evaluate for coronary artery bypass grafting. PAST MEDICAL HISTORY: Includes peripheral arterial disease, hypertension, coronary artery disease, hyperlipidemia, chronic anemia, chronic kidney disease stage III, diabetes mellitus with neuropathy, hypertension, hyperlipidemia, lumbar radiculopathy. PAST SURGICAL HISTORY: Includes recent bare-metal stent placement and November 2017, bilateral cataract surgery. She has had an atherectomy of the left leg for SFA occlusion; EGD where they found nonbleeding ulcer some gastritis, 02/23 pt developed chest pain last pm, was started on NTG gtt, pain is now resolved CTA neck pending this am carotid US : 1. Right Internal Carotid Artery: High-grade to critical stenosis internal carotid origin , 2. 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 I was made aware of this issue this morning at ~830. 03/01/18 Much better today. Nausea has resolved. Ambulating with assist. Objective: Vital Signs - 24 hr 02/28/18 11:00 02/28/18 12:00 02/28/18 13:00 Temperature 98 F Pulse Rate 73 73 71 Respiratory Rate 16 Blood Pressure 146/67 H Pulse Oximetry 93 L 02/28/18 14:00 02/28/18 15:00 02/28/18 16:00 Temperature 98.2 F Pulse Rate 70 77 73 Respiratory Rate 16 Blood Pressure 115/56 L Pulse Oximetry 91 L 02/28/18 17:00 02/28/18 19:00 02/28/18 20:00 Temperature Pulse Rate 77 80 72 Respiratory Rate Blood Pressure Pulse Oximetry 02/28/18 20:20 02/28/18 21:00 02/28/18 22:00 Temperature 98.4 F Pulse Rate 81 70 64 Respiratory Rate 18 Blood Pressure 150/65 H Pulse Oximetry 93 L 02/28/18 23:00 03/01/18 00:00 03/01/18 01:00 Temperature 98.2 F Pulse Rate 62 64 65 Respiratory Rate 16 Blood Pressure 104/52 L Pulse Oximetry 92 L 03/01/18 02:05 03/01/18 03:00 03/01/18 03:20 Temperature 98.2 F Pulse Rate 68 67 68 Respiratory Rate 16 Blood Pressure 126/59 L Pulse Oximetry 90 L 03/01/18 04:00 03/01/18 05:00 03/01/18 06:00 Temperature Pulse Rate 77 66 70 Respiratory Rate Blood Pressure Pulse Oximetry 03/01/18 08:36 Temperature 98.3 F Pulse Rate 82 Respiratory Rate 17 Blood Pressure 121/60 Pulse Oximetry 90 L Labs: Laboratory Results - last 12 hr 03/01/18 03/01/18 03/01/18 03:47 03:47 03:47 WBC 9.4 RBC 3.04 L Hgb 8.8 L Hct 26.6 L MCV 87.3 MCH 28.8 MCHC 33.0 RDW 15.6 Plt Count 164 MPV 9.5 Plt Funct P2Y12 Units 288 Sodium 137 Potassium 3.7 D Chloride 99 Carbon Dioxide 32.9 H Anion Gap 5 BUN 23 H Creatinine 0.74 Estimated GFR 76 L POC Glucose Random Glucose 102 Calcium 8.0 L Total Bilirubin 0.5 AST 26 ALT 23 Alkaline Phosphatase 85 Total Protein 5.6 L D Albumin 2.3 L 03/01/18 08:52 WBC RBC Hgb Hct MCV MCH MCHC RDW Plt Count MPV Plt Funct P2Y12 Units Sodium Potassium Chloride Carbon Dioxide Anion Gap BUN Creatinine Estimated GFR POC Glucose 240 H Random Glucose Calcium Total Bilirubin AST ALT Alkaline Phosphatase Total Protein Albumin Result Diagrams: 03/01/18 03:47 03/01/18 03:47 Imaging: Carotid Doppler Study 02/20/18 12:58 CONCLUSION: 1. Right Internal Carotid Artery: High-grade to critical stenosis internal carotid origin 2. Left Internal Carotid Artery: High-grade stenosis internal carotid origin 3. CT angiography could be used further evaluate Lower Extremity Ultrasound 02/20/18 12:58 CONCLUSION: 1. Venous mapping as described above. Thrombosis of calf vessels on the left Venous Doppler Study 02/20/18 12:58 CONCLUSION: 1. Negative for deep venous thrombosis Neck CTA 02/23/18 00:00 CONCLUSION: Focal stenoses at the proximal internal carotid arteries bilaterally being worse on the right. It appears the right stenosis is approximately 60% and the left stenosis of approximately 50%. Chest X-Ray 03/01/18 06:00 CONCLUSION: Cardiomegaly with basilar airspace disease and pleural effusions similar to February 24. No pneumothorax. Cardiovascular: RRR Telemetry: NSR Pulmonary: Decreased BS bilat GI/: NABS, NT Incision: dry and intact - Plan (1) PAD (peripheral artery disease) Plan: ASA (2) Carotid stenosis, bilateral Plan: CTA neck resulted : right ICA 60% , left ICA 50% will need outpt f/u with vascular surgery (3) CAD (coronary artery disease) Plan: ASA, BB , statin , Heparin gtt (4) Diabetes mellitus Plan: insulin sliding scale HGB A1C 5.1 resume metformin post surgery (6) Hyperlipidemia Plan: on statin (8) S/P CABG x 4 Plan: ASA, statin , BB amiodarone gentle diuresis OOB PT on SHRADDHA at home was on Brilinta at home Encourage ambulation, up to chair Diurese Stop Plavix, restart Brilinta in AM (3) CAD (coronary artery disease) Qualifiers: Coronary Disease-Associated Artery/Lesion type: [place] artery [place] vs. transplanted heart: [place] heart Associated angina: with unstable angina Qualified Code(s): I25.110 - Atherosclerotic heart disease of [place] coronary artery with unstable angina pectoris
[2018-03-02] MEDS: Brimonidine 0.2% Opth Drops 5 ML Bottle EACH EYE SCH ×3 (09:17→17:53)
[2018-03-02] MEDS: Timolol 0.5% Drops 5 ML Bottle EACH EYE SCH (09:18)
[2018-03-02] MEDS: Docusate Sodium 100 MG Capsule PO SCH (09:18)
[2018-03-02] MEDS: Polyethylene Glycol 3350 17 GM Packet PO SCH (09:18)
[2018-03-02] MEDS: Dorzolamide 2% Opth Drops 10 ML Bottle EACH EYE SCH ×3 (09:19→17:53)
[2018-03-02] MEDS: Insulin NovoLOG Aspart Correctional Sugar Inj SQ SCH ×4 (09:21→22:41)
[2018-03-02] MEDS: Metoprolol Tartrate 25 MG Tablet PO SCH ×2 (09:22→22:35)
[2018-03-02] MEDS: Multivitamin/Minerals Therapeutic Tablet PO SCH (09:22)
--- NOTE | 2018-03-02 11:26 | P.PNCV ---
- Note Subjective/Hospital Course: 77-year-old patient of Dr. Baldomero Robert; also Kain Tinajero, Primary Care; who was electively admitted for a cardiac catheterization complaining of intermittent chest pain, midsternal heaviness radiating across her chest, mainly occurs at night. She has a significant history of coronary artery disease. She has been maximized on medication to include Imdur extended release 120 daily, Brilinta and aspirin; also has chronic claudication of her lower extremities, mainly the left leg. She was recently hospitalized for a non -STEMI in November 2017, where she underwent heart catheterization, placement of an Impella device. She had an orbital rotational atherectomy of the left main coronary artery, also a PCI endovascular stenting with bare metal stents the left main, mid left, anterior descending and diagonal branches. Despite maximizing medications the patient has had continued angina; underwent catheterization today, which showed an ejection fraction of 50%, left main disease of 90% proximal LAD, 90%, the mid distal LAD 30%. The diagonal was 90%, the circumflex was 20%, the RCA 90% and the ramus 75%. We were consulted to evaluate for coronary artery bypass grafting. PAST MEDICAL HISTORY: Includes peripheral arterial disease, hypertension, coronary artery disease, hyperlipidemia, chronic anemia, chronic kidney disease stage III, diabetes mellitus with neuropathy, hypertension, hyperlipidemia, lumbar radiculopathy. PAST SURGICAL HISTORY: Includes recent bare-metal stent placement and November 2017, bilateral cataract surgery. She has had an atherectomy of the left leg for SFA occlusion; EGD where they found nonbleeding ulcer some gastritis, 02/23 pt developed chest pain last pm, was started on NTG gtt, pain is now resolved CTA neck pending this am carotid US : 1. Right Internal Carotid Artery: High-grade to critical stenosis internal carotid origin , 2. 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 I was made aware of this issue this morning at ~830. 03/01/18 Much better today. Nausea has resolved. Ambulating with assist. 03/02 no further diarrhea, no further nausea PT recommending rehab family indecisive pt on room air/ plan for dc in am issae Chirag Objective: Vital Signs - 24 hr 03/01/18 12:00 03/01/18 12:11 03/01/18 12:26 Temperature 98.4 F Pulse Rate 68 71 Respiratory Rate 16 Blood Pressure 111/84 Pulse Oximetry 93 L 93 L 03/01/18 13:00 03/01/18 14:00 03/01/18 15:00 Temperature Pulse Rate 62 72 62 Respiratory Rate Blood Pressure Pulse Oximetry 03/01/18 15:44 03/01/18 16:00 03/01/18 17:00 Temperature 97.5 F L Pulse Rate 60 64 72 Respiratory Rate 16 Blood Pressure 120/57 L Pulse Oximetry 96 03/01/18 17:50 03/01/18 18:00 03/01/18 19:00 Temperature Pulse Rate 65 64 63 Respiratory Rate Blood Pressure Pulse Oximetry 03/01/18 19:20 03/01/18 20:00 03/01/18 21:00 Temperature 97.5 F L Pulse Rate 62 70 72 Respiratory Rate 18 Blood Pressure 104/51 L Pulse Oximetry 94 L 03/01/18 22:00 03/01/18 23:00 03/01/18 23:35 Temperature 97.5 F L Pulse Rate 62 61 61 Respiratory Rate 18 Blood Pressure 94/55 L Pulse Oximetry 94 L 03/02/18 00:00 03/02/18 01:00 03/02/18 01:57 Temperature Pulse Rate 62 62 61 Respiratory Rate Blood Pressure Pulse Oximetry 03/02/18 03:00 03/02/18 04:00 03/02/18 05:00 Temperature 97.5 F L Pulse Rate 61 62 64 Respiratory Rate 16 Blood Pressure 115/58 L Pulse Oximetry 91 L 03/02/18 05:57 03/02/18 07:00 03/02/18 08:00 Temperature 98 F Pulse Rate 67 85 72 Respiratory Rate 16 Blood Pressure 126/60 Pulse Oximetry 94 L 03/02/18 09:00 03/02/18 10:00 Temperature Pulse Rate 74 77 Respiratory Rate Blood Pressure Pulse Oximetry GENERAL: A&O x 3 SKIN: Warm and dry. prevena dressing to chest HEAD: Normocephalic. EYES: No scleral icterus. No injection or drainage. NECK: Supple, trachea midline. No JVD or lymphadenopathy. CARDIOVASCULAR: Regular rate and rhythm without murmurs, gallops, or rubs. RESPIRATORY: Breath sounds equal bilaterally. No accessory muscle use. diminished in bases GASTROINTESTINAL: Abdomen soft, non-tender, nondistended. MUSCULOSKELETAL: No cyanosis, or edema. BACK: Nontender without obvious deformity. No CVA tenderness. Labs: Laboratory Results - last 12 hr 03/02/18 08:30 POC Glucose 185 H Result Diagrams: 03/01/18 03:47 03/01/18 03:47 Telemetry: NSR - Plan (1) PAD (peripheral artery disease) Plan: ASA (2) Carotid stenosis, bilateral Plan: CTA neck resulted : right ICA 60% , left ICA 50% will need outpt f/u with vascular surgery (3) CAD (coronary artery disease) Plan: ASA, BB , statin , OOB family now trying to decide on rehab vs HHC (4) Diabetes mellitus Plan: insulin sliding scale HGB A1C 5.1 metformin (6) Hyperlipidemia Plan: on statin (7) Normocytic anemia Plan: resume iron supplement (8) S/P CABG x 4 Plan: ASA, statin , BB gentle diuresis OOB PT on SHRADDHA at home was on Brilinta at home (3) CAD (coronary artery disease) Qualifiers: Coronary Disease-Associated Artery/Lesion type: [place] artery [place] vs. transplanted heart: [place] heart Associated angina: with unstable angina Qualified Code(s): I25.110 - Atherosclerotic heart disease of [place] coronary artery with unstable angina pectoris
[2018-03-03 06:14] LABS: Carbon Dioxide 31.5 meq/L (21.0-32.0); Magnesium 1.9 mg/dL (1.5-2.5); Potassium 3.6 meq/L (3.5-5.1)
[2018-03-03] MEDS: Metoprolol Tartrate 25 MG Tablet PO SCH ×2 (09:30→21:19)
[2018-03-03] MEDS: Furosemide 40 MG Tablet PO SCH (09:30)
[2018-03-03] MEDS: Multivitamin/Minerals Therapeutic Tablet PO SCH (09:31)
[2018-03-03] MEDS: Polyethylene Glycol 3350 17 GM Packet PO SCH (09:31)
[2018-03-03] MEDS: Brimonidine 0.2% Opth Drops 5 ML Bottle EACH EYE SCH ×3 (09:32→17:33)
[2018-03-03] MEDS: Timolol 0.5% Drops 5 ML Bottle EACH EYE SCH (09:32)
[2018-03-03] MEDS: Dorzolamide 2% Opth Drops 10 ML Bottle EACH EYE SCH ×3 (09:32→17:33)
[2018-03-03] MEDS: Insulin NovoLOG Aspart Correctional Sugar Inj SQ SCH ×3 (09:33→16:34)
[2018-03-03] MEDS: Mag Sulf 1 gm/100 ml Premix 100 ML IV.SIG SCH ×2 (09:43→12:46)
[2018-03-03] MEDS: Polysaccharide Iron Complex 150 MG Capsule PO SCH (09:43)
--- NOTE | 2018-03-03 15:12 | P.DS ---
Date of admission: 02/23/18 13:40 Primary care physician: Kain Tinajero Attending physician on discharge: Arabella Avila Anticipated date of discharge: 03/03/18 Brief History from admission: 77-year-old patient of Dr. Baldomero Robert; also Kain Tinajero, Primary Care; who was electively admitted for a cardiac catheterization complaining of intermittent chest pain, midsternal heaviness radiating across her chest, mainly occurs at night. She has a significant history of coronary artery disease. She has been maximized on medication to include Imdur extended release 120 daily, Brilinta and aspirin; also has chronic claudication of her lower extremities, mainly the left leg. She was recently hospitalized for a non -STEMI in November 2017, where she underwent heart catheterization, placement of an Impella device. She had an orbital rotational atherectomy of the left main coronary artery, also a PCI endovascular stenting with bare metal stents the left main, mid left, anterior descending and diagonal branches. Despite maximizing medications the patient has had continued angina; underwent catheterization today, which showed an ejection fraction of 50%, left main disease of 90% proximal LAD, 90%, the mid distal LAD 30%. The diagonal was 90%, the circumflex was 20%, the RCA 90% and the ramus 75%. We were consulted to evaluate for coronary artery bypass grafting. PAST MEDICAL HISTORY: Includes peripheral arterial disease, hypertension, coronary artery disease, hyperlipidemia, chronic anemia, chronic kidney disease stage III, diabetes mellitus with neuropathy, hypertension, hyperlipidemia, lumbar radiculopathy. PAST SURGICAL HISTORY: Includes recent bare-metal stent placement and November 2017, bilateral cataract surgery. She has had an atherectomy of the left leg for SFA occlusion; EGD where they found nonbleeding ulcer some gastritis, Patient update on day of discharge: pt on room air, feels better today rhythm stable DS: Diagnosis - Discharge Diagnosis (1) PAD (peripheral artery disease) Status: Acute (2) Carotid stenosis, bilateral Status: Acute (3) CAD (coronary artery disease) Status: Chronic (4) Diabetes mellitus Status: Chronic (5) HTN (hypertension) Status: Chronic (6) Hyperlipidemia Status: Chronic (7) Normocytic anemia Status: Acute (8) S/P CABG x 4 Status: Acute DS: Medications - Discharge Medications Prescriptions: acetaminophen [Tylenol] 650 mg PO Q4H PRN #30 cap PRN Reason: Acute Pain furosemide [Lasix] 20 mg PO DAILY #30 tab potassium chloride 8 meq PO DAILY #30 cap DS: Summary Hospital Course: 02/23 pt developed chest pain last pm, was started on NTG gtt, pain is now resolved CTA neck pending this am carotid US : 1. Right Internal Carotid Artery: High-grade to critical stenosis internal carotid origin , 2. 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 I was made aware of this issue this morning at ~830. 03/01/18 Much better today. Nausea has resolved. Ambulating with assist. 03/02 no further diarrhea, no further nausea PT recommending rehab family indecisive pt on room air/ plan for dc in am resume Brilinta - Time Spent with Patient Total time spent providing and/or coordinating discharge services: Greater than 30 minutes - Quality: VTE Deep Vein Thrombosis/Pulmonary Embolism Present on Admission: No Exam Vital signs: Vital Signs 03/02/18 16:00 03/02/18 17:00 03/02/18 17:49 Temperature Pulse Rate 71 75 74 Respiratory Rate Blood Pressure Pulse Oximetry 03/02/18 19:00 03/02/18 20:00 03/02/18 21:00 Temperature 97.8 F Pulse Rate 84 78 69 Respiratory Rate 18 Blood Pressure 145/62 H Pulse Oximetry 94 L 03/02/18 22:00 03/02/18 23:00 03/03/18 00:00 Temperature 98.1 F Pulse Rate 72 80 69 Respiratory Rate 20 Blood Pressure 139/64 Pulse Oximetry 95 03/03/18 01:00 03/03/18 02:00 03/03/18 03:00 Temperature 97.9 F Pulse Rate 71 74 86 Respiratory Rate 22 Blood Pressure 128/62 Pulse Oximetry 93 L 03/03/18 04:00 03/03/18 05:15 03/03/18 07:00 Temperature 98.2 F Pulse Rate 83 77 83 Respiratory Rate 18 Blood Pressure 152/66 H Pulse Oximetry 95 03/03/18 08:00 03/03/18 09:00 03/03/18 10:00 Temperature Pulse Rate 70 78 81 Respiratory Rate Blood Pressure Pulse Oximetry 03/03/18 11:00 03/03/18 12:00 03/03/18 13:00 Temperature 98.5 F Pulse Rate 69 72 75 Respiratory Rate 18 Blood Pressure 126/60 Pulse Oximetry 98 03/03/18 14:00 Temperature Pulse Rate 70 Respiratory Rate Blood Pressure Pulse Oximetry Intake & Output 03/02/18 03/03/18 03/03/18 18:59 06:59 18:59 Intake Total 720 / 720 240 / 240 200 / 200 Output Total 350 / 350 Balance 370 / 370 240 / 240 200 / 200 Weight 50 kg Intake: IV 200 / 200 Magnesium Sulfate 1 gm/D5W 100 200 / 200 ml Premix 100 ML @ 100 mls/hr IV.SIG Q1H MARIANO Rx#:[id number] Oral 720 / 720 240 / 240 Output: Urine 350 / 350 Other: # Voids 3 Date of Last Bowel Movement 03/03/18 # Bowel Movements 3 - Constitutional no acute distress - Routine HEENT Exam Head: Present: normocephalic Eye: Present: EOMI, PERRL, normal accommodation - Routine Neck Exam Present: supple, full ROM - Routine Chest/Breast/Axilla Exam Chest wall: Present: tenderness - Routine Respiratory Exam Present: CTA bilaterally - Routine Cardiovascular Exam Present: RRR, S1, S2 - Routine Abdominal Exam Present: soft, normoactive bowel sounds - Routine Extremities Exam Present: full ROM, pulses intact - Routine Skin Exam Present: intact, wounds Comments: sternal incision intact and well approximated - Routine Neurological Exam Present: alert, oriented X3 Results Procedures completed during hospitalization: Date of procedure: 02/25/18 Procedure: Pump-assisted CABG x 4 EDUARDO to LAd - good SVG to PDA - good SVG to RI - good SVG to D1 - good EVH (bilateral) TYRELL Completed studies during hospitalization: Pending at discharge 02/25/18 15:06 Surgical [PTH] Routine Labs on day of discharge: Labs from last 24 hours 03/03/18 03/03/18 03/03/18 15:08 09:29 05:01 Sodium 138 Potassium 3.6 Chloride 100 Carbon Dioxide 31.5 Anion Gap 7 BUN 20 H Creatinine 0.89 Estimated GFR 61 L POC Glucose Pending 194 H Random Glucose 115 H Calcium 8.0 L Magnesium 1.9 03/02/18 03/02/18 22:40 17:24 Sodium Potassium Chloride Carbon Dioxide Anion Gap BUN Creatinine Estimated GFR POC Glucose 129 H 151 H Random Glucose Calcium Magnesium - Impressions ITS Impressions Carotid Doppler Study 02/20/18 12:58 CONCLUSION: 1. Right Internal Carotid Artery: High-grade to critical stenosis internal carotid origin 2. Left Internal Carotid Artery: High-grade stenosis internal carotid origin 3. CT angiography could be used further evaluate Lower Extremity Ultrasound 02/20/18 12:58 CONCLUSION: 1. Venous mapping as described above. Thrombosis of calf vessels on the left Venous Doppler Study 02/20/18 12:58 CONCLUSION: 1. Negative for deep venous thrombosis Neck CTA 02/23/18 00:00 CONCLUSION: Focal stenoses at the proximal internal carotid arteries bilaterally being worse on the right. It appears the right stenosis is approximately 60% and the left stenosis of approximately 50%. Chest X-Ray 03/01/18 06:00 CONCLUSION: Cardiomegaly with basilar airspace disease and pleural effusions similar to February 24. No pneumothorax. Discharge Plan - Discharge Disposition Patient Disposition: Discharge to SNF - Discharge Condition Condition: Good - Discharge Order Discharge Orders: Discharge Order (Routine); Ordered 03/03/18 Ordered By: Suri Dos Santos - Discharge Details Anticipated Discharge Date: 03/03/18 - Physicians Team Primary Care Provider: Kain Tinajero Attending Provider: Arabella Avila Other Providers: Arabella Avila MD ; [facility] - Rxs /Orders / Referrals /Forms Prescriptions: New acetaminophen [Tylenol] 325 mg Capsule 650 mg PO Q4H PRN (Reason: Acute Pain) Qty: 30 RF: 0 docusate sodium [DOK] 100 mg Capsule 100 mg PO BID PRN (Reason: constipation) Qty: 30 RF: 0 furosemide [Lasix] 20 mg Tablet 20 mg PO DAILY Qty: 30 RF: 1 metoprolol tartrate 25 mg Tablet 25 mg PO BID RF: 0 potassium chloride 8 mEq Capsule, Extended Release 8 meq PO DAILY Qty: 30 RF: 1 pravastatin 80 mg Tablet 80 mg PO DAILY@1800 RF: 0 Continue albuterol sulfate [Ventolin HFA] 90 mcg/actuation Hfa Aerosol Inhaler 2 puff INHALATION Q4-6H PRN (Reason: Shortness Of Breath) aspirin [Aspirin Low Dose] 81 mg Tablet,Delayed Release (Dr/Ec) 81 mg PO DAILY brimonidine 0.2 % Drops 1 drp OPHTHALMIC (EYE) TID clonidine 0.2 mg/24 hr Patch Weekly 1 patch TRANSDERMAL QWEEK dorzolamide 2 % Drops 1 drp OPHTHALMIC (EYE) TID ferrous sulfate, dried [Slow Release Iron] 160 mg (50 mg iron) Tablet Extended Release 160 mg PO DAILY loratadine [Claritin] 10 mg Tablet 10 mg PO DAILY PRN (Reason: Allergy Symptoms) metformin 500 mg Tablet 500 mg PO BID pantoprazole 20 mg Tablet,Delayed Release (Dr/Ec) 20 mg PO DAILY ticagrelor [Brilinta] 90 mg Tablet 90 mg PO BID timolol 0.5 % Drops 1 drop EACH EYE DAILY Discontinued isosorbide mononitrate 60 mg Tablet Extended Release 24 Hr 120 mg PO DAILY lisinopril 20 mg Tablet 20 mg PO DAILY metoprolol tartrate 50 mg Tablet 50 mg PO BID nitroglycerin 0.4 mg Tablet, Sublingual 0.4 mg SUBLINGUAL Q5-15M PRN (Reason: Chest Pain) simvastatin 40 mg Tablet 40 mg PO QPM ticagrelor [Brilinta] 90 mg Tablet 90 mg PO BID Referrals: Kain Tinajero D.O. [Primary Care Provider] - See Instructions ( Your appointment has been scheduled for [03/12/18] at [8:45 am] If you cannot make this appointment, please call the office to reschedule ) Suri Dos Santos [[facility] RN PRACTITIONER] - See Instructions ( Your appointment has been scheduled for [03/26/18] at [11:00 am] If you cannot make this appointment, please call the office to reschedule ) Ti Posey MD [Physician] - See Instructions ( Your appointment has been scheduled for [04/08/18] at [9:00 am] If you cannot make this appointment, please call the office to reschedule ) Baldomero Robert MD [Physician] - See Instructions ( Your appointment has been scheduled for [03/24/18] at [1:50 pm] If you cannot make this appointment, please call the office to reschedule ) - Discharge Instructions Patient Printed Instructions: Ticagrelor (By mouth), Acute Diarrhea (GEN), Low- Sodium Diet (DC), Skin Adhesive Care (DC), Sternal Precautions (GEN), Heart Catheterization (DC), Coronary Artery Bypass Graft (DC), Coronary Artery Bypass Graft (GEN), Acute Wounds (DC) Additional Instructions: Incentive spirometry Q1 hr x 10, while awake, also use acapella device hourly whole awake Sternal Breast Bone Precautions: NO pushing or pulling, ( pt must use sternal pillow to support chest with all activities and with coughing ( takes up to 3 months breast bone to heal ) All females to wear sternal bra , launder as needed Daily incision care: ok to shower daily, no tub bath. Wash all incisions with liquid dial soap, clean wash cloth to each site, rinse and pat dry. Observe for any signs of infection, such as drainage which is dark yellow, richards, green or foul smelling. Immediately report to the surgeon any drainage from the chest incision, or legs, and for any abnormal drainage from the chest tube sites. Notify surgeon if any temp >101.5 degrees F. When specialty dressing removed/ or if you do not have one, continue to shower daily as above, then rinse and pat incision dry and paint with betadine daily x 5 days. Allow steri strips to fall off if you have any. Avoid lotions, creams, salves, oils, etc. for the first month F/U appointment: as per DC instructions: PCP in 2 weeks, CV surgeon 2 weeks, Lead Burner Apprentice 3-4 weeks For any questions regarding incisions/ dressing / meds / post op care or above Symptoms, Friday 8am-5pm Heart & Vascular Surgery Office ( Dr. Peters & Dr. Avila), After Hours / Nights (5pm -8am) Weekends and Holidays Please call [facility] Cardiac Intermediate [facility] Unit ([facility]) Charge Nurse
[2018-03-04] MEDS: Insulin NovoLOG Aspart Correctional Sugar Inj SQ SCH ×5 (01:12→21:32)
[2018-03-04 05:04] LABS: Baso % (Auto) 0.4 % (0.0-2.0); Eos # (Auto) 0.1 th/mm3 (0.0-0.4); Eos % (Auto) 0.9 % (0.0-4.0); Hematocrit 30.5 % (35.0-46.0); Hemoglobin 10.7 gm/dL (11.6-15.3); Lymph # (Auto) 1.8 th/mm3 (1.0-4.8); Mean Corpuscular Hemoglobin 29.7 pg (27.0-34.0); Mean Platelet Volume 8.9 fL (7.0-11.0); Mono # (Auto) 0.8 th/mm3 (0.0-0.9); Mono % (Auto) 7.9 % (0.0-8.0); Neut # (Auto) 7.7 th/mm3 (1.8-7.7); Neut % (Auto) 73.8 % (16.0-70.0); Platelet Count 285 th/mm3 (150-450); Red Blood Count 3.59 mil/mm3 (4.00-5.30); Red Cell Distribution Width 15.5 % (11.6-17.2); White Blood Count 10.4 th/mm3 (4.0-11.0)
[2018-03-04 05:31] LABS: Albumin 2.6 g/dL (3.4-5.0); Anion Gap 7 meq/L (5-15); Aspartate Aminotransferase 19 U/L (15-37); Blood Urea Nitrogen 18 mg/dL (7-18); Calcium 8.3 mg/dL (8.5-10.1); Carbon Dioxide 29.8 meq/L (21.0-32.0); Chloride 100 meq/L (98-107); Glomerular Filtration Rate 62 mL/min (>89); Glucose,Random 99 mg/dL (74-106); Lipase 1169 U/L (73-393); Potassium 4.2 meq/L (3.5-5.1); Sodium 137 meq/L (136-145)
[2018-03-04 05:42] LABS: Alanine Aminotransferase 31 U/L (10-53); Alkaline Phosphatase 116 U/L (45-117); Total Protein 6.2 g/dL (6.4-8.2)
[2018-03-04 05:43] LABS: Amylase 143 U/L (25-115)
--- NOTE | 2018-03-04 09:02 | US ---
EXAM DATE: 03/04/2018 8:54 AM EST AGE/SEX: 77 years / Female INDICATIONS: Elevated lipase and amylase. CLINICAL DATA: This is the patient's initial encounter. Patient reports that signs and symptoms have been present for 1 day and indicates a pain score of 0/10. MEDICAL/SURGICAL HISTORY: Diabetes. Carcinoma, uterine. Peripheral artery disease. Coronary artery disease. Glaucoma. Hyperlipidemia. HTN. Peripheral vascular disease. Coronary artery stent. CABG. COMPARISON: No prior exams available for comparison. MEASUREMENTS: Liver:__ 13.4 cm. Common Bile Duct:__ 7mm. FINDINGS: Liver: Normal echotexture without focal lesion or ductal dilatation. Portal Vein: Hepatopedal flow seen in portal vein. Common Duct: No intraluminal mass or stone visualized. Gallbladder: Demonstrates no wall thickening or pericholecystic fluid. Stones visualized. Pancreas: The echotexture of the pancreas is somewhat heterogeneous. No pseudocyst is seen. The panc reatic duct is normal in caliber. Right Kidney: There are multiple small simple cysts seen within the right kidney. Other: None. CONCLUSION: 1. There are gallstones evident in the dependent portion of the gallbladder. No gallbladder wall thi ckening or pericholecystic fluid is identified. 2. Nonspecific, heterogeneous echotexture of the pancreas without focal mass. No pseudocyst identifi ed. No pancreatic ductal dilation identified. Electronically signed by: Jonathan Guerrier MD 03/04/2018 9:00 AM EST
[2018-03-04] MEDS: Furosemide 40 MG Tablet PO SCH (10:23)
[2018-03-04] MEDS: Multivitamin/Minerals Therapeutic Tablet PO SCH (10:23)
[2018-03-04] MEDS: Metoprolol Tartrate 25 MG Tablet PO SCH ×2 (10:24→21:31)
[2018-03-04] MEDS: Brimonidine 0.2% Opth Drops 5 ML Bottle EACH EYE SCH ×3 (10:24→18:09)
[2018-03-04] MEDS: Polysaccharide Iron Complex 150 MG Capsule PO SCH (10:24)
[2018-03-04] MEDS: Timolol 0.5% Drops 5 ML Bottle EACH EYE SCH (10:25)
[2018-03-04] MEDS: Dorzolamide 2% Opth Drops 10 ML Bottle EACH EYE SCH ×3 (10:25→18:10)
[2018-03-04] MEDS: Polyethylene Glycol 3350 17 GM Packet PO SCH (10:25)
--- NOTE | 2018-03-04 11:55 | P.CONGI ---
History of Present Illness Consult date: 03/04/18 Consult reason: Elevated lipase Chief complaint: R07.9 History of Present Illness: This is a pleasant 77 y/o female with CAD/hx of PR in 11/2017, HTN, PAD, hyperlipidemia, and diabetes mellitus. Pt was admitted for evaluation by Cardiothoracic surgery for CABG which was performed on . Gi consulted for elevated lipase. Lipase 1169, amylase 143, LFTs wnl. Pt denies previous hx of pancreatitis, denies fever, chills, nausea, vomiting or abd pain. Denies alcohol intake. Pt currently on Brilinta. Gallbladder Ultrasound 03/04/18 1. There are gallstones evident in the dependent portion of the gallbladder. No gallbladder wall thickening or pericholecystic fluid is identified. 2. Nonspecific, heterogeneous echotexture of the pancreas without focal mass. No pseudocyst identified. No pancreatic ductal dilation identified. EGD on 11/08/17 --->nonbleeding duodenal ulcer, gastritis, gastric erosion, and esophagitis, benign bx. Pt has been on Protonix and Sucralfate <Lele Benton - Last Filed: 03/04/18 11:30> PMFSH - History History Provided By: Patient - Medical History Medical History: Medical History (Last Reviewed 03/02/18 @ 08:43 by Matt Sorto PT) CAD (coronary artery disease) Diabetes Glaucoma HLD (hyperlipidemia) HTN (hypertension) PAD (peripheral artery disease) PVD (peripheral vascular disease) Uterine cancer - Surgical History Surgical History: Surgical History (Last Reviewed 02/26/18 @ 09:09 by Matt Olivares) Stented coronary artery - Tobacco History Second Hand Smoke Exposure: No Tobacco Use In Past 30 Days: No Smoking Status: Former smoker Tobacco Type: Cigarettes - Alcohol History How Often Do You Have a Drink Containing Alcohol: Never - Substance Use History Substance History: No History of Abuse - Travel History Recent Travel in the [place] Within the Last 8 Weeks: No Recent Travel Out of the Country Within the Last 8 Weeks: No - Immunization History Tetanus Immunization: Never Vaccinated Hx Influenza Vaccine This Season: Yes <Lele Benton - Last Filed: 03/04/18 11:30> - Medical History Medical History: Medical History (Last Reviewed 03/02/18 @ 08:43 by Matt S Kapelka, PT) CAD (coronary artery disease) Diabetes Glaucoma HLD (hyperlipidemia) HTN (hypertension) PAD (peripheral artery disease) PVD (peripheral vascular disease) Uterine cancer - Surgical History Surgical History: Surgical History (Last Reviewed 02/26/18 @ 09:09 by Matt Olivares) Stented coronary artery <Devaughn Chen - Last Filed: 03/04/18 15:44> Medications and Allergies Active Medications: Active Medications Al Hydroxide/Mg Hydroxide (Milk Of Magnesia Liq) 30 ml PO DAILY PRN PRN Reason: CONSTIPATION Al Hydroxide/Mg Hydroxide (Milk Of Magnesia Liq) 30 ml PO DAILY [facility] Last Admin: 03/02/18 09:18 Dose: Not Given Albuterol (Duoneb Neb (Prn)) 1 ampul NEB Q2HR NEB PRN PRN Reason: WHEEZING Last Admin: 02/26/18 09:46 Dose: 1 ampul Aspirin (Ecotrin) 81 mg PO DAILY [facility] Last Admin: 03/04/18 10:23 Dose: 81 mg Bisacodyl (Dulcolax Supp) 10 mg RECTAL PRN PRN PRN Reason: SEE LABEL COMMENTS Brimonidine Tartrate (Alphagan 0.2% Opth Drops) 1 drops EACH EYE TID [facility] Last Admin: 03/04/18 10:24 Dose: 1 drops Clonidine HCl (Catapress-Tts 0.2 Mg Patch.7d) 1 patch T-DERMAL WEEKLY [facility] Dextrose (D50w Vial) 50 ml IV.PUSH UNSCH PRN PRN Reason: PER HYPOGLYCEMIA PROTOCOL Docusate Sodium (Colace) 100 mg PO BID [facility] Last Admin: 03/02/18 09:18 Dose: Not Given Dorzolamide HCl (Trusopt 2% Opth Drops) 1 drop EACH EYE TID [facility] Last Admin: 03/04/18 10:25 Dose: 1 drop Furosemide (Lasix) 40 mg PO DAILY [facility] Last Admin: 03/04/18 10:23 Dose: 40 mg Glucagon (Glucagon Inj) 1 mg OTHER PRN PRN PRN Reason: For hypoglycemia Sodium Chloride (Ns Inj) 500 mls @ 30 mls/hr IV.SIG .Q10H [facility] Last Admin: 02/26/18 19:02 Dose: Not Given Insulin Aspart (Novolog Insulin Correctional Sugar Inj) 0 unit SQ ACHS CORRECT SUGARS MARIANO; Protocol Last Admin: 03/04/18 09:50 Dose: Not Given Loratadine (Claritin) 10 mg PO DAILY PRN PRN Reason: ALLERGY SYMPTOMS [facility] Last Admin: 03/04/18 10:23 Dose: 500 mg Metoprolol Tartrate (Lopressor Inj) 2.5 mg IV.PUSH Q1H PRN PRN Reason: SEE LABEL COMMENTS Last Admin: 02/27/18 23:49 Dose: 2.5 mg Metoprolol Tartrate (Lopressor) 25 mg PO BID [facility] Last Admin: 03/04/18 10:24 Dose: 25 mg Multivitamins/Minerals (Theragran-M) 1 tab PO DAILY [facility] Last Admin: 03/04/18 10:23 Dose: 1 tab Ondansetron HCl (Zofran Inj) 4 mg IV.PUSH Q6H PRN PRN Reason: NAUSEA OR VOMITING Last Admin: 03/03/18 17:31 Dose: 4 mg Pantoprazole Sodium (Protonix) 40 mg PO DAILY@06 [facility] Last Admin: 03/04/18 06:35 Dose: 40 mg Patch Removal (Remove Old Patch) 1 each T-DERMAL WEEKLY [facility] Last Admin: 02/27/18 18:46 Dose: 1 each Polyethylene Glycol (Miralax) 17 gm PO DAILY [facility] Last Admin: 03/04/18 10:25 Dose: Not Given Polysaccharide Iron Complex (Nu-Iron) 150 mg PO DAILY [facility] Last Admin: 03/04/18 10:24 Dose: 150 mg Potassium Chloride (Klor-Con 10) 20 meq PO DAILY [facility] Last Admin: 03/04/18 10:24 Dose: 20 meq Pravastatin Sodium (Pravachol) 80 mg PO DAILY@1800 [facility] Last Admin: 03/03/18 17:33 Dose: 80 mg Sennosides (Senokot) 8.6 mg PO HS [facility] Last Admin: 03/03/18 21:23 Dose: Not Given Sodium Biphosphate/Sodium Phosphate (Fleets Enema (Adult)) 118 ml RECTAL UNSCH PRN PRN Reason: SEE LABEL COMMENTS Sodium Chloride (Ns Flush) 2 ml IV.FLUSH BID [facility] Last Admin: 03/04/18 10:25 Dose: 2 ml Sodium Chloride (Ns Flush) 2 ml IV.FLUSH PRN PRN PRN Reason: FLUSH AFTER USING IV ACCESS Ticagrelor (Brilinta) 90 mg PO BID [facility] Last Admin: 03/04/18 10:24 Dose: 90 mg Timolol Maleate (Timoptic 0.5% Drops) 1 drops EACH EYE DAILY [facility] Last Admin: 03/04/18 10:25 Dose: 1 drops <Lele Benton - Last Filed: 03/04/18 11:30> Active Medications: Active Medications Al Hydroxide/Mg Hydroxide (Milk Of Magnesia Liq) 30 ml PO DAILY PRN PRN Reason: CONSTIPATION Al Hydroxide/Mg Hydroxide (Milk Of Magnesia Liq) 30 ml PO DAILY [facility] Last Admin: 03/02/18 09:18 Dose: Not Given Albuterol (Duoneb Neb (Prn)) 1 ampul NEB Q2HR NEB PRN PRN Reason: WHEEZING Last Admin: 02/26/18 09:46 Dose: 1 ampul Aspirin (Ecotrin) 81 mg PO DAILY [facility] Last Admin: 03/04/18 10:23 Dose: 81 mg Bisacodyl (Dulcolax Supp) 10 mg RECTAL PRN PRN PRN Reason: SEE LABEL COMMENTS Brimonidine Tartrate (Alphagan 0.2% Opth Drops) 1 drops EACH EYE TID [facility] Last Admin: 03/04/18 12:25 Dose: 1 drops Clonidine HCl (Catapress-Tts 0.2 Mg Patch.7d) 1 patch T-DERMAL WEEKLY [facility] Dextrose (D50w Vial) 50 ml IV.PUSH UNSCH PRN PRN Reason: PER HYPOGLYCEMIA PROTOCOL Docusate Sodium (Colace) 100 mg PO BID [facility] Last Admin: 03/02/18 09:18 Dose: Not Given Dorzolamide HCl (Trusopt 2% Opth Drops) 1 drop EACH EYE TID [facility] Last Admin: 03/04/18 12:25 Dose: 1 drop Furosemide (Lasix) 40 mg PO DAILY [facility] Last Admin: 03/04/18 10:23 Dose: 40 mg Glucagon (Glucagon Inj) 1 mg OTHER PRN PRN PRN Reason: For hypoglycemia Sodium Chloride (Ns Inj) 500 mls @ 30 mls/hr IV.SIG .Q10H [facility] Last Admin: 02/26/18 19:02 Dose: Not Given Insulin Aspart (Novolog Insulin Correctional Sugar Inj) 0 unit SQ ACHS CORRECT SUGARS [facility]; Protocol Last Admin: 03/04/18 12:25 Dose: 9 unit Loratadine (Claritin) 10 mg PO DAILY PRN PRN Reason: ALLERGY SYMPTOMS [facility] Last Admin: 03/04/18 10:23 Dose: 500 mg Metoprolol Tartrate (Lopressor Inj) 2.5 mg IV.PUSH Q1H PRN PRN Reason: SEE LABEL COMMENTS Last Admin: 02/27/18 23:49 Dose: 2.5 mg Metoprolol Tartrate (Lopressor) 25 mg PO BID [facility] Last Admin: 03/04/18 10:24 Dose: 25 mg Multivitamins/Minerals (Theragran-M) 1 tab PO DAILY [facility] Last Admin: 03/04/18 10:23 Dose: 1 tab Ondansetron HCl (Zofran Inj) 4 mg IV.PUSH Q6H PRN PRN Reason: NAUSEA OR VOMITING Last Admin: 03/03/18 17:31 Dose: 4 mg Pantoprazole Sodium (Protonix) 40 mg PO DAILY@06 [facility] Last Admin: 03/04/18 06:35 Dose: 40 mg Patch Removal (Remove Old Patch) 1 each T-DERMAL WEEKLY [facility] Last Admin: 02/27/18 18:46 Dose: 1 each Polyethylene Glycol (Miralax) 17 gm PO DAILY [facility] Last Admin: 03/04/18 10:25 Dose: Not Given Polysaccharide Iron Complex (Nu-Iron) 150 mg PO DAILY [facility] Last Admin: 03/04/18 10:24 Dose: 150 mg Potassium Chloride (Klor-Con 10) 20 meq PO DAILY [facility] Last Admin: 03/04/18 10:24 Dose: 20 meq Pravastatin Sodium (Pravachol) 80 mg PO DAILY@1800 [facility] Last Admin: 03/03/18 17:33 Dose: 80 mg Sennosides (Senokot) 8.6 mg PO HS [facility] Last Admin: 03/03/18 21:23 Dose: Not Given Sodium Biphosphate/Sodium Phosphate (Fleets Enema (Adult)) 118 ml RECTAL UNSCH PRN PRN Reason: SEE LABEL COMMENTS Sodium Chloride (Ns Flush) 2 ml IV.FLUSH BID [facility] Last Admin: 03/04/18 10:25 Dose: 2 ml Sodium Chloride (Ns Flush) 2 ml IV.FLUSH PRN PRN PRN Reason: FLUSH AFTER USING IV ACCESS Ticagrelor (Brilinta) 90 mg PO BID [facility] Last Admin: 03/04/18 10:24 Dose: 90 mg Timolol Maleate (Timoptic 0.5% Drops) 1 drops EACH EYE DAILY [facility] Last Admin: 03/04/18 10:25 Dose: 1 drops <Devaughn Chen - Last Filed: 03/04/18 15:44> Allergies Allergy/AdvReac Type Severity Reaction Status Date / Time No Known Allergies Allergy Verified 02/21/18 10:53 Home Medications Medication Instructions Recorded Confirmed Type albuterol sulfate [Ventolin HFA] 2 puff INHALATION Q4-6H PRN 02/20/18 02/20/18 History aspirin [Aspirin Low Dose] 81 mg PO DAILY 02/20/18 02/20/18 History brimonidine 1 drp OPHTHALMIC (EYE) TID 02/20/18 02/20/18 History clonidine 1 patch TRANSDERMAL QWEEK 02/20/18 02/20/18 History dorzolamide 1 drp OPHTHALMIC (EYE) TID 02/20/18 02/20/18 History ferrous sulfate, dried [Slow 160 mg PO DAILY 02/20/18 02/20/18 History Release Iron] loratadine [Claritin] 10 mg PO DAILY PRN 02/20/18 02/20/18 History metformin 500 mg PO BID 02/20/18 02/20/18 History pantoprazole 20 mg PO DAILY 02/20/18 02/20/18 History timolol 1 drop EACH EYE DAILY 02/20/18 02/20/18 History ticagrelor [Brilinta] 90 mg PO BID 02/24/18 02/24/18 History Exam Vital signs: Vital Signs 03/03/18 12:00 03/03/18 13:00 03/03/18 14:00 Temperature Pulse Rate 72 75 70 Respiratory Rate Blood Pressure Pulse Oximetry 03/03/18 15:00 03/03/18 16:00 03/03/18 17:00 Temperature 97.9 F Pulse Rate 82 82 72 Respiratory Rate 18 Blood Pressure 173/65 H Pulse Oximetry 97 03/03/18 18:00 03/03/18 19:00 03/03/18 20:00 Temperature 98.2 F Pulse Rate 67 69 74 Respiratory Rate 18 Blood Pressure 123/58 L Pulse Oximetry 95 03/03/18 21:00 03/03/18 22:00 03/03/18 23:00 Temperature Pulse Rate 74 80 64 Respiratory Rate Blood Pressure Pulse Oximetry 03/04/18 00:00 03/04/18 01:00 03/04/18 02:00 Temperature 98.2 F Pulse Rate 72 67 65 Respiratory Rate 18 Blood Pressure 127/58 L Pulse Oximetry 97 03/04/18 03:00 03/04/18 04:00 03/04/18 05:00 Temperature 98.2 F Pulse Rate 71 71 84 Respiratory Rate 18 Blood Pressure 129/60 Pulse Oximetry 96 03/04/18 06:00 Temperature Pulse Rate 68 Respiratory Rate Blood Pressure Pulse Oximetry Intake & Output 03/03/18 03/04/18 03/04/18 18:59 06:59 18:59 Intake Total 620 / 620 420 / 420 Output Total 1400 / 1400 750 / 750 Balance -780 / -780 -330 / -330 Weight 50.5 kg Intake: IV 200 / 200 Magnesium Sulfate 1 gm/D5W 100 200 / 200 ml Premix 100 ML @ 100 mls/hr IV.SIG Q1H MARIANO Rx#:[id number] Oral 420 / 420 420 / 420 Output: Urine 900 / 900 750 / 750 Stool 400 / 400 Emesis 100 / 100 Other: Date of Last Bowel Movement 03/03/18 # Bowel Movements 3 2 # Emeses 1 - Constitutional no acute distress - Routine HEENT Exam Head: Present: normocephalic - Routine Neck Exam Present: supple - Routine Respiratory Exam Present: CTA bilaterally - Routine Cardiovascular Exam Present: RRR - Routine Abdominal Exam Present: soft, normoactive bowel sounds. Absent: tenderness, distended - Routine Skin Exam Present: intact, dry - Routine Neurological Exam Present: alert, oriented X3 <Amawi,Ayazawla - Last Filed: 03/04/18 11:30> Vital signs: Vital Signs 03/03/18 16:00 03/03/18 17:00 03/03/18 18:00 Temperature Pulse Rate 82 72 67 Respiratory Rate Blood Pressure Pulse Oximetry 03/03/18 19:00 03/03/18 20:00 03/03/18 21:00 Temperature 98.2 F Pulse Rate 69 74 74 Respiratory Rate 18 Blood Pressure 123/58 L Pulse Oximetry 95 03/03/18 22:00 03/03/18 23:00 03/04/18 00:00 Temperature 98.2 F Pulse Rate 80 64 72 Respiratory Rate 18 Blood Pressure 127/58 L Pulse Oximetry 97 03/04/18 01:00 03/04/18 02:00 03/04/18 03:00 Temperature 98.2 F Pulse Rate 67 65 71 Respiratory Rate 18 Blood Pressure 129/60 Pulse Oximetry 96 03/04/18 04:00 03/04/18 05:00 03/04/18 06:00 Temperature Pulse Rate 71 84 68 Respiratory Rate Blood Pressure Pulse Oximetry Intake & Output 03/03/18 03/04/18 03/04/18 18:59 06:59 18:59 Intake Total 620 / 620 420 / 420 Output Total 1400 / 1400 750 / 750 Balance -780 / -780 -330 / -330 Weight 50.5 kg Intake: IV 200 / 200 Magnesium Sulfate 1 gm/D5W 100 200 / 200 ml Premix 100 ML @ 100 mls/hr IV.SIG Q1H MARIANO Rx#:[id number] Oral 420 / 420 420 / 420 Output: Urine 900 / 900 750 / 750 Stool 400 / 400 Emesis 100 / 100 Other: Date of Last Bowel Movement 03/03/18 # Bowel Movements 3 2 # Emeses 1 <Devaughn Chen A - Last Filed: 03/04/18 15:44> Results - Labs CBC & Chem 7: 03/04/18 04:43 03/04/18 04:43 Labs: Laboratory Results - last 24 hr 03/03/18 03/03/18 03/03/18 15:08 15:27 22:36 WBC RBC Hgb Hct MCV MCH MCHC RDW Plt Count MPV Neut % (Auto) Lymph % (Auto) [place] % (Auto) Eos % (Auto) Baso % (Auto) Neut # (Auto) Lymph # (Auto) [place] # (Auto) Eos # (Auto) Baso # (Auto) WBC Differential Differential Comment Sodium Potassium Chloride Carbon Dioxide Anion Gap BUN Creatinine Estimated GFR POC Glucose 95 91 122 H Random Glucose Calcium Total Bilirubin AST ALT Alkaline Phosphatase Total Protein Albumin Amylase Lipase 03/04/18 03/04/18 03/04/18 04:43 04:43 07:59 WBC 10.4 RBC 3.59 L Hgb 10.7 L Hct 30.5 L MCV 85.0 MCH 29.7 MCHC 35.0 RDW 15.5 Plt Count 285 D MPV 8.9 Neut % (Auto) 73.8 H Lymph % (Auto) 17.0 [place] % (Auto) 7.9 Eos % (Auto) 0.9 Baso % (Auto) 0.4 Neut # (Auto) 7.7 Lymph # (Auto) 1.8 [place] # (Auto) 0.8 Eos # (Auto) 0.1 Baso # (Auto) 0.0 WBC Differential . Differential Comment Auto diff final Sodium 137 Potassium 4.2 Chloride 100 Carbon Dioxide 29.8 Anion Gap 7 BUN 18 Creatinine 0.88 Estimated GFR 62 L POC Glucose 113 H Random Glucose 99 Calcium 8.3 L Total Bilirubin 0.6 AST 19 ALT 31 Alkaline Phosphatase 116 Total Protein 6.2 L D Albumin 2.6 L Amylase 143 H Lipase 1169 H - Imaging Impressions Gallbladder Ultrasound 03/04/18 00:00 CONCLUSION: 1. There are gallstones evident in the dependent portion of the gallbladder. No gallbladder wall thickening or pericholecystic fluid is identified. 2. Nonspecific, heterogeneous echotexture of the pancreas without focal mass. No pseudocyst identified. No pancreatic ductal dilation identified. <Lele Benton - Last Filed: 03/04/18 11:30> - Labs CBC & Chem 7: 03/04/18 04:43 03/04/18 04:43 Labs: Laboratory Results - last 24 hr 03/03/18 03/04/18 03/04/18 22:36 04:43 04:43 WBC 10.4 RBC 3.59 L Hgb 10.7 L Hct 30.5 L MCV 85.0 MCH 29.7 MCHC 35.0 RDW 15.5 Plt Count 285 D MPV 8.9 Neut % (Auto) 73.8 H Lymph % (Auto) 17.0 [place] % (Auto) 7.9 Eos % (Auto) 0.9 Baso % (Auto) 0.4 Neut # (Auto) 7.7 Lymph # (Auto) 1.8 [place] # (Auto) 0.8 Eos # (Auto) 0.1 Baso # (Auto) 0.0 WBC Differential . Differential Comment Auto diff final Sodium 137 Potassium 4.2 Chloride 100 Carbon Dioxide 29.8 Anion Gap 7 BUN 18 Creatinine 0.88 Estimated GFR 62 L POC Glucose 122 H Random Glucose 99 Calcium 8.3 L Total Bilirubin 0.6 AST 19 ALT 31 Alkaline Phosphatase 116 Total Protein 6.2 L D Albumin 2.6 L Amylase 143 H Lipase 1169 H 03/04/18 03/04/18 07:59 12:07 WBC RBC Hgb Hct MCV MCH MCHC RDW Plt Count MPV Neut % (Auto) Lymph % (Auto) [place] % (Auto) Eos % (Auto) Baso % (Auto) Neut # (Auto) Lymph # (Auto) [place] # (Auto) Eos # (Auto) Baso # (Auto) WBC Differential Differential Comment Sodium Potassium Chloride Carbon Dioxide Anion Gap BUN Creatinine Estimated GFR POC Glucose 113 H 166 H Random Glucose Calcium Total Bilirubin AST ALT Alkaline Phosphatase Total Protein Albumin Amylase Lipase - Imaging Impressions Gallbladder Ultrasound 03/04/18 00:00 CONCLUSION: 1. There are gallstones evident in the dependent portion of the gallbladder. No gallbladder wall thickening or pericholecystic fluid is identified. 2. Nonspecific, heterogeneous echotexture of the pancreas without focal mass. No pseudocyst identified. No pancreatic ductal dilation identified. <Devaughn Chen - Last Filed: 03/04/18 15:44> Assessment and Plan - Plan - Elevated lipase- unclear etiology, possible gallstones, biliary stones. possible drug induced Lipase 1169, amylase 143, LFTs wnl. Pt denies previous hx of pancreatitis Denies alcohol intake. Pt currently on Brilinta. Gallbladder Ultrasound 1. There are gallstones evident in the dependent portion of the gallbladder. No gallbladder wall thickening or pericholecystic fluid is identified. 2. Nonspecific, heterogeneous echotexture of the pancreas without focal mass. No pseudocyst identified. No pancreatic ductal dilation identified. EGD on 11/08/17 --->nonbleeding duodenal ulcer, gastritis, gastric erosion, and esophagitis, benign bx. Pt has been on Protonix and Sucralfate This is a pleasant - pt with CAD/hx of PR in 11/2017, HTN, PAD, hyperlipidemia, and diabetes mellitus. Pt was admitted for evaluation by Cardiothoracic surgery for CABG which was performed on . Plan: - Clears - MRCP - Lipids - Lipase/LFTs in the am - Pt is on Brilinta and is s/p CABG, she is high risk for procedures. - Supportive care - Hydration - Antiemetic meds - Pt seen and examined by Dr. Chen and myself and this note is written on his behalf <Lele Benton - Last Filed: 03/04/18 11:30> - Attending Attestation Seen and examined, plan as above. Will check MRCP results, ? drug induced pancreatitis (Brilinta) Further recommendations to follow. Thank you for the consult. <Devaughn Chen - Last Filed: 03/04/18 15:44>
--- NOTE | 2018-03-04 17:30 | P.PNCV ---
- Note Subjective/Hospital Course: 77-year-old patient of Dr. Baldomero Robert; also Kain Tinajero, Primary Care; who was electively admitted for a cardiac catheterization complaining of intermittent chest pain, midsternal heaviness radiating across her chest, mainly occurs at night. She has a significant history of coronary artery disease. She has been maximized on medication to include Imdur extended release 120 daily, Brilinta and aspirin; also has chronic claudication of her lower extremities, mainly the left leg. She was recently hospitalized for a non -STEMI in November 2017, where she underwent heart catheterization, placement of an Impella device. She had an orbital rotational atherectomy of the left main coronary artery, also a PCI endovascular stenting with bare metal stents the left main, mid left, anterior descending and diagonal branches. Despite maximizing medications the patient has had continued angina; underwent catheterization today, which showed an ejection fraction of 50%, left main disease of 90% proximal LAD, 90%, the mid distal LAD 30%. The diagonal was 90%, the circumflex was 20%, the RCA 90% and the ramus 75%. We were consulted to evaluate for coronary artery bypass grafting. PAST MEDICAL HISTORY: Includes peripheral arterial disease, hypertension, coronary artery disease, hyperlipidemia, chronic anemia, chronic kidney disease stage III, diabetes mellitus with neuropathy, hypertension, hyperlipidemia, lumbar radiculopathy. PAST SURGICAL HISTORY: Includes recent bare-metal stent placement and November 2017, bilateral cataract surgery. She has had an atherectomy of the left leg for SFA occlusion; EGD where they found nonbleeding ulcer some gastritis, 02/23 pt developed chest pain last pm, was started on NTG gtt, pain is now resolved CTA neck pending this am carotid US : 1. Right Internal Carotid Artery: High-grade to critical stenosis internal carotid origin , 2. 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 I was made aware of this issue this morning at ~830. 03/01/18 Much better today. Nausea has resolved. Ambulating with assist. 03/02 no further diarrhea, no further nausea PT recommending rehab family indecisive pt on room air/ plan for dc in am resume Chirag see notes for 03/03 ( discharge summary) pt noted to have elevate lipase - Elevated lipase- unclear etiology, possible gallstones, biliary stones. possible drug induced Gallbladder Ultrasound 03/04/18 1. There are gallstones evident in the dependent portion of the gallbladder. No gallbladder wall thickening or pericholecystic fluid is identified. 2. Nonspecific, heterogeneous echotexture of the pancreas without focal mass. No pseudocyst identified. No pancreatic ductal dilation identified. for MRCP, Lipase/LFTs in the am Objective: Vital Signs - 24 hr 03/03/18 18:00 03/03/18 19:00 03/03/18 20:00 Temperature 98.2 F Pulse Rate 67 69 74 Respiratory Rate 18 Blood Pressure 123/58 L Pulse Oximetry 95 03/03/18 21:00 03/03/18 22:00 03/03/18 23:00 Temperature Pulse Rate 74 80 64 Respiratory Rate Blood Pressure Pulse Oximetry 03/04/18 00:00 03/04/18 01:00 03/04/18 02:00 Temperature 98.2 F Pulse Rate 72 67 65 Respiratory Rate 18 Blood Pressure 127/58 L Pulse Oximetry 97 03/04/18 03:00 03/04/18 04:00 03/04/18 05:00 Temperature 98.2 F Pulse Rate 71 71 84 Respiratory Rate 18 Blood Pressure 129/60 Pulse Oximetry 96 03/04/18 06:00 03/04/18 07:00 03/04/18 08:00 Temperature 97.9 F Pulse Rate 68 82 82 Respiratory Rate 18 Blood Pressure 149/67 H Pulse Oximetry 97 03/04/18 09:00 03/04/18 10:00 03/04/18 11:00 Temperature 98.2 F Pulse Rate 68 78 73 Respiratory Rate 18 Blood Pressure 119/57 L Pulse Oximetry 97 03/04/18 12:00 03/04/18 13:00 03/04/18 14:00 Temperature Pulse Rate 72 92 H 81 Respiratory Rate Blood Pressure Pulse Oximetry GENERAL: A&O x 3 SKIN: Warm and dry. prevena dressing to chest HEAD: Normocephalic. EYES: No scleral icterus. No injection or drainage. NECK: Supple, trachea midline. No JVD or lymphadenopathy. CARDIOVASCULAR: Regular rate and rhythm without murmurs, gallops, or rubs. RESPIRATORY: Breath sounds equal bilaterally. No accessory muscle use. GASTROINTESTINAL: Abdomen soft, non-tender, nondistended. MUSCULOSKELETAL: No cyanosis, or edema. BACK: Nontender without obvious deformity. No CVA tenderness. Labs: Laboratory Results - last 12 hr 03/04/18 03/04/18 03/04/18 04:43 07:59 12:07 Sodium 137 Potassium 4.2 Chloride 100 Carbon Dioxide 29.8 Anion Gap 7 BUN 18 Creatinine 0.88 Estimated GFR 62 L POC Glucose 113 H 166 H Random Glucose 99 Calcium 8.3 L Total Bilirubin 0.6 AST 19 ALT 31 Alkaline Phosphatase 116 Total Protein 6.2 L D Albumin 2.6 L Amylase 143 H Lipase 1169 H Result Diagrams: 03/04/18 04:43 03/04/18 04:43 - Plan (1) PAD (peripheral artery disease) Plan: ASA (2) Carotid stenosis, bilateral Plan: CTA neck resulted : right ICA 60% , left ICA 50% will need outpt f/u with vascular surgery (3) CAD (coronary artery disease) Plan: ASA, BB , statin , OOB family now trying to decide on rehab vs C (4) Diabetes mellitus Plan: insulin sliding scale HGB A1C 5.1 metformin (6) Hyperlipidemia Plan: on statin (7) Normocytic anemia Plan: resume iron supplement (8) S/P CABG x 4 Plan: ASA, statin , BB OOB PT on SHRADDHA at home (3) CAD (coronary artery disease) Qualifiers: Coronary Disease-Associated Artery/Lesion type: [place] artery [place] vs. transplanted heart: [place] heart Associated angina: with unstable angina Qualified Code(s): I25.110 - Atherosclerotic heart disease of [place] coronary artery with unstable angina pectoris
[2018-03-05 06:35] LABS: Chol/HDL Ratio 2.71 Ratio; HDL Cholesterol 46.7 mg/dL (40.0-60.0); Total Protein 6.7 g/dL (6.4-8.2)
[2018-03-05] MEDS: Insulin NovoLOG Aspart Correctional Sugar Inj SQ SCH ×2 (09:08→11:56)
[2018-03-05] MEDS: Multivitamin/Minerals Therapeutic Tablet PO SCH (09:12)
[2018-03-05] MEDS: Metoprolol Tartrate 25 MG Tablet PO SCH (09:12)
[2018-03-05] MEDS: Polysaccharide Iron Complex 150 MG Capsule PO SCH (09:12)
[2018-03-05] MEDS: Furosemide 40 MG Tablet PO SCH (09:13)
[2018-03-05] MEDS: Brimonidine 0.2% Opth Drops 5 ML Bottle EACH EYE SCH ×2 (09:14→13:48)
[2018-03-05] MEDS: Timolol 0.5% Drops 5 ML Bottle EACH EYE SCH (09:14)
[2018-03-05] MEDS: Polyethylene Glycol 3350 17 GM Packet PO SCH (09:14)
[2018-03-05] MEDS: Dorzolamide 2% Opth Drops 10 ML Bottle EACH EYE SCH ×2 (09:14→13:48)
--- NOTE | 2018-03-05 10:32 | MR ---
EXAM DATE: 03/05/2018 10:24 AM EST AGE/SEX: 77 years / Female INDICATIONS: Cholelithiasis. CLINICAL DATA: This is the patient's initial encounter. Patient reports that signs and symptoms have been present for 1 day and indicates a pain score of 5/10. MEDICAL/SURGICAL HISTORY: Hypertension. Diabetes mellitus type II. Hysterectomy. CABG. Tonsi llectomy. Peripheral vascular stents. COMPARISON: [facility] [place] ABDOMEN - GALLBLADDER, 03/04/2018. . TECHNIQUE: Multiplanar, multisequence images of the abdomen were obtained without contrast including dedicated cholangiographic images. FINDINGS: Liver: The liver is homogeneous and normal in signal intensity with no focal defects. Intrahepatic Bile Ducts: There is no intrahepatic biliary ductal dilatation. Common Bile Duct: The common bile duct is normal in caliber No filling defects or obstructing lesio ns are identified. Gallbladder: Possible tiny stone in the neck of the gallbladder. Otherwise unremarkable Pancreas: The pancreas appears normal in signal with no focal parenchymal abnormalities. The pancrea tic duct is normal in caliber with no filling defects, or obstructing lesions identified. CONCLUSION: Tiny gallstone. Otherwise unremarkable Electronically signed by: Danny Pruitt MD 03/05/2018 10:31 AM EST
[2018-03-05 11:27] VITALS: RESP 18
--- NOTE | 2018-03-05 15:05 | P.PNCV ---
- Note Subjective/Hospital Course: 77-year-old patient of Dr. Baldomero Robert; also Kain Tinajero, Primary Care; who was electively admitted for a cardiac catheterization complaining of intermittent chest pain, midsternal heaviness radiating across her chest, mainly occurs at night. She has a significant history of coronary artery disease. She has been maximized on medication to include Imdur extended release 120 daily, Brilinta and aspirin; also has chronic claudication of her lower extremities, mainly the left leg. She was recently hospitalized for a non -STEMI in November 2017, where she underwent heart catheterization, placement of an Impella device. She had an orbital rotational atherectomy of the left main coronary artery, also a PCI endovascular stenting with bare metal stents the left main, mid left, anterior descending and diagonal branches. Despite maximizing medications the patient has had continued angina; underwent catheterization today, which showed an ejection fraction of 50%, left main disease of 90% proximal LAD, 90%, the mid distal LAD 30%. The diagonal was 90%, the circumflex was 20%, the RCA 90% and the ramus 75%. We were consulted to evaluate for coronary artery bypass grafting. PAST MEDICAL HISTORY: Includes peripheral arterial disease, hypertension, coronary artery disease, hyperlipidemia, chronic anemia, chronic kidney disease stage III, diabetes mellitus with neuropathy, hypertension, hyperlipidemia, lumbar radiculopathy. PAST SURGICAL HISTORY: Includes recent bare-metal stent placement and November 2017, bilateral cataract surgery. She has had an atherectomy of the left leg for SFA occlusion; EGD where they found nonbleeding ulcer some gastritis, 02/23 pt developed chest pain last pm, was started on NTG gtt, pain is now resolved CTA neck pending this am carotid US : 1. Right Internal Carotid Artery: High-grade to critical stenosis internal carotid origin , 2. 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 I was made aware of this issue this morning at ~830. 03/01/18 Much better today. Nausea has resolved. Ambulating with assist. 03/02 no further diarrhea, no further nausea PT recommending rehab family indecisive pt on room air/ plan for dc in am resume Delfinoilinta see notes for 03/03 ( discharge summary) pt noted to have elevate lipase - Elevated lipase- unclear etiology, possible gallstones, biliary stones. possible drug induced Gallbladder Ultrasound 03/04/18 1. There are gallstones evident in the dependent portion of the gallbladder. No gallbladder wall thickening or pericholecystic fluid is identified. 2. Nonspecific, heterogeneous echotexture of the pancreas without focal mass. No pseudocyst identified. No pancreatic ductal dilation identified. for MRCP, Lipase/LFTs in the am 03/05 lipase trending down MRCP with tiny gallstones ok from GI to dc Objective: Vital Signs - 24 hr 03/04/18 16:00 03/04/18 17:00 03/04/18 18:00 Temperature Pulse Rate 76 83 59 L Respiratory Rate Blood Pressure Pulse Oximetry 03/04/18 19:00 03/04/18 20:00 03/04/18 21:00 Temperature 97.7 F Pulse Rate 64 78 72 Respiratory Rate 16 Blood Pressure 157/68 H Pulse Oximetry 96 03/04/18 22:00 03/04/18 23:00 03/05/18 00:00 Temperature Pulse Rate 64 56 L 60 Respiratory Rate Blood Pressure Pulse Oximetry 03/05/18 00:18 03/05/18 01:00 03/05/18 02:00 Temperature 97.9 F Pulse Rate 62 62 64 Respiratory Rate 18 Blood Pressure 127/62 Pulse Oximetry 97 03/05/18 03:00 03/05/18 04:00 03/05/18 05:00 Temperature 97.7 F Pulse Rate 72 67 69 Respiratory Rate 16 Blood Pressure 157/68 H Pulse Oximetry 96 03/05/18 06:00 03/05/18 07:00 03/05/18 08:00 Temperature 98.7 F Pulse Rate 81 81 74 Respiratory Rate 18 Blood Pressure 132/64 Pulse Oximetry 95 03/05/18 09:00 03/05/18 10:00 03/05/18 11:00 Temperature 98.2 F Pulse Rate 83 78 78 Respiratory Rate 18 Blood Pressure 134/63 Pulse Oximetry 97 03/05/18 12:00 03/05/18 13:00 Temperature Pulse Rate 72 87 Respiratory Rate Blood Pressure Pulse Oximetry Labs: Laboratory Results - last 12 hr 03/05/18 03/05/18 03/05/18 05:14 09:11 10:42 POC Glucose 102 105 Total Bilirubin 0.8 Direct Bilirubin 0.2 Indirect Bilirubin 0.6 AST 24 ALT 32 Alkaline Phosphatase 115 Total Protein 6.7 Albumin 3.0 L Triglycerides 212 H Cholesterol 127 LDL Cholesterol, Calc 38 HDL Cholesterol 46.7 Cholesterol/HDL Ratio 2.71 Lipase 840 H Result Diagrams: 03/04/18 04:43 03/04/18 04:43 - Plan (1) PAD (peripheral artery disease) Plan: ASA (2) Carotid stenosis, bilateral Plan: CTA neck resulted : right ICA 60% , left ICA 50% will need outpt f/u with vascular surgery (3) CAD (coronary artery disease) Plan: ASA, BB , statin , OOB family now trying to decide on rehab vs C (4) Diabetes mellitus Plan: insulin sliding scale HGB A1C 5.1 metformin (6) Hyperlipidemia Plan: on statin (7) Normocytic anemia Plan: resume iron supplement (8) S/P CABG x 4 Plan: ASA, statin , BB OOB PT on SHRADDHA at home (3) CAD (coronary artery disease) Qualifiers: Coronary Disease-Associated Artery/Lesion type: [place] artery [place] vs. transplanted heart: [place] heart Associated angina: with unstable angina Qualified Code(s): I25.110 - Atherosclerotic heart disease of [place] coronary artery with unstable angina pectoris
[2018-03-05 15:50] VITALS: BP 151/68; TEMP 97.9; O2SAT 96
[2018-03-05 16:06] VITALS: PULSE 76
--- NOTE | 2018-03-05 17:16 | P.PNGI ---
Subjective Interval history: Patient sitting up in chair at bedside Family visiting Patient reports occasional nausea Denies abdominal pain Post MRCP <Stephenie Smith - Last Filed: 03/05/18 17:11> Physical Exam Vital signs: Vital Signs 03/04/18 18:00 03/04/18 19:00 03/04/18 20:00 Temperature Pulse Rate 59 L 64 78 Respiratory Rate Blood Pressure Pulse Oximetry 03/04/18 21:00 03/04/18 22:00 03/04/18 23:00 Temperature 97.7 F Pulse Rate 72 64 56 L Respiratory Rate 16 Blood Pressure 157/68 H Pulse Oximetry 96 03/05/18 00:00 03/05/18 00:18 03/05/18 01:00 Temperature 97.9 F Pulse Rate 60 62 62 Respiratory Rate 18 Blood Pressure 127/62 Pulse Oximetry 97 03/05/18 02:00 03/05/18 03:00 03/05/18 04:00 Temperature 97.7 F Pulse Rate 64 72 67 Respiratory Rate 16 Blood Pressure 157/68 H Pulse Oximetry 96 03/05/18 05:00 03/05/18 06:00 03/05/18 07:00 Temperature 98.7 F Pulse Rate 69 81 81 Respiratory Rate 18 Blood Pressure 132/64 Pulse Oximetry 95 03/05/18 08:00 03/05/18 09:00 03/05/18 10:00 Temperature Pulse Rate 74 83 78 Respiratory Rate Blood Pressure Pulse Oximetry 03/05/18 11:00 03/05/18 12:00 03/05/18 13:00 Temperature 98.2 F Pulse Rate 78 72 87 Respiratory Rate 18 Blood Pressure 134/63 Pulse Oximetry 97 03/05/18 14:00 03/05/18 15:00 03/05/18 16:00 Temperature 97.9 F Pulse Rate 84 78 76 Respiratory Rate 18 Blood Pressure 151/68 H Pulse Oximetry 96 Intake & Output 03/04/18 03/05/18 03/05/18 18:59 06:59 18:59 Intake Total 400 / 400 420 / 420 Output Total 800 / 800 700 / 700 Balance -400 / -400 -280 / -280 Weight 48 kg Intake: Oral 400 / 400 420 / 420 Output: Urine 800 / 800 600 / 600 Stool 100 / 100 Other: # Voids 3 Date of Last Bowel Movement 03/04/18 03/04/18 # Bowel Movements 2 1 - Constitutional no acute distress, chronically ill appearing - Routine HEENT Exam Head: Present: normocephalic - Routine Respiratory Exam Present: CTA bilaterally - Routine Abdominal Exam Present: soft, normoactive bowel sounds. Absent: tenderness, distended, guarding, firm - Routine Skin Exam Present: dry, warm - Routine Neurological Exam Present: alert - Routine Psychiatric Exam Present: normal affect, cooperative - Urinary Catheter Management Indwelling Temp Sensing Catheter Cath placed during this visit: yes, but has since been removed by the nurse Reason for continuing: Decision to DC catheter Insertion date: 02/25/18 Insertion time: 07:30 Removal date: 02/26/18 Removal time: 05:00 <Stephenie Smith - Last Filed: 03/05/18 17:11> Vital signs: Vital Signs 03/04/18 21:00 03/04/18 22:00 03/04/18 23:00 Temperature 97.7 F Pulse Rate 72 64 56 L Respiratory Rate 16 Blood Pressure 157/68 H Pulse Oximetry 96 03/05/18 00:00 03/05/18 00:18 03/05/18 01:00 Temperature 97.9 F Pulse Rate 60 62 62 Respiratory Rate 18 Blood Pressure 127/62 Pulse Oximetry 97 03/05/18 02:00 03/05/18 03:00 03/05/18 04:00 Temperature 97.7 F Pulse Rate 64 72 67 Respiratory Rate 16 Blood Pressure 157/68 H Pulse Oximetry 96 03/05/18 05:00 03/05/18 06:00 03/05/18 07:00 Temperature 98.7 F Pulse Rate 69 81 81 Respiratory Rate 18 Blood Pressure 132/64 Pulse Oximetry 95 03/05/18 08:00 03/05/18 09:00 03/05/18 10:00 Temperature Pulse Rate 74 83 78 Respiratory Rate Blood Pressure Pulse Oximetry 03/05/18 11:00 03/05/18 12:00 03/05/18 13:00 Temperature 98.2 F Pulse Rate 78 72 87 Respiratory Rate 18 Blood Pressure 134/63 Pulse Oximetry 97 03/05/18 14:00 03/05/18 15:00 03/05/18 16:00 Temperature 97.9 F Pulse Rate 84 78 76 Respiratory Rate 18 Blood Pressure 151/68 H Pulse Oximetry 96 Intake & Output 03/05/18 03/05/18 03/06/18 06:59 18:59 06:59 Intake Total 420 / 420 Output Total 700 / 700 Balance -280 / -280 Weight 48 kg Intake: Oral 420 / 420 Output: Urine 600 / 600 Stool 100 / 100 Other: # Voids 3 Date of Last Bowel Movement 03/04/18 # Bowel Movements 1 - Urinary Catheter Management Indwelling Temp Sensing Catheter Cath placed during this visit: no <Devaughn Chen - Last Filed: 03/05/18 20:43> Results - Labs CBC & Chem 7: 03/04/18 04:43 03/04/18 04:43 Laboratory Results - last 24 hr 03/04/18 03/04/18 03/04/18 17:44 18:41 21:19 POC Glucose 60 L 135 H 226 H Total Bilirubin Direct Bilirubin Indirect Bilirubin AST ALT Alkaline Phosphatase Total Protein Albumin Triglycerides Cholesterol LDL Cholesterol, Calc HDL Cholesterol Cholesterol/HDL Ratio Lipase 03/05/18 03/05/18 03/05/18 00:22 05:14 09:11 POC Glucose 86 102 Total Bilirubin 0.8 Direct Bilirubin 0.2 Indirect Bilirubin 0.6 AST 24 ALT 32 Alkaline Phosphatase 115 Total Protein 6.7 Albumin 3.0 L Triglycerides 212 H Cholesterol 127 LDL Cholesterol, Calc 38 HDL Cholesterol 46.7 Cholesterol/HDL Ratio 2.71 Lipase 840 H 03/05/18 03/05/18 10:42 16:29 POC Glucose 105 227 H Total Bilirubin Direct Bilirubin Indirect Bilirubin AST ALT Alkaline Phosphatase Total Protein Albumin Triglycerides Cholesterol LDL Cholesterol, Calc HDL Cholesterol Cholesterol/HDL Ratio Lipase - Imaging Impressions Cholangiopancreatography MRI 03/05/18 00:00 CONCLUSION: Tiny gallstone. Otherwise unremarkable - Procedures Date of procedure: 02/25/18 Procedure: Pump-assisted CABG x 4 EDUARDO to LAd - good SVG to PDA - good SVG to RI - good SVG to D1 - good EVH (bilateral) TYRELL <Stephenie Smith - Last Filed: 03/05/18 17:11> - Labs CBC & Chem 7: 03/04/18 04:43 03/04/18 04:43 Laboratory Results - last 24 hr 03/04/18 03/05/18 03/05/18 21:19 00:22 05:14 POC Glucose 226 H 86 Total Bilirubin 0.8 Direct Bilirubin 0.2 Indirect Bilirubin 0.6 AST 24 ALT 32 Alkaline Phosphatase 115 Total Protein 6.7 Albumin 3.0 L Triglycerides 212 H Cholesterol 127 LDL Cholesterol, Calc 38 HDL Cholesterol 46.7 Cholesterol/HDL Ratio 2.71 Lipase 840 H 03/05/18 03/05/18 03/05/18 09:11 10:42 16:29 POC Glucose 102 105 227 H Total Bilirubin Direct Bilirubin Indirect Bilirubin AST ALT Alkaline Phosphatase Total Protein Albumin Triglycerides Cholesterol LDL Cholesterol, Calc HDL Cholesterol Cholesterol/HDL Ratio Lipase - Imaging Impressions Cholangiopancreatography MRI 03/05/18 00:00 CONCLUSION: Tiny gallstone. Otherwise unremarkable <Devaughn Chen - Last Filed: 03/05/18 20:43> Assessment and Plan - Plan - Elevated lipase- unclear etiology, possible gallstones, biliary stones. possible drug induced Lipase 1169, amylase 143, LFTs wnl. Pt denies previous hx of pancreatitis Denies alcohol intake. Pt currently on Brilinta. Gallbladder Ultrasound 1. There are gallstones evident in the dependent portion of the gallbladder. No gallbladder wall thickening or pericholecystic fluid is identified. 2. Nonspecific, heterogeneous echotexture of the pancreas without focal mass. No pseudocyst identified. No pancreatic ductal dilation identified. EGD on 11/08/17 --->nonbleeding duodenal ulcer, gastritis, gastric erosion, and esophagitis, benign bx. Pt has been on Protonix and Sucralfate This is a pleasant - pt with CAD/hx of DC in 11/2017, HTN, PAD, hyperlipidemia, and diabetes mellitus. Pt was admitted for evaluation by Cardiothoracic surgery for CABG which was performed on . 03/05/2018 Patient reports occasional nausea, denies abdominal pain. Post CABG on 03/02/2018 03/05/2018 MRCP revealed the following findings--Tiny gallstone. Otherwise unremarkable Total bilirubin 0.8 AST 24 ALT 32 alk phos 115 all within normal limits. Lipase 840, improved from 03/04/2018 1169 Plan: -Cardiac diet -Monitor labs -Patient on Brilinta status post CABG -Supportive care -Analgesia and antiemetics as per attending -Further recommendations to follow This patient has been seen by myself and Dr. Chen and this note is written on his behalf - Attending Attestation Dr. Chen <Stephenie Smith - Last Filed: 03/05/18 17:11> - Attending Attestation Acute idiopathic pancreatitis, improving clinically. If symptoms recur will need extensive work up. Follow up for now <Devaughn Chen - Last Filed: 03/05/18 20:43>
== END 2018-03-05 17:00 | disposition home health service (06) ==
LOC: HDOC 08:17 → HDIC 08:21 → HCIS 16:52 → HCPC 02-21 20:16 → HCVI 02-25 13:27 → HCPC 02-26 13:04
PROVIDERS: ADMIT Thoracic Surgery (Cardiothoracic Vascular Surgery); ATTEND Thoracic Surgery (Cardiothoracic Vascular Surgery)